=== PATIENT | male | born 1965 | race Hispanic/Latino ===

== ENCOUNTER 2021-07-11 16:30 | Inpatient (IN) | payer OTHER, SELFPAY ==
--- OUTSIDE RECORDS SUMMARY | 2021-07-11 16:37 | XMS REPORT | Continuity of Care Document ---
:1965 Author Organization [facility] t Address [address] [place] [address] Care Team Providers Name Role Phone MOY HINES Attending Clinician Unavailable MARLYS PETTIT Attending Clinician Unavailable Hayder SNAGGERMoy Luz Attending Clinician Pob, Adc Lab Main Attending Clinician Unavailable Doctor Unassigned, Name Attending Clinician Unavailable Vtc-Lab Attending Clinician Unavailable Scooter Coats DO Attending Clinician MD MANNY Attending Clinician Unavailable MANNY Attending Clinician Unavailable OSCAR PIMENTEL Attending Clinician Unavailable Aubrey ENG Attending Clinician MD MANNY Admitting Clinician Unavailable OSCAR PIMENTEL Admitting Clinician Unavailable Payers Payer Name Policy Type Policy Number Effective Date Expiration Date S ource Problems Condition Condition Condition Status Onset Resolution Last Treating Co mments Source Name Details Category Date Date Treatment Clinician Date Colon Colon Disease [facility] 2018[facility] [place] [facility] [place] screening [place] note Medical might be Branch different from the original. Added automatic ally from request for surgery [id number] Family Family Disease Active 2018-08 Overview: [facility] s history of history of 0-30 [place] ity of colon colon 00:00: g of this [place] cancer in cancer in 00 note Medi casimiro father father might be Branch different from the original. Added automatic ally from request for surgery [id number] Mild Mild Disease Active Univers intermitte intermitte 02-25 [place] of nt asthma [place] asthma [place] 00 Medical exacerbati exacerbati Br anch on on Prediabete Prediabete Disease Active U nivers s s 02-25 ity of 00:00: [place] 00 Medical Branch Elevated Elevated Disease Active Unive rs liver liver 02-25 ity of enzymes enzymes 00:00: [place] 00 Medical Branch Allergies, Adverse Reactions, Alerts Allergy Allergy Status Severity Reaction(s) Onset Inactive Treating Comm ents Source Name Type Date Date Clinician Statins- Propensi Active Other - See 2017-08 Muscle U nivers Hmg-Coa ty to comments 2-13 cramping ity o f Reductas adverse 00:00: [place] e reaction 00 Medical Inhibito s to Branch rs drug STATINS- Drug Active Other-Cmnt 2017-08 Univ ers HMG-COA Class 2-13 ity of REDUCTAS 00:00: [place] E 00 Medical INHIBITO Branch RS Social History Social Habit Start Date Stop Date Quantity Comments Source Exposure to Not sure [facility] SARS-CoV-2 [facility] (event) [place] History of User of smokeless Univers ity of tobacco use tobacco [facility] Tobacco use and 2021-02-16 2021-02-16 Former user Universi ty of exposure 00:00:00 00:00:00 [facility] Alcohol intake 2021-02-16 2021-02-16 Current drinker Unive rsity of 00:00:00 00:00:00 of alcohol [facility] (finding) [place] Alcohol Comment 2018-08-07 2018-08-07 1-2 per month Univer sity of 00:00:00 00:00:00 [facility] Sex [birth year] At [birth year] Universit y of 00:00:00 00:00:00 [facility] Smoking Status Start Date Stop Date Source Never smoker [facility] Medications Ordered Filled Start Stop Current Ordering Indication Dosage Frequency Signature Comments Components Source Medication Medication Date Date Medication? Clinician (SIG) Name Name ONELCHAS, 2020- No [id number] 2g Take 2 [place] omega-3-aci 7- 10-08 capsules ity of d ethyl 00:00: 04:59 by mouth 2 [place] esters, 1 00 :00 (two) Medical gram times Branch capsule daily for 90 days. BERENICECEPA Yes [id number] 2g Take 2 U nivers gram 7-08 capsules ity of capsule 00:00: [place] 2 [place] (two) Medical times Branch daily. VASCEPA Yes [id number] 2g Take 2 U nivers gram 7-08 capsules ity of capsule 00:00: [place] 2 [place] 00 (two) Medical times Branch daily. albuterol 2020-0 2021- No [id number] 2.5mg Inhale 3 Univers 2.5 mg /3 6-28 09-27 mL every 4 ity of mL (0.083 00:00: 04:59 (four) [place] %) 00 :00 hours as Medical nebulizer needed for Bran ch solution Wheezing or Shortness of Breath for up to 90 days. albuterol 2020-0 2021- No [id number] 2.5mg Inhale 3 Univers 2.5 mg /3 6-28 09-27 mL every 4 ity of mL (0.083 00:00: 04:59 (four) [place] %) 00 :00 hours as Medical nebulizer needed for Bran ch solution Wheezing or Shortness of Breath for up to 90 days. albuterol 2020-0 2021- No [id number] 2.5mg Inhale 3 Univers 2.5 mg /3 6-28 09-27 mL every 4 ity of mL (0.083 00:00: 04:59 (four) [place] %) 00 :00 hours as Medical nebulizer needed for Bran ch solution Wheezing or Shortness of Breath for up to 90 days. albuterol 2020-0 2021- No [id number] 2.5mg Inhale 3 Univers 2.5 mg /3 6-28 09-27 mL every 4 ity of mL (0.083 00:00: 04:59 (four) [place] %) 00 :00 hours as Medical nebulizer needed for Bran ch solution Wheezing or Shortness of Breath for up to 90 days. albuterol 2020-0 2021- No [id number] 2.5mg Inhale 3 Univers 2.5 mg /3 6-28 09-27 mL every 4 ity of mL (0.083 00:00: 04:59 (four) [place] %) 00 :00 hours as Medical nebulizer needed for Bran ch solution Wheezing or Shortness of Breath for up to 90 days. albuterol 2020-0 Yes [id number] 2.5mg Inhale 3 Univers 2.5 mg /3 6-25 mL every 4 ity of mL (0.083 00:00: (four) [place] %) 00 hours as Medical nebulizer needed for Bran ch solution Wheezing or Shortness of Breath. azelastine Yes [id number] 2{spray Use 2 Univers 137 mcg 6-25 } Sprays in ity of (0.1 %) 00:00: each [place] nasal spray 00 nostril Medic al daily. Use Branch in each nostril as directed ezetimibe Yes [id number] 10mg Take 1 U nivers 10 mg 6-25 tablet by ity of tablet 00:00: mouth [place] 00 daily. Medical Branch fluticasone Yes [id number] 2{spray Use 2 Univers propionate 6-25 } Sprays in ity of 50 00:00: each [place] mcg/actuati 00 nostril Medic al on nasal daily. Branch spray gabapentin Yes [id number] 100mg Take 1 Univers 100 mg 6-25 capsule by ity of capsule 00:00: mouth 3 [place] 00 (three) Medical times Branch daily as needed for Pain (scale 4-6). icosapent Yes [id number] 2g Take 2 U nivers ethyL 6-25 capsules ity of (VASCEPA) 1 00:00: by mouth 2 [place] gram 00 (two) Medical capsule times Branch daily. ipratropium Yes [id number] .5mg Inhale 2.5 Univers 0.02 % 6-25 mL every 6 ity of nebulizer 00:00: (six) [place] solution 00 hours as Medical needed for Branch Wheezing or Shortness of Breath. liraglutide Yes [id number] .6mg inject 0.6 Univers (VICTOZA 6-25 mg under ity of 2-DIANA) 0.6 00:00: the skin [place] as mg/0.1 mL 00 daily. Medical (18 mg/3 Branch mL) injection lisinopriL Yes [id number] 5mg Take 1 U nivers 5 mg tablet 6-25 tablet by ity of 00:00: mouth [place] 00 daily. Medical Branch metFORMIN Yes [id number] 500mg Take 1 Univers 500 mg 6-25 tablet by ity of tablet 00:00: mouth 2 [place] 00 (two) Medical times Branch daily with meals. montelukast Yes [id number] 10mg Take 1 Univers 10 mg 6-25 tablet by ity of tablet 00:00: mouth [place] 00 daily. Medical Branch sildenafiL Yes [id number] 50mg Take 1 Univers 50 mg 6-25 tablet by ity of tablet 00:00: mouth as [place] 00 needed for Medical Other (PRN Branch ED). albuterol 0 Yes [id number] 2.5mg Inhale 3 Univers 2.5 mg /3 6-25 mL every 4 ity of mL (0.083 00:00: (four) [place] %) 00 hours as Medical nebulizer needed for Bran ch solution Wheezing or Shortness of Breath. azelastine Yes [id number] 2{spray Use 2 Univers 137 mcg 6-25 } Sprays in ity of (0.1 %) 00:00: each [place] nasal spray 00 nostril Medic al daily. Use Branch in each nostril as directed ezetimibe Yes [id number] 10mg Take 1 U nivers 10 mg 6-25 tablet by ity of tablet 00:00: mouth [place] 00 daily. Medical Branch fluticasone Yes [id number] 2{spray Use 2 Univers propionate 6-25 } Sprays in ity of 50 00:00: each [place] mcg/actuati 00 nostril Medic al on nasal daily. Branch spray gabapentin Yes [id number] 100mg Take 1 Univers 100 mg 6-25 capsule by ity of capsule 00:00: mouth 3 [place] 00 (three) Medical times Branch daily as needed for Pain (scale 4-6). icosapent Yes [id number] 2g Take 2 U nivers ethyL 6-25 capsules ity of (VASCEPA) 1 00:00: by mouth 2 [place] gram 00 (two) Medical capsule times Branch daily. ipratropium Yes [id number] .5mg Inhale 2.5 Univers 0.02 % 6-25 mL every 6 ity of nebulizer 00:00: (six) [place] solution 00 hours as Medical needed for Branch Wheezing or Shortness of Breath. liraglutide Yes [id number] .6mg inject 0.6 Univers (VICTOZA 6-25 mg under ity of 2-DIANA) 0.6 00:00: the skin [place] mg/0.1 mL 00 daily. Medical (18 mg/3 Branch mL) injection lisinopriL Yes [id number] 5mg Take 1 U nivers 5 mg tablet 6-25 tablet by ity of 00:00: mouth [place] 00 daily. Medical Branch metFORMIN Yes [id number] 500mg Take 1 Univers 500 mg 6-25 tablet by ity of tablet 00:00: mouth 2 [place] 00 (two) Medical times Branch daily with meals. montelukast Yes [id number] 10mg Take 1 Univers 10 mg 6-25 tablet by ity of tablet 00:00: mouth [place] 00 daily. Medical Branch sildenafiL Yes [id number] 50mg Take 1 Univers 50 mg 6-25 tablet by ity of tablet 00:00: mouth as [place] 00 needed for Medical Other (PRN Branch ED). azelastine Yes [id number] 2{spray Use 2 Univers 137 mcg 6-25 } Sprays in ity of (0.1 %) 00:00: each [place] nasal spray 00 nostril Medic al daily. Use Branch in each nostril as directed ezetimibe Yes [id number] 10mg Take 1 U nivers 10 mg 6-25 tablet by ity of tablet 00:00: mouth [place] 00 daily. Medical Branch fluticasone Yes [id number] 2{spray Use 2 Univers propionate 6-25 } Sprays in ity of 50 00:00: each [place] mcg/actuati 00 nostril Medic al on nasal daily. Branch spray gabapentin Yes [id number] 100mg Take 1 Univers 100 mg 6-25 capsule by ity of capsule 00:00: mouth 3 [place] 00 (three) Medical times Branch daily as needed for Pain (scale 4-6). icosapent Yes [id number] 2g Take 2 U nivers ethyL 6-25 capsules ity of (VASCEPA) 1 00:00: by mouth 2 [place] gram 00 (two) Medical capsule times Branch daily. ipratropium Yes [id number] .5mg Inhale 2.5 Univers 0.02 % 6-25 mL every 6 ity of nebulizer 00:00: (six) [place] solution 00 hours as Medical needed for Branch Wheezing or Shortness of Breath. liraglutide Yes [id number] .6mg inject 0.6 Univers (VICTOZA 6-25 mg under ity of 2-DIANA) 0.6 00:00: the skin [place] mg/0.1 mL 00 daily. Medical (18 mg/3 Branch mL) injection lisinopriL Yes [id number] 5mg Take 1 U nivers 5 mg tablet 6-25 tablet by ity of 00:00: mouth [place] 00 daily. Medical Branch metFORMIN Yes [id number] 500mg Take 1 Univers 500 mg 6-25 tablet by ity of tablet 00:00: mouth 2 [place] 00 (two) Medical times Branch daily with meals. montelukast Yes [id number] 10mg Take 1 Univers 10 mg 6-25 tablet by ity of tablet 00:00: mouth [place] 00 daily. Medical Branch sildenafiL Yes [id number] 50mg Take 1 Univers 50 mg 6-25 tablet by ity of tablet 00:00: mouth as [place] 00 needed for Medical Other (PRN Branch ED). azelastine Yes [id number] 2{spray Use 2 Univers 137 mcg 6-25 } Sprays in ity of (0.1 %) 00:00: each [place] nasal spray 00 nostril Medic al daily. Use Branch in each nostril as directed ezetimibe Yes [id number] 10mg Take 1 U nivers 10 mg 6-25 tablet by ity of tablet 00:00: mouth [place] 00 daily. Medical Branch fluticasone Yes [id number] 2{spray Use 2 Univers propionate 6-25 } Sprays in ity of 50 00:00: each [place] mcg/actuati 00 nostril Medic al on nasal daily. Branch spray gabapentin Yes [id number] 100mg Take 1 Univers 100 mg 6-25 capsule by ity of capsule 00:00: mouth 3 [place] 00 (three) Medical times Branch daily as needed for Pain (scale 4-6). icosapent Yes [id number] 2g Take 2 U nivers ethyL 6-25 capsules ity of (VASCEPA) 1 00:00: by mouth 2 [place] gram 00 (two) Medical capsule times Branch daily. ipratropium Yes [id number] .5mg Inhale 2.5 Univers 0.02 % 6-25 mL every 6 ity of nebulizer 00:00: (six) [place] solution 00 hours as Medical needed for Branch Wheezing or Shortness of Breath. liraglutide Yes [id number] .6mg inject 0.6 Univers (VICTOZA 6-25 mg under ity of 2-DIANA) 0.6 00:00: the skin [place] mg/0.1 mL 00 daily. Medical (18 mg/3 Branch mL) injection lisinopriL Yes [id number] 5mg Take 1 U nivers 5 mg tablet 6-25 tablet by ity of 00:00: mouth [place] 00 daily. Medical Branch metFORMIN Yes [id number] 500mg Take 1 Univers 500 mg 6-25 tablet by ity of tablet 00:00: mouth 2 [place] 00 (two) Medical times Branch daily with meals. montelukast Yes [id number] 10mg Take 1 Univers 10 mg 6-25 tablet by ity of tablet 00:00: mouth [place] 00 daily. Medical Branch sildenafiL Yes [id number] 50mg Take 1 Univers 50 mg 6-25 tablet by ity of tablet 00:00: mouth as [place] 00 needed for Medical Other (PRN Branch ED). azelastine Yes [id number] 2{spray Use 2 Univers 137 mcg 6-25 } Sprays in ity of (0.1 %) 00:00: each [place] nasal spray 00 nostril Medic al daily. Use Branch in each nostril as directed ezetimibe Yes [id number] 10mg Take 1 U nivers 10 mg 6-25 tablet by ity of tablet 00:00: mouth [place] 00 daily. Medical Branch fluticasone Yes [id number] 2{spray Use 2 Univers propionate 6-25 } Sprays in ity of 50 00:00: each [place] mcg/actuati 00 nostril Medic al on nasal daily. Branch spray gabapentin Yes [id number] 100mg Take 1 Univers 100 mg 6-25 capsule by ity of capsule 00:00: mouth 3 [place] 00 (three) Medical times Branch daily as needed for Pain (scale 4-6). icosapent Yes [id number] 2g Take 2 U nivers ethyL 6-25 capsules ity of (VASCEPA) 1 00:00: by mouth 2 [place] gram 00 (two) Medical capsule times Branch daily. ipratropium Yes [id number] .5mg Inhale 2.5 Univers 0.02 % 6-25 mL every 6 ity of nebulizer 00:00: (six) [place] solution 00 hours as Medical needed for Branch Wheezing or Shortness of Breath. liraglutide Yes [id number] .6mg inject 0.6 Univers (VICTOZA 6-25 mg under ity of 2-DIANA) 0.6 00:00: the skin [place] as mg/0.1 mL 00 daily. Medical (18 mg/3 Branch mL) injection lisinopriL Yes [id number] 5mg Take 1 U nivers 5 mg tablet 6-25 tablet by ity of 00:00: mouth [place] 00 daily. Medical Branch metFORMIN Yes [id number] 500mg Take 1 Univers 500 mg 6-25 tablet by ity of tablet 00:00: mouth 2 [place] 00 (two) Medical times Branch daily with meals. montelukast Yes [id number] 10mg Take 1 Univers 10 mg 6-25 tablet by ity of tablet 00:00: mouth [place] 00 daily. Medical Branch sildenafiL Yes [id number] 50mg Take 1 Univers 50 mg 6-25 tablet by ity of tablet 00:00: mouth as [place] 00 needed for Medical Other (PRN Branch ED). azelastine Yes [id number] 2{spray Use 2 Univers 137 mcg 6-25 } Sprays in ity of (0.1 %) 00:00: each [place] nasal spray 00 nostril Medic al daily. Use Branch in each nostril as directed ezetimibe Yes [id number] 10mg Take 1 U nivers 10 mg 6-25 tablet by ity of tablet 00:00: mouth [place] 00 daily. Medical Branch fluticasone Yes [id number] 2{spray Use 2 Univers propionate 6-25 } Sprays in ity of 50 00:00: each [place] mcg/actuati 00 nostril Medic al on nasal daily. Branch spray gabapentin Yes [id number] 100mg Take 1 Univers 100 mg 6-25 capsule by ity of capsule 00:00: mouth 3 [place] 00 (three) Medical times Branch daily as needed for Pain (scale 4-6). ipratropium Yes [id number] .5mg Inhale 2.5 Univers 0.02 % 6-25 mL every 6 ity of nebulizer 00:00: (six) [place] solution 00 hours as Medical needed for Branch Wheezing or Shortness of Breath. liraglutide Yes [id number] .6mg inject 0.6 Univers (VICTOZA 6-25 mg under ity of 2-DIANA) 0.6 00:00: the skin [place] as mg/0.1 mL 00 daily. Medical (18 mg/3 Branch mL) injection lisinopriL Yes [id number] 5mg Take 1 U nivers 5 mg tablet 6-25 tablet by ity of 00:00: mouth [place] 00 daily. Medical Branch metFORMIN Yes [id number] 500mg Take 1 Univers 500 mg 6-25 tablet by ity of tablet 00:00: mouth 2 00 (two) Medical times Branch daily with meals. montelukast Yes [id number] 10mg Take 1 Univers 10 mg 6-25 tablet by ity of tablet 00:00: mouth [place] 00 daily. Medical Branch sildenafiL Yes [id number] 50mg Take 1 Univers 50 mg 6-25 tablet by ity of tablet 00:00: mouth as [place] 00 needed for Medical Other (PRN Branch ED). azelastine Yes [id number] 2{spray Use 2 Univers 137 mcg 6-25 } Sprays in ity of (0.1 %) 00:00: each [place] nasal spray 00 nostril Medic al daily. Use Branch in each nostril as directed ezetimibe Yes [id number] 10mg Take 1 U nivers 10 mg 6-25 tablet by ity of tablet 00:00: mouth [place] 00 daily. Medical Branch fluticasone Yes [id number] 2{spray Use 2 [facility] propionate 6-25 } Sprays in ity of 50 00:00: each [place] mcg/actuati 00 nostril Medic al on nasal daily. Branch spray gabapentin Yes [id number] 100mg Take 1 Univers 100 mg 6-25 capsule by ity of capsule 00:00: mouth 3 [place] 00 (three) Medical times Branch daily as needed for Pain (scale 4-6). ipratropium Yes [id number] .5mg Inhale 2.5 Univers 0.02 % 6-25 mL every 6 ity of nebulizer 00:00: (six) [place] solution 00 hours as Medical needed for Branch Wheezing or Shortness of Breath. liraglutide Yes [id number] .6mg inject 0.6 Univers (VICTOZA 6-25 mg under ity of 2-DIANA) 0.6 00:00: the skin [place] as mg/0.1 mL 00 daily. Medical (18 mg/3 Branch mL) injection lisinopriL 0 Yes [id number] 5mg Take 1 U nivers 5 mg tablet 6-25 tablet by ity of 00:00: mouth [place] 00 daily. Medical Branch metFORMIN 0 Yes [id number] 500mg Take 1 Univers 500 mg 6-25 tablet by ity of tablet 00:00: mouth 2 [place] 00 (two) Medical times Branch daily with meals. montelukast Yes [id number] 10mg Take 1 Univers 10 mg 6-25 tablet by ity of tablet 00:00: mouth [place] 00 daily. Medical Branch sildenafiL Yes [id number] 50mg Take 1 Univers 50 mg 6-25 tablet by ity of tablet 00:00: mouth as [place] 00 needed for Medical Other (PRN Branch ED). icosapent 2020- No [id number] 2g Take 2 [facility] ethyL 6-25 07-08 capsules ity of (VASCEPA) 1 00:00: 00:00 by mouth 2 [place] gram 00 :00 (two) Medical capsule times Branch daily. albuterol 2020- No [id number] 2.5mg Inhale 3 Univers 2.5 mg /3 6-25 06-28 mL every 4 ity of mL (0.083 00:00: 00:00 (four) [place] %) 00 :00 hours as Medical nebulizer needed for Bran ch solution Wheezing or Shortness of Breath. ezetimibe Yes [id number] 10mg Take 1 U nivers 10 mg 6-24 tablet by ity of tablet 00:00: mouth [place] 00 daily. Medical Branch albuterol Yes [id number] 2.5mg Inhale 3 Univers 2.5 mg /3 6-24 mL every 4 ity of mL (0.083 00:00: (four) [place] %) 00 hours as Medical nebulizer needed for Bran ch solution Wheezing or Shortness of Breath. azelastine Yes [id number] 2{spray Use 2 Univers 137 mcg 6-24 } Sprays in ity of (0.1 %) 00:00: each [place] nasal spray 00 nostril Medic al daily. Use Branch in each nostril as directed fluticasone Yes [id number] 2{spray Use 2 [facility] propionate 6-24 } Sprays in ity of 50 00:00: each [place] mcg/actuati 00 nostril Medic al on nasal daily. Branch spray ipratropium Yes [id number] .5mg Inhale 2.5 Univers 0.02 % 6-24 mL every 6 ity of nebulizer 00:00: (six) [place] solution 00 hours as Medical needed for Branch Wheezing or Shortness of Breath. lisinopriL Yes [id number] 5mg Take 1 U nivers 5 mg tablet 6-24 tablet by ity of 00:00: mouth [place] 00 daily. Medical Branch metFORMIN Yes [id number] 500mg Take 1 [facility] 500 mg 6-24 tablet by ity of tablet 00:00: mouth 2 [place] 00 (two) Medical times Branch daily with meals. montelukast Yes [id number] 10mg Take 1 Univers 10 mg 6-24 tablet by ity of tablet 00:00: mouth [place] 00 daily. Medical Branch gabapentin Yes [id number] 100mg Take 1 [facility] 100 mg 6-24 capsule by ity of capsule 00:00: mouth 3 [place] 00 (three) Medical times Branch daily as needed for Pain (scale 4-6). liraglutide Yes [id number] .6mg inject 0.6 Univers (VICTOZA 6-24 mg under ity of 2-DIANA) 0.6 00:00: the skin [place] as mg/0.1 mL 00 daily. Medical (18 mg/3 Branch mL) injection sildenafiL Yes [id number] 50mg Take 1 Univers 50 mg 6-24 tablet by ity of tablet 00:00: mouth as [place] 00 needed for Medical Other (PRN Branch ED). ezetimibe Yes [id number] 10mg Take 1 U nivers 10 mg 6-24 tablet by ity of tablet 00:00: mouth [place] 00 daily. Medical Branch albuterol Yes [id number] 2.5mg Inhale 3 Univers 2.5 mg /3 6-24 mL every 4 ity of mL (0.083 00:00: (four) [place] %) 00 hours as Medical nebulizer needed for Bran ch solution Wheezing or Shortness of Breath. azelastine Yes [id number] 2{spray Use 2 [facility] 137 mcg 6-24 } Sprays in ity of (0.1 %) 00:00: each [place] nasal spray 00 nostril Medic al daily. Use Branch in each nostril as directed fluticasone Yes [id number] 2{spray Use 2 [facility] propionate 6-24 } Sprays in ity of 50 00:00: each [place] mcg/actuati 00 nostril Medic al on nasal daily. Branch spray ipratropium Yes [id number] .5mg Inhale 2.5 Univers 0.02 % 6-24 mL every 6 ity of nebulizer 00:00: (six) [place] solution 00 hours as Medical needed for Branch Wheezing or Shortness of Breath. lisinopriL Yes [id number] 5mg Take 1 U nivers 5 mg tablet 6-24 tablet by ity of 00:00: mouth [place] 00 daily. Medical Branch metFORMIN Yes [id number] 500mg Take 1 [facility] 500 mg 6-24 tablet by ity of tablet 00:00: mouth 2 [place] 00 (two) Medical times Branch daily with meals. montelukast Yes [id number] 10mg Take 1 [facility] 10 mg 6-24 tablet by ity of tablet 00:00: mouth [place] 00 daily. Medical Branch gabapentin Yes [id number] 100mg Take 1 [facility] 100 mg 6-24 capsule by ity of capsule 00:00: mouth 3 [place] 00 (three) Medical times Branch daily as needed for Pain (scale 4-6). liraglutide Yes [id number] .6mg inject 0.6 Univers (VICTOZA 6-24 mg under ity of 2-DIANA) 0.6 00:00: the skin [place] as mg/0.1 mL 00 daily. Medical (18 mg/3 Branch mL) injection sildenafiL Yes [id number] 50mg Take 1 [facility] 50 mg 6-24 tablet by ity of tablet 00:00: mouth as [place] 00 needed for Medical Other (PRN Branch ED). icosapent 2020- No [id number] 2g Take 2 Univers ethyL 6-24 09-23 capsules ity of (VASCEPA) 1 00:00: 04:59 by mouth 2 [place] gram 00 :00 (two) Medical capsule times Branch daily for 90 days. icosapent 2020- No [id number] 2g Take 2 Univers ethyL 6-24 09-23 capsules ity of (VASCEPA) 1 00:00: 04:59 by mouth 2 [place] gram 00 :00 (two) Medical capsule times Branch daily for 90 days. ezetimibe 2020- No [id number] 10mg Take 1 Univers 10 mg 6-24 06-25 tablet by ity of tablet 00:00: 00:00 mouth [place] 00 :00 daily. Medical Branch icosapent 2020- No [id number] 2g Take 2 [facility] ethyL 6-24 06-25 capsules ity of (VASCEPA) 1 00:00: 00:00 by mouth 2 [place] gram 00 :00 (two) Medical capsule times Branch daily for 90 days. albuterol 2020- No [id number] 2.5mg Inhale 3 Univers 2.5 mg /3 6-24 06-25 mL every 4 ity of mL (0.083 00:00: 00:00 (four) [place] %) 00 :00 hours as Medical nebulizer needed for Bran ch solution Wheezing or Shortness of Breath. azelastine 2020- No [id number] 2{spray Use 2 [facility] 137 mcg 6-24 06-25 } Sprays in ity of (0.1 %) 00:00: 00:00 each [place] nasal spray 00 :00 nostril Medic al daily. Use Branch in each nostril as directed fluticasone 1- No [id number] 2{spray Use 2 [facility] propionate 02-16-25 } Sprays in ity of 50 00:00: 00:00 each [place] mcg/actuati 00 :00 nostril Medic al on nasal daily. Branch spray ipratropium 2020- No [id number] .5mg Inhale 2.5 Univers 0.02 % 02-16-25 mL every 6 ity of nebulizer 00:00: 00:00 (six) [place] solution 00 :00 hours as Medical needed for Branch Wheezing or Shortness of Breath. lisinopriL 2020- No [id number] 5mg Take 1 Univers 5 mg tablet 02-16-25 tablet by it y of 00:00: 00:00 mouth [place] 00 :00 daily. Medical Branch metFORMIN 2020- No [id number] 500mg Take 1 [facility] 500 mg 02-16-25 tablet by ity of tablet 00:00: 00:00 mouth 2 [place] 00 :00 (two) Medical times Branch daily with meals. montelukast 2020- No [id number] 10mg Take 1 [facility] 10 mg 02-16-25 tablet by ity of tablet 00:00: 00:00 mouth [place] 00 :00 daily. Medical Branch gabapentin 2020- No [id number] 100mg Take 1 [facility] 100 mg 02-16-25 capsule by ity of capsule 00:00: 00:00 mouth 3 [place] 00 :00 (three) Medical times Branch daily as needed for Pain (scale 4-6). liraglutide 2020- No [id number] .6mg inject 0.6 [facility] (VICTOZA 6-24 06-25 mg under ity of 2-DIANA) 0.6 00:00: 00:00 the skin [place] mg/0.1 mL 00 :00 daily. Medical (18 mg/3 Branch mL) injection sildenafiL 1- No [id number] 50mg Take 1 [facility] 50 mg 6-24 06-25 tablet by ity of tablet 00:00: 00:00 mouth as [place] 00 :00 needed for Medical Other (PRN Branch ED). metFORMIN Yes [id number] 500mg Take 1 [facility] 500 mg 5-14 tablet by ity of tablet 00:00: mouth 2 [place] 00 (two) Medical times [place] daily with meals. lisinopriL Yes [id number] 5mg Take 1 U nivers 5 mg tablet 5-14 tablet by ity of 00:00: mouth [place] 00 daily. Medical Branch montelukast Yes [id number] 10mg Take 1 [facility] 10 mg 5-14 tablet by ity of tablet 00:00: mouth [place] 00 daily. Medical Branch azelastine Yes [id number] 2{spray Use 2 [facility] 137 mcg 5-14 } Sprays in ity of (0.1 %) 00:00: each [place] nasal spray 00 nostril Medic al daily. Use Branch in each nostril as directed fluticasone Yes [id number] 2{spray Use 2 [facility] propionate 5-14 } Sprays in ity of 50 00:00: each [place] mcg/actuati 00 nostril Medic al on nasal daily. Branch spray metFORMIN Yes [id number] 500mg Take 1 [facility] 500 mg 5-14 tablet by ity of tablet 00:00: mouth 2 [place] 00 (two) Medical times [place] daily with meals. lisinopriL Yes [id number] 5mg Take 1 [facility] 5 mg tablet 5-14 tablet by ity of 00:00: mouth [place] 00 daily. Medical Branch montelukast Yes [id number] 10mg Take 1 [facility] 10 mg 5-14 tablet by ity of tablet 00:00: mouth [place] 00 daily. Medical Branch azelastine Yes [id number] 2{spray Use 2 [facility] 137 mcg 5-14 } Sprays in ity of (0.1 %) 00:00: each [place] nasal spray 00 nostril Medic al daily. Use Branch in each nostril as directed fluticasone 2020-0 Yes [id number] 2{spray Use 2 [facility] propionate 5-14 } Sprays in ity of 50 00:00: each [place] mcg/actuati 00 nostril Medic al on nasal daily. Branch spray metFORMIN Yes [id number] 500mg Take 1 [facility] 500 mg 5-14 tablet by ity of tablet 00:00: mouth 2 (two) Medical times [place] daily with meals. lisinopriL Yes [id number] 5mg Take 1 [facility] 5 mg tablet 5-14 tablet by ity of 00:00: mouth [place] 00 daily. Medical Branch montelukast Yes [id number] 10mg Take 1 [facility] 10 mg 5-14 tablet by ity of tablet 00:00: mouth [place] 00 daily. Medical Branch azelastine Yes [id number] 2{spray Use 2 [facility] 137 mcg 5-14 } Sprays in ity of (0.1 %) 00:00: each [place] nasal spray 00 nostril Medic al daily. Use Branch in each nostril as directed fluticasone Yes [id number] 2{spray Use 2 [facility] propionate 5-14 } Sprays in ity of 50 00:00: each [place] mcg/actuati 00 nostril Medic al on nasal daily. Branch spray metFORMIN Yes [id number] 500mg Take 1 [facility] 500 mg 5-14 tablet by ity of tablet 00:00: mouth 2 (two) Medical times [place] daily with meals. lisinopriL Yes [id number] 5mg Take 1 [facility] 5 mg tablet 5-14 tablet by ity of 00:00: mouth [place] 00 daily. Medical Branch montelukast Yes [id number] 10mg Take 1 [facility] 10 mg 5-14 tablet by ity of tablet 00:00: mouth [place] 00 daily. Medical Branch azelastine Yes [id number] 2{spray Use 2 [facility] 137 mcg 5-14 } Sprays in ity of (0.1 %) 00:00: each [place] nasal spray 00 nostril Medic al daily. Use Branch in each nostril as directed fluticasone Yes [id number] 2{spray Use 2 [facility] propionate 5-14 } Sprays in ity of 50 00:00: each [place] mcg/actuati 00 nostril Medic al on nasal daily. Branch spray metFORMIN Yes [id number] 500mg Take 1 [facility] 500 mg 5-14 tablet by ity of tablet 00:00: mouth 2 [place] 00 (two) Medical times [place] daily with meals. lisinopriL Yes [id number] 5mg Take 1 [facility] 5 mg tablet 5-14 tablet by ity of 00:00: mouth [place] 00 daily. Medical Branch montelukast Yes [id number] 10mg Take 1 [facility] 10 mg 5-14 tablet by ity of tablet 00:00: mouth [place] 00 daily. Medical Branch azelastine Yes [id number] 2{spray Use 2 [facility] 137 mcg 5-14 } Sprays in ity of (0.1 %) 00:00: each [place] nasal spray 00 nostril Medic al daily. Use Branch in each nostril as directed fluticasone Yes [id number] 2{spray Use 2 [facility] propionate 5-14 } Sprays in ity of 50 00:00: each [place] mcg/actuati 00 nostril Medic al on nasal daily. Branch spray metFORMIN 2020- No [id number] 500mg Take 1 [facility] 500 mg 5-14 06-24 tablet by ity of tablet 00:00: 00:00 mouth 2 [place] 00 :00 (two) Medical times [place] daily with meals. lisinopriL 2020- No [id number] 5mg Take 1 [facility] 5 mg tablet 5-14 06-24 tablet by it y of 00:00: 00:00 mouth [place] 00 :00 daily. Medical Branch montelukast 2020- No [id number] 10mg Take 1 [facility] 10 mg 5-14 06-24 tablet by ity of tablet 00:00: 00:00 mouth [place] 00 :00 daily. Medical Branch azelastine 2020- No [id number] 2{spray Use 2 [facility] 137 mcg 5-14 06-24 } Sprays in ity of (0.1 %) 00:00: 00:00 each [place] nasal spray 00 :00 nostril Medic al daily. Use Branch in each nostril as directed fluticasone 2020- No [id number] 2{spray Use 2 [facility] propionate 5-14 06-24 } Sprays in ity of 50 00:00: 00:00 each [place] mcg/actuati 00 :00 nostril Medic al on nasal daily. Branch spray metFORMIN 2020- No [id number] 500mg Take 1 [facility] 500 mg 5-06 02-24 tablet by ity of tablet 00:00: 00:00 mouth 2 [place] 00 :00 (two) Medical times Branch daily with meals. lisinopriL 2020- No [id number] 5mg Take 1 [facility] 5 mg tablet 01-06-24 tablet by it y of 00:00: 00:00 mouth [place] 00 :00 daily. Medical Branch montelukast 2020- No [id number] 10mg Take 1 [facility] 10 mg -06 02-24 tablet by ity of tablet 00:00: 00:00 mouth [place] 00 :00 daily. Medical Branch azelastine 2020- No [id number] 2{spray Use 2 [facility] 137 mcg 01-0624 } Sprays in ity of (0.1 %) 00:00: 00:00 each [place] nasal spray 00 :00 nostril Medic al daily. Use Branch in each nostril as directed fluticasone 2020- No [id number] 2{spray Use 2 [facility] propionate 01-06-24 } Sprays in ity of 50 00:00: 00:00 each [place] mcg/actuati 00 :00 nostril Medic al on nasal daily. Branch spray gabapentin 2019-08 Yes [id number] 100mg Take 1 [facility] 100 mg 2-04 capsule by ity of capsule 00:00: mouth 3 [place] 00 (three) Medical times Branch daily as needed for Pain (scale 4-6). hydrocortis 2019-08 Yes [id number] Insert [facility] one 2-04 into ity of (ANUSOL-HC) 00:00: rectum 2 [place] 2.5 % 00 (two) Medical rectal times Branch cream daily. methylPREDN 2019-08 Yes [id number] Take by [facility] ISolone 2-04 mouth ity of (MEDROL, 00:00: SEE-INSTRU [place]IANA,) 4 mg 00 CTIONS. Medica l tablets follow Branch package directions azithromyci 2019-08 Yes [id number] 250mg Take 1 [facility] n 2-04 tablet by ity of (ZITHROMAX) 00:00: mouth [place] 250 mg 00 daily. Medical tablet Take 500 Branch mg day 1, then 250 mg days 2 to 5. gabapentin 2019-08 Yes [id number] 100mg Take 1 [facility] 100 mg 2-04 capsule by ity of capsule 00:00: mouth 3 [place] 00 (three) Medical times Branch daily as needed for Pain (scale 4-6). hydrocortis 2019-08 Yes [id number] Insert [facility] one 2-04 into ity of (ANUSOL-HC) 00:00: rectum 2 [place] 2.5 % 00 (two) Medical rectal times Branch cream daily. methylPREDN 2019-08 Yes [id number] Take by [facility] ISolone 2-04 mouth ity of (MEDROL, 00:00: SEE-INSTRU [place],) 4 mg 00 CTIONS. Medica l tablets follow Branch package directions azithromyci 2019-08 Yes [id number] 250mg Take 1 [facility] n 2-04 tablet by ity of (ZITHROMAX) 00:00: mouth [place] 250 mg 00 daily. Medical tablet Take 500 Branch mg day 1, then 250 mg days 2 to 5. gabapentin 2019-08 Yes [id number] 100mg Take 1 [facility] 100 mg 2-04 capsule by ity of capsule 00:00: mouth 3 (three) Medical times Branch daily as needed for Pain (scale 4-6). hydrocortis 2019-08 Yes [id number] Insert [facility] one 2-04 into ity of (ANUSOL-HC) 00:00: rectum 2 [place] 2.5 % 00 (two) Medical rectal times Branch cream daily. methylPREDN 2019-08 Yes [id number] Take by [facility] ISolone 2-04 mouth ity of (MEDROL, 00:00: SEE-INSTRU [place],) 4 mg 00 CTIONS. Medica l tablets follow Branch package directions azithromyci 2019-08 Yes [id number] 250mg Take 1 [facility] n 2-04 tablet by ity of (ZITHROMAX) 00:00: mouth [place] 250 mg 00 daily. Medical tablet Take 500 Branch mg day 1, then 250 mg days 2 to 5. gabapentin 2019-08 Yes [id number] 100mg Take 1 [facility] 100 mg 2-04 capsule by ity of capsule 00:00: mouth 3 [place] 00 (three) Medical times Branch daily as needed for Pain (scale 4-6). hydrocortis 2019-08 Yes [id number] Insert [facility] one 2-04 into ity of (ANUSOL-HC) 00:00: rectum 2 [place] 2.5 % 00 (two) Medical rectal times Branch cream daily. methylPREDN 2019-08 Yes [id number] Take by [facility] ISolone 2-04 mouth ity of (MEDROL, 00:00: SEE-INSTRU [place],) 4 mg 00 CTIONS. Medica l tablets follow Branch package directions azithromyci 2019-08 Yes [id number] 250mg Take 1 [facility] n 2-04 tablet by ity of (ZITHROMAX) 00:00: mouth [place] 250 mg 00 daily. Medical tablet Take 500 Branch mg day 1, then 250 mg days 2 to 5. gabapentin 2019-08 Yes [id number] 100mg Take 1 [facility] 100 mg 2-04 capsule by ity of capsule 00:00: mouth 3 (three) Medical times Branch daily as needed for Pain (scale 4-6). hydrocortis 2019-08 Yes [id number] Insert [facility] one 2-04 into ity of (ANUSOL-HC) 00:00: rectum 2 [place] 2.5 % 00 (two) Medical rectal times Branch cream daily. methylPREDN 2019-08 Yes [id number] Take by [facility] ISolone 2-04 mouth ity of (MEDROL, 00:00: SEE-INSTRU [place],) 4 mg 00 CTIONS. Medica l tablets follow Branch package directions azithromyci 2019-08 Yes [id number] 250mg Take 1 [facility] n 2-04 tablet by ity of (ZITHROMAX) 00:00: mouth [place] 250 mg 00 daily. Medical tablet Take 500 Branch mg day 1, then 250 mg days 2 to 5. gabapentin 2019-08 Yes [id number] 100mg Take 1 [facility] 100 mg 2-04 capsule by ity of capsule 00:00: mouth 3 [place] 00 (three) Medical times Branch daily as needed for Pain (scale 4-6). hydrocortis 2019-08 Yes [id number] Insert [facility] one 2-04 into ity of (ANUSOL-HC) 00:00: rectum 2 [place] 2.5 % 00 (two) Medical rectal times Branch cream daily. methylPREDN 2019-08 Yes [id number] Take by [facility] ISolone 2-04 mouth ity of (MEDROL, 00:00: SEE-INSTRU [place],) 4 mg 00 CTIONS. Medica l tablets follow Branch package directions azithromyci 2019-08 Yes [id number] 250mg Take 1 [facility] n 2-04 tablet by ity of (ZITHROMAX) 00:00: mouth [place] 250 mg 00 daily. Medical tablet Take 500 Branch mg day 1, then 250 mg days 2 to 5. gabapentin 2019-08 Yes [id number] 100mg Take 1 [facility] 100 mg 2-04 capsule by ity of capsule 00:00: mouth 3 [place] 00 (three) Medical times Branch daily as needed for Pain (scale 4-6). hydrocortis 2019-08 Yes [id number] Insert [facility] one 2-04 into ity of (ANUSOL-HC) 00:00: rectum 2 [place] 2.5 % 00 (two) Medical rectal times Branch cream daily. methylPREDN 2019-08 Yes [id number] Take by [facility] ISolone 2-04 mouth ity of (MEDROL, 00:00: SEE-INSTRU [place],) 4 mg 00 CTIONS. Medica l tablets follow Branch package directions azithromyci 2019-08 Yes [id number] 250mg Take 1 [facility] n 2-04 tablet by ity of (ZITHROMAX) 00:00: mouth [place] 250 mg 00 daily. Medical tablet Take 500 Branch mg day 1, then 250 mg days 2 to 5. gabapentin 2019-08 Yes [id number] 100mg Take 1 [facility] 100 mg 2-04 capsule by ity of capsule 00:00: mouth 3 [place] 00 (three) Medical times Branch daily as needed for Pain (scale 4-6). hydrocortis 2019-08 Yes [id number] Insert [facility] one 2-04 into ity of (ANUSOL-HC) 00:00: rectum 2 [place] 2.5 % 00 (two) Medical rectal times Branch cream daily. methylPREDN 2019-08 Yes [id number] Take by [facility] ISolone 2-04 mouth ity of (MEDROL, 00:00: SEE-INSTRU [place],) 4 mg 00 CTIONS. Medica l tablets follow Branch package directions azithromyci 2019-08 Yes [id number] 250mg Take 1 [facility] n 2-04 tablet by ity of (ZITHROMAX) 00:00: mouth [place] 250 mg 00 daily. Medical tablet Take 500 Branch mg day 1, then 250 mg days 2 to 5. gabapentin 2019-08 Yes [id number] 100mg Take 1 [facility] 100 mg 2-04 capsule by ity of capsule 00:00: mouth 3 [place] 00 (three) Medical times Branch daily as needed for Pain (scale 4-6). hydrocortis 2019-08 Yes [id number] Insert [facility] one 2-04 into ity of (ANUSOL-HC) 00:00: rectum 2 [place] 2.5 % 00 (two) Medical rectal times Branch cream daily. methylPREDN 2019-08 Yes [id number] Take by [facility] ISolone 2-04 mouth ity of (MEDROL, 00:00: SEE-INSTRU [place],) 4 mg 00 CTIONS. Medica l tablets follow Branch package directions azithromyci 2019-08 Yes [id number] 250mg Take 1 [facility] n 2-04 tablet by ity of (ZITHROMAX) 00:00: mouth [place] 250 mg 00 daily. Medical tablet Take 500 Branch mg day 1, then 250 mg days 2 to 5. gabapentin 2019-08 Yes [id number] 100mg Take 1 [facility] 100 mg 2-04 capsule by ity of capsule 00:00: mouth 3 [place] 00 (three) Medical times Branch daily as needed for Pain (scale 4-6). hydrocortis 2019-08 Yes [id number] Insert [facility] one 2-04 into ity of (ANUSOL-HC) 00:00: rectum 2 [place] 2.5 % 00 (two) Medical rectal times Branch cream daily. methylPREDN 2019-08 Yes [id number] Take by [facility] ISolone 2-04 mouth ity of (MEDROL, 00:00: SEE-INSTRU [place],) 4 mg 00 CTIONS. Medica l tablets follow Branch package directions azithromyci 2019-08 Yes [id number] 250mg Take 1 [facility] n 2-04 tablet by ity of (ZITHROMAX) 00:00: mouth [place] 250 mg 00 daily. Medical tablet Take 500 Branch mg day 1, then 250 mg days 2 to 5. gabapentin 2019-08 Yes [id number] 100mg Take 1 [facility] 100 mg 2-04 capsule by ity of capsule 00:00: mouth 3 [place] 00 (three) Medical times Branch daily as needed for Pain (scale 4-6). hydrocortis 2019-08 Yes [id number] Insert [facility] one 2-04 into ity of (ANUSOL-HC) 00:00: rectum 2 [place] 2.5 % 00 (two) Medical rectal times Branch cream daily. methylPREDN 2019-08 Yes [id number] Take by [facility] ISolone 2-04 mouth ity of (MEDROL, 00:00: SEE-INSTRU [place],) 4 mg 00 CTIONS. Medica l tablets follow Branch package directions azithromyci 2019-08 Yes [id number] 250mg Take 1 [facility] n 2-04 tablet by ity of (ZITHROMAX) 00:00: mouth [place] 250 mg 00 daily. Medical tablet Take 500 Branch mg day 1, then 250 mg days 2 to 5. gabapentin 2019-08 Yes [id number] 100mg Take 1 [facility] 100 mg 2-04 capsule by ity of capsule 00:00: mouth 3 [place] 00 (three) Medical times Branch daily as needed for Pain (scale 4-6). hydrocortis 2019-08 Yes [id number] Insert [facility] one 2-04 into ity of (ANUSOL-HC) 00:00: rectum 2 [place] 2.5 % 00 (two) Medical rectal times Branch cream daily. methylPREDN 2019-08 Yes [id number] Take by [facility] ISolone 2-04 mouth ity of (MEDROL, 00:00: SEE-INSTRU [place],) 4 mg 00 CTIONS. Medica l tablets follow Branch package directions azithromyci 2019-08 Yes [id number] 250mg Take 1 [facility] n 2-04 tablet by ity of (ZITHROMAX) 00:00: mouth [place] 250 mg 00 daily. Medical tablet Take 500 Branch mg day 1, then 250 mg days 2 to 5. gabapentin 2019-08 Yes [id number] 100mg Take 1 [facility] 100 mg 2-04 capsule by ity of capsule 00:00: mouth 3 [place] 00 (three) Medical times Branch daily as needed for Pain (scale 4-6). hydrocortis 2019-08 Yes [id number] Insert [facility] one 2-04 into ity of (ANUSOL-HC) 00:00: rectum 2 [place] 2.5 % 00 (two) Medical rectal times Branch cream daily. gabapentin 2019-08 Yes [id number] 100mg Take 1 [facility] 100 mg 2-04 capsule by ity of capsule 00:00: mouth 3 [place] 00 (three) Medical times Branch daily as needed for Pain (scale 4-6). hydrocortis 2019-08 Yes [id number] Insert [facility] one 2-04 into ity of (ANUSOL-HC) 00:00: rectum 2 [place] 2.5 % 00 (two) Medical rectal times Branch cream daily. gabapentin 2019-08 Yes [id number] 100mg Take 1 [facility] 100 mg 2-04 capsule by ity of capsule 00:00: mouth 3 [place] 00 (three) Medical times Branch daily as needed for Pain (scale 4-6). hydrocortis 2019-08 Yes [id number] Insert [facility] one 2-04 into ity of (ANUSOL-HC) 00:00: rectum 2 [place] 2.5 % 00 (two) Medical rectal times Branch cream daily. gabapentin 2019-08 Yes [id number] 100mg Take 1 [facility] 100 mg 2-04 capsule by ity of capsule 00:00: mouth 3 [place] 00 (three) Medical times Branch daily as needed for Pain (scale 4-6). hydrocortis 2019-08 Yes [id number] Insert [facility] one 2-04 into ity of (ANUSOL-HC) 00:00: rectum 2 [place] 2.5 % 00 (two) Medical rectal times Branch cream daily. gabapentin 2019-08 Yes [id number] 100mg Take 1 [facility] 100 mg 2-04 capsule by ity of capsule 00:00: mouth 3 [place] 00 (three) Medical times Branch daily as needed for Pain (scale 4-6). hydrocortis 2019-08 Yes [id number] Insert [facility] one 2-04 into ity of (ANUSOL-HC) 00:00: rectum 2 [place] 2.5 % 00 (two) Medical rectal times Branch cream daily. hydrocortis 2019-08 Yes [id number] Insert [facility] one 2-04 into ity of (ANUSOL-HC) 00:00: rectum 2 [place] 2.5 % 00 (two) Medical rectal times Branch cream daily. hydrocortis 2019-08 Yes [id number] Insert [facility] one 2-04 into ity of (ANUSOL-HC) 00:00: rectum 2 [place] 2.5 % 00 (two) Medical rectal times Branch cream daily. hydrocortis 2019-08 Yes [id number] Insert [facility] one 2-04 into ity of (ANUSOL-HC) 00:00: rectum 2 [place] 2.5 % 00 (two) Medical rectal times Branch cream daily. hydrocortis 2019-08 Yes [id number] Insert [facility] one 2-04 into ity of (ANUSOL-HC) 00:00: rectum 2 [place] 2.5 % 00 (two) Medical rectal times Branch cream daily. hydrocortis 2019-08 Yes [id number] Insert [facility] one 2-04 into ity of (ANUSOL-HC) 00:00: rectum 2 [place] 2.5 % 00 (two) Medical rectal times Branch cream daily. hydrocortis 2019-08 Yes [id number] Insert [facility] one 2-04 into ity of (ANUSOL-HC) 00:00: rectum 2 [place] 2.5 % 00 (two) Medical rectal times Branch cream daily. hydrocortis 2019-08 Yes [id number] Insert [facility] one 2-04 into ity of (ANUSOL-HC) 00:00: rectum 2 [place] 2.5 % 00 (two) Medical rectal times Branch cream daily. hydrocortis 2019-08 Yes [id number] Insert [facility] one 2-04 into ity of (ANUSOL-HC) 00:00: rectum 2 [place] 2.5 % 00 (two) Medical rectal times Branch cream daily. hydrocortis 2019-08 Yes [id number] Insert [facility] one 2-04 into ity of (ANUSOL-HC) 00:00: rectum 2 [place] 2.5 % 00 (two) Medical rectal times Branch cream daily. gabapentin 2019-08- No [id number] 100mg Take 1 [facility] 100 mg 2-04 06-24 capsule by ity of capsule 00:00: 00:00 mouth 3 [place] 00 :00 (three) Medical times Branch daily as needed for Pain (scale 4-6). gabapentin 2019-08- No [id number] 100mg Take 1 [facility] 100 mg 2-04 06-24 capsule by ity of capsule 00:00: 00:00 mouth 3 [place] 00 :00 (three) Medical times Branch daily as needed for Pain (scale 4-6). methylPREDN 2019-08- No [id number] Take by [facility] 09-29 mouth ity of (MEDROL, 00:00: 00:00 SEE-INSTRU [place] DIANA,) 4 mg 00 :00 CTIONS. Medica l tablets follow Branch package directions azithromyci 2019-08- No [id number] 250mg Take 1 [facility] n 09-29 tablet by ity of (ZITHROMAX) 00:00: 00:00 mouth [place] 250 mg 00 :00 daily. Medical tablet Take 500 Branch mg day 1, then 250 mg days 2 to 5. methylPREDN 2019-08- No [id number] Take by [facility] 09-29 mouth ity of (MEDROL, 00:00: 00:00 SEE-INSTRU [place] DIANA,) 4 mg 00 :00 CTIONS. Medica l tablets follow Branch package directions azithromyci 2019-08- No [id number] 250mg Take 1 [facility] n 09-29 tablet by ity of (ZITHROMAX) 00:00: 00:00 mouth [place] 250 mg 00 :00 daily. Medical tablet Take 500 Branch mg day 1, then 250 mg days 2 to 5. aspirin 2020-0 Yes 81mg Take 81 mg [facility] ers (ADULT LOW 6-19 by mouth ity o f DOSE 14:16: daily. [place] ASPIRIN) 81 38 Medical mg EC Branch tablet aspirin 2020-0 Yes 81mg Take 81 mg Univ ers (ADULT LOW 6-19 by mouth ity o f DOSE 14:16: daily. [place] ASPIRIN) 81 38 Medical mg EC Branch tablet aspirin 2020-0 Yes 81mg Take 81 mg Univ ers (ADULT LOW 6-19 by mouth ity o f DOSE 14:16: daily. [place] ASPIRIN) 81 38 Medical mg EC Branch tablet aspirin 2020-0 Yes 81mg Take 81 mg [facility] ers (ADULT LOW 6-19 by mouth ity o f DOSE 14:16: daily. [place] ASPIRIN) 81 38 Medical mg EC Branch tablet aspirin 2020-0 Yes 81mg Take 81 mg [facility] ers (ADULT LOW 6-19 by mouth ity o f DOSE 14:16: daily. [place] ASPIRIN) 81 38 Medical mg EC Branch tablet aspirin 2020-0 Yes 81mg Take 81 mg [facility] ers (ADULT LOW 6-19 by mouth ity o f DOSE 14:16: daily. [place] ASPIRIN) 81 38 Medical mg EC Branch tablet aspirin 2020-0 Yes 81mg Take 81 mg [facility] ers (ADULT LOW 6-19 by mouth ity o f DOSE 14:16: daily. [place] ASPIRIN) 81 38 Medical mg EC Branch tablet aspirin 2020-0 Yes 81mg Take 81 mg [facility] ers (ADULT LOW 6-19 by mouth ity o f DOSE 14:16: daily. [place] ASPIRIN) 81 38 Medical mg EC Branch tablet aspirin 2020-0 Yes 81mg Take 81 mg [facility] ers (ADULT LOW 6-19 by mouth ity o f DOSE 14:16: daily. [place] ASPIRIN) 81 38 Medical mg EC Branch tablet aspirin 2020-0 Yes 81mg Take 81 mg [facility] ers (ADULT LOW 6-19 by mouth ity o f DOSE 14:16: daily. [place] ASPIRIN) 81 38 Medical mg EC Branch tablet aspirin 2020-0 Yes 81mg Take 81 mg [facility] ers (ADULT LOW 6-19 by mouth ity o f DOSE 14:16: daily. [place] ASPIRIN) 81 38 Medical mg EC Branch tablet aspirin 2020-0 Yes 81mg Take 81 mg [facility] ers (ADULT LOW 6-19 by mouth ity o f DOSE 14:16: daily. [place] ASPIRIN) 81 38 Medical mg EC Branch tablet aspirin 2020-0 Yes 81mg Take 81 mg [facility] ers (ADULT LOW 6-19 by mouth ity o f DOSE 14:16: daily. [place] ASPIRIN) 81 38 Medical mg EC Branch tablet aspirin 2020-0 Yes 81mg Take 81 mg [facility] ers (ADULT LOW 6-19 by mouth ity o f DOSE 14:16: daily. [place] ASPIRIN) 81 38 Medical mg EC Branch tablet aspirin 2020-0 Yes 81mg Take 81 mg [facility] ers (ADULT LOW 6-19 by mouth ity o f DOSE 14:16: daily. [place] ASPIRIN) 81 38 Medical mg EC Branch tablet aspirin 2020-0 Yes 81mg Take 81 mg [facility] ers (ADULT LOW 6-19 by mouth ity o f DOSE 14:16: daily. [place] ASPIRIN) 81 38 Medical mg EC Branch tablet aspirin 2020-0 Yes 81mg Take 81 mg [facility] ers (ADULT LOW 6-19 by mouth ity o f DOSE 14:16: daily. [place] ASPIRIN) 81 38 Medical mg EC Branch tablet aspirin 2020-0 Yes 81mg Take 81 mg [facility] ers (ADULT LOW 6-19 by mouth ity o f DOSE 14:16: daily. [place] ASPIRIN) 81 38 Medical mg EC Branch tablet aspirin 2020-0 Yes 81mg Take 81 mg Univ ers (ADULT LOW 6-19 by mouth ity o f DOSE 14:16: daily. [place] ASPIRIN) 81 38 Medical mg EC Branch tablet aspirin 2020-0 Yes 81mg Take 81 mg Univ ers (ADULT LOW 6-19 by mouth ity o f DOSE 14:16: daily. [place] ASPIRIN) 81 38 Medical mg EC Branch tablet aspirin 2020-0 Yes 81mg Take 81 mg Univ ers (ADULT LOW 6-19 by mouth ity o f DOSE 14:16: daily. [place] ASPIRIN) 81 38 Medical mg EC Branch tablet aspirin 2020-0 Yes 81mg Take 81 mg Univ ers (ADULT LOW 6-19 by mouth ity o f DOSE 14:16: daily. [place] ASPIRIN) 81 38 Medical mg EC Branch tablet aspirin 2020-0 Yes 81mg Take 81 mg Univ ers (ADULT LOW 6-19 by mouth ity o f DOSE 14:16: daily. [place] ASPIRIN) 81 38 Medical mg EC Branch tablet aspirin 2020-0 Yes 81mg Take 81 mg Univ ers (ADULT LOW 6-19 by mouth ity o f DOSE 14:16: daily. [place] ASPIRIN) 81 38 Medical mg EC Branch tablet aspirin 2020-0 Yes 81mg Take 81 mg Univ ers (ADULT LOW 6-19 by mouth ity o f DOSE 14:16: daily. [place] ASPIRIN) 81 38 Medical mg EC Branch tablet aspirin 2020-0 Yes 81mg Take 81 mg Univ ers (ADULT LOW 6-19 by mouth ity o f DOSE 14:16: daily. [place] ASPIRIN) 81 38 Medical mg EC Branch tablet aspirin 2020-0 Yes 81mg Take 81 mg Univ ers (ADULT LOW 6-19 by mouth ity o f DOSE 14:16: daily. [place] ASPIRIN) 81 38 Medical mg EC Branch tablet aspirin 2020-0 Yes 81mg Take 81 mg Univ ers (ADULT LOW 6-19 by mouth ity o f DOSE 14:16: daily. [place] ASPIRIN) 81 38 Medical mg EC Branch tablet aspirin 2020-0 Yes 81mg Take 81 mg Univ ers (ADULT LOW 6-19 by mouth ity o f DOSE 14:16: daily. [place] ASPIRIN) 81 38 Medical mg EC Branch tablet aspirin 2020-0 Yes 81mg Take 81 mg Univ ers (ADULT LOW 6-19 by mouth ity o f DOSE 14:16: daily. [place] ASPIRIN) 81 38 Medical mg EC Branch tablet aspirin 2020-0 Yes 81mg Take 81 mg Univ ers (ADULT LOW 6-19 by mouth ity o f DOSE 14:16: daily. [place] ASPIRIN) 81 38 Medical mg EC Branch tablet aspirin 2020-0 Yes 81mg Take 81 mg Univ ers (ADULT LOW 6-19 by mouth ity o f DOSE 14:16: daily. [place] ASPIRIN) 81 38 Medical mg EC Branch tablet aspirin 2020-0 Yes 81mg Take 81 mg Univ ers (ADULT LOW 6-19 by mouth ity o f DOSE 14:16: daily. [place] ASPIRIN) 81 38 Medical mg EC Branch tablet aspirin 2020-0 Yes 81mg Take 81 mg Univ ers (ADULT LOW 6-19 by mouth ity o f DOSE 14:16: daily. [place] ASPIRIN) 81 38 Medical mg EC Branch tablet albuterol 2020-0 Yes [id number] 2.5mg Inhale 3 [facility] 2.5 mg /3 6-19 mL every 4 ity of mL (0.083 00:00: (four) [place] %) 00 hours as Medical nebulizer needed for Bran ch solution Wheezing or Shortness of Breath. gabapentin 2020-0 Yes [id number] 100mg Take 1 [facility] 100 mg 6-19 capsule by ity of capsule 00:00: mouth 3 [place] 00 (three) Medical times Branch daily as needed for Pain (scale 4-6). ipratropium 2020-0 Yes [id number] .5mg Inhale 2.5 [facility] 0.02 % 6-19 mL every 6 ity of nebulizer 00:00: (six) [place] solution 00 hours as Medical needed for Branch Wheezing or Shortness of Breath. lisinopril 2020-0 Yes [id number] 5mg Take 1 [facility] n[facility] 5 mg tablet 6-19 tablet by ity of 00:00: mouth [place] 00 daily. Medical Branch metFORMIN 2020-0 Yes [id number] 500mg Take 1 [facility] 500 mg 6-19 tablet by [facility] tablet 00:00: mouth [place] 00 daily. [facility] montelukast 2020-0 Yes [id number] 10mg Take 1 [facility] 10 mg 6-19 tablet by [facility] tablet 00:00: mouth [place] 00 daily. [facility] albuterol 2020-0 Yes [id number] 2.5mg Inhale 3 [facility] 2.5 mg /3 6-19 mL every 4 [facility] mL (0.083 00:00: (four) [place] %) 00 hours as Medical nebulizer needed for Bran [facility] solution Wheezing or Shortness of Breath. gabapentin 2020-0 Yes [id number] 100mg Take 1 [facility] 100 mg 6-19 capsule by [facility] capsule 00:00: mouth 3 [place] 00 (three) Medical times Branch daily as needed for Pain (scale 4-6). ipratropium 2020-0 Yes [id number] .5mg Inhale 2.5 [facility] 0.02 % 6-19 mL every 6 [facility] of nebulizer 00:00: (six) [place] solution 00 hours as Medical needed for Branch Wheezing or Shortness of Breath. lisinopril 2020-0 Yes [id number] 5mg Take 1 [facility] 5 mg tablet 6-19 tablet by [facility] of 00:00: mouth [place] 00 daily. [facility] metFORMIN 2020-0 Yes [id number] 500mg Take 1 [facility] 500 mg 6-19 tablet by [facility] tablet 00:00: mouth [place] 00 daily. [facility] montelukast 2020-0 Yes [id number] 10mg Take 1 [facility] 10 mg 6-19 tablet by [facility] tablet 00:00: mouth [place] 00 daily. [facility] albuterol 2020-0 Yes [id number] 2.5mg Inhale 3 [facility] 2.5 mg /3 6-19 mL every 4 [facility] mL (0.083 00:00: (four) [place] %) 00 hours as Medical nebulizer needed for Bran [facility] solution Wheezing or Shortness of Breath. gabapentin 2020-0 Yes [id number] 100mg Take 1 [facility] 100 mg 6-19 capsule by [facility] capsule 00:00: mouth 3 [place] 00 (three) Medical times Branch daily as needed for Pain (scale 4-6). ipratropium 2020-0 Yes [id number] .5mg Inhale 2.5 [facility] 0.02 % 6-19 mL every 6 [facility] of nebulizer 00:00: (six) [place] solution 00 hours as Medical needed for Branch Wheezing or Shortness of Breath. lisinopril 2020-0 Yes [id number] 5mg Take 1 [facility] 5 mg tablet 6-19 tablet by [facility] of 00:00: mouth [place] 00 daily. [facility] metFORMIN 2020-0 Yes [id number] 500mg Take 1 [facility] 500 mg 6-19 tablet by [facility] tablet 00:00: mouth [place] 00 daily. [facility] montelukast 2020-0 Yes [id number] 10mg Take 1 [facility] 10 mg 6-19 tablet by [facility] tablet 00:00: mouth [place] 00 daily. [facility] albuterol 2020-0 Yes [id number] 2.5mg Inhale 3 [facility] 2.5 mg /3 6-19 mL every 4 [facility] mL (0.083 00:00: (four) [place] %) 00 hours as Medical nebulizer needed for Bran [facility] solution Wheezing or Shortness of Breath. gabapentin 2020-0 Yes [id number] 100mg Take 1 [facility] 100 mg 6-19 capsule by [facility] capsule 00:00: mouth 3 [place] 00 (three) Medical times Branch daily as needed for Pain (scale 4-6). ipratropium 2020-0 Yes [id number] .5mg Inhale 2.5 [facility] 0.02 % 6-19 mL every 6 [facility] nebulizer 00:00: (six) [place] solution 00 hours as Medical needed for Branch Wheezing or Shortness of Breath. lisinopril 2020-0 Yes [id number] 5mg Take 1 [facility] 5 mg tablet 6-19 tablet by [facility] of 00:00: mouth [place] 00 daily. [facility] metFORMIN 2020-0 Yes [id number] 500mg Take 1 [facility] 500 mg 6-19 tablet by [facility] tablet 00:00: mouth [place] 00 daily. [facility] montelukast 2020-0 Yes [id number] 10mg Take 1 [facility] 10 mg 6-19 tablet by [facility] tablet 00:00: mouth [place] 00 daily. [facility] albuterol 2020-0 Yes [id number] 2.5mg Inhale 3 [facility] 2.5 mg /3 6-19 mL every 4 [facility] mL (0.083 00:00: (four) [place] %) 00 hours as Medical nebulizer needed for Bran [facility] solution Wheezing or Shortness of Breath. gabapentin 2020-0 Yes [id number] 100mg Take 1 [facility] 100 mg 6-19 capsule by [facility] of capsule 00:00: mouth 3 [place] 00 (three) Medical times Branch daily as needed for Pain (scale 4-6). ipratropium 2020-0 Yes [id number] .5mg Inhale 2.5 [facility] 0.02 % 6-19 mL every 6 [facility] of nebulizer 00:00: (six) [place] solution 00 hours as Medical needed for Branch Wheezing or Shortness of Breath. lisinopril 2020-0 Yes [id number] 5mg Take 1 [facility] 5 mg tablet 6-19 tablet by [facility] of 00:00: mouth [place] 00 daily. [facility] metFORMIN 2020-0 Yes [id number] 500mg Take 1 [facility] 500 mg 6-19 tablet by [facility] tablet 00:00: mouth [place] 00 daily. [facility] montelukast 2020-0 Yes [id number] 10mg Take 1 [facility] 10 mg 6-19 tablet by [facility] tablet 00:00: mouth [place] 00 daily. [facility] albuterol 2020-0 Yes [id number] 2.5mg Inhale 3 [facility] 2.5 mg /3 6-19 mL every 4 [facility] mL (0.083 00:00: (four) [place] %) 00 hours as Medical nebulizer needed for Bran [facility] solution Wheezing or Shortness of Breath. gabapentin 2020-0 Yes [id number] 100mg Take 1 [facility] 100 mg 6-19 capsule by [facility] of capsule 00:00: mouth 3 [place] 00 (three) Medical times Branch daily as needed for Pain (scale 4-6). ipratropium 2020-0 Yes [id number] .5mg Inhale 2.5 [facility] 0.02 % 6-19 mL every 6 [facility] nebulizer 00:00: (six) [place] solution 00 hours as Medical needed for Branch Wheezing or Shortness of Breath. lisinopril 2020-0 Yes [id number] 5mg Take 1 [facility] 5 mg tablet 6-19 tablet by [facility] of 00:00: mouth [place] 00 daily. [facility] metFORMIN 2020-0 Yes [id number] 500mg Take 1 [facility] 500 mg 6-19 tablet by [facility] tablet 00:00: mouth [place] 00 daily. [facility] montelukast 2020-0 Yes [id number] 10mg Take 1 [facility] 10 mg 6-19 tablet by [facility] tablet 00:00: mouth [place] 00 daily. [facility] albuterol 2020-0 Yes [id number] 2.5mg Inhale 3 [facility] 2.5 mg /3 6-19 mL every 4 [facility] mL (0.083 00:00: (four) [place] %) 00 hours as Medical nebulizer needed for Bran [facility] solution Wheezing or Shortness of Breath. gabapentin 2020-0 Yes [id number] 100mg Take 1 [facility] 100 mg 6-19 capsule by [facility] capsule 00:00: mouth 3 [place] 00 (three) Medical times Branch daily as needed for Pain (scale 4-6). ipratropium 2020-0 Yes [id number] .5mg Inhale 2.5 [facility] 0.02 % 6-19 mL every 6 [facility] of nebulizer 00:00: (six) [place] solution 00 hours as Medical needed for Branch Wheezing or Shortness of Breath. lisinopril 2020-0 Yes [id number] 5mg Take 1 [facility] 5 mg tablet 6-19 tablet by [facility] of 00:00: mouth [place] 00 daily. [facility] metFORMIN 2020-0 Yes [id number] 500mg Take 1 [facility] 500 mg 6-19 tablet by [facility] tablet 00:00: mouth [place] 00 daily. [facility] montelukast 2020-0 Yes [id number] 10mg Take 1 [facility] 10 mg 6-19 tablet by [facility] tablet 00:00: mouth [place] 00 daily. [facility] albuterol 2020-0 Yes [id number] 2.5mg Inhale 3 [facility] 2.5 mg /3 6-19 mL every 4 [facility] mL (0.083 00:00: (four) [place] %) 00 hours as Medical nebulizer needed for Bran [facility] solution Wheezing or Shortness of Breath. gabapentin 2020-0 Yes [id number] 100mg Take 1 [facility] 100 mg 6-19 capsule by [facility] capsule 00:00: mouth 3 [place] 00 (three) Medical times Branch daily as needed for Pain (scale 4-6). ipratropium 2020-0 Yes [id number] .5mg Inhale 2.5 [facility] 0.02 % 6-19 mL every 6 [facility] nebulizer 00:00: (six) [place] solution 00 hours as Medical needed for Branch Wheezing or Shortness of Breath. lisinopril 2020-0 Yes [id number] 5mg Take 1 [facility] 5 mg tablet 6-19 tablet by [facility] of 00:00: mouth [place] 00 daily. [facility] metFORMIN 2020-0 Yes [id number] 500mg Take 1 [facility] 500 mg 6-19 tablet by [facility] tablet 00:00: mouth [place] 00 daily. [facility] montelukast 2020-0 Yes [id number] 10mg Take 1 [facility] 10 mg 6-19 tablet by [facility] tablet 00:00: mouth [place] 00 daily. [facility] albuterol 2020-0 Yes [id number] 2.5mg Inhale 3 [facility] 2.5 mg /3 6-19 mL every 4 [facility] mL (0.083 00:00: (four) [place] %) 00 hours as Medical nebulizer needed for Bran [facility] solution Wheezing or Shortness of Breath. ipratropium 2020-0 Yes [id number] .5mg Inhale 2.5 [facility] 0.02 % 6-19 mL every 6 [facility] of nebulizer 00:00: (six) [place] solution 00 hours as Medical needed for Branch Wheezing or Shortness of Breath. lisinopril 2020-0 Yes [id number] 5mg Take 1 [facility] 5 mg tablet 6-19 tablet by [facility] of 00:00: mouth [place] 00 daily. [facility] metFORMIN 2020-0 Yes [id number] 500mg Take 1 [facility] 500 mg 6-19 tablet by [facility] tablet 00:00: mouth [place] 00 daily. [facility] montelukast 2020-0 Yes [id number] 10mg Take 1 [facility] 10 mg 6-19 tablet by [facility] tablet 00:00: mouth [place] 00 daily. [facility] albuterol 2020-0 Yes [id number] 2.5mg Inhale 3 [facility] 2.5 mg /3 6-19 mL every 4 [facility] mL (0.083 00:00: (four) [place] %) 00 hours as Medical nebulizer needed for Bran [facility] solution Wheezing or Shortness of Breath. ipratropium 2020-0 Yes [id number] .5mg Inhale 2.5 [facility] 0.02 % 6-19 mL every 6 [facility] nebulizer 00:00: (six) [place] solution 00 hours as Medical needed for Branch Wheezing or Shortness of Breath. lisinopril 2020-0 Yes [id number] 5mg Take 1 [facility] 5 mg tablet 6-19 tablet by [facility] of 00:00: mouth [place] 00 daily. [facility] metFORMIN 2020-0 Yes [id number] 500mg Take 1 [facility] 500 mg 6-19 tablet by [facility] tablet 00:00: mouth [place] 00 daily. [facility] montelukast 2020-0 Yes [id number] 10mg Take 1 [facility] 10 mg 6-19 tablet by [facility] of tablet 00:00: mouth [place] 00 daily. [facility] albuterol 2020-0 Yes [id number] 2.5mg Inhale 3 [facility] 2.5 mg /3 6-19 mL every 4 [facility] mL (0.083 00:00: (four) [place] %) 00 hours as Medical nebulizer needed for Bran [facility] solution Wheezing or Shortness of Breath. ipratropium 2020-0 Yes [id number] .5mg Inhale 2.5 [facility] 0.02 % 6-19 mL every 6 [facility] of nebulizer 00:00: (six) [place] solution 00 hours as Medical needed for Branch Wheezing or Shortness of Breath. lisinopril 2020-0 Yes [id number] 5mg Take 1 [facility] 5 mg tablet 6-19 tablet by [facility] of 00:00: mouth [place] 00 daily. [facility] metFORMIN 2020-0 Yes [id number] 500mg Take 1 [facility] 500 mg 6-19 tablet by [facility] of tablet 00:00: mouth [place] 00 daily. [facility] montelukast 2020-0 Yes [id number] 10mg Take 1 [facility] 10 mg 6-19 tablet by [facility] of tablet 00:00: mouth [place] 00 daily. [facility] albuterol 2020-0 Yes [id number] 2.5mg Inhale 3 [facility] 2.5 mg /3 6-19 mL every 4 [facility] mL (0.083 00:00: (four) [place] %) 00 hours as Medical nebulizer needed for Bran [facility] solution Wheezing or Shortness of Breath. ipratropium 2020-0 Yes [id number] .5mg Inhale 2.5 [facility] 0.02 % 6-19 mL every 6 [facility] of nebulizer 00:00: (six) [place] solution 00 hours as Medical needed for Branch Wheezing or Shortness of Breath. lisinopril 2020-0 Yes [id number] 5mg Take 1 [facility] 5 mg tablet 6-19 tablet by [facility] of 00:00: mouth [place] 00 daily. [facility] metFORMIN 2020-0 Yes [id number] 500mg Take 1 [facility] 500 mg 6-19 tablet by [facility] of tablet 00:00: mouth [place] 00 daily. [facility] montelukast 2020-0 Yes [id number] 10mg Take 1 [facility] 10 mg 6-19 tablet by [facility] of tablet 00:00: mouth [place] 00 daily. [facility] albuterol 2020-0 Yes [id number] 2.5mg Inhale 3 [facility] 2.5 mg /3 6-19 mL every 4 [facility] mL (0.083 00:00: (four) [place] %) 00 hours as Medical nebulizer needed for Bran [facility] solution Wheezing or Shortness of Breath. ipratropium 2020-0 Yes [id number] .5mg Inhale 2.5 [facility] 0.02 % 6-19 mL every 6 [facility] of nebulizer 00:00: (six) [place] solution 00 hours as Medical needed for Branch Wheezing or Shortness of Breath. lisinopril 2020-0 Yes [id number] 5mg Take 1 [facility] 5 mg tablet 6-19 tablet by [facility] of 00:00: mouth [place] 00 daily. [facility] metFORMIN 2020-0 Yes [id number] 500mg Take 1 [facility] 500 mg 6-19 tablet by [facility] of tablet 00:00: mouth [place] 00 daily. [facility] montelukast 2020-0 Yes [id number] 10mg Take 1 [facility] 10 mg 6-19 tablet by [facility] of tablet 00:00: mouth [place] 00 daily. [facility] albuterol 2020-0 Yes [id number] 2.5mg Inhale 3 [facility] 2.5 mg /3 6-19 mL every 4 [facility] mL (0.083 00:00: (four) [place] %) 00 hours as Medical nebulizer needed for Bran [facility] solution Wheezing or Shortness of Breath. ipratropium 2020-0 Yes [id number] .5mg Inhale 2.5 [facility] 0.02 % 6-19 mL every 6 [facility] of nebulizer 00:00: (six) [place] solution 00 hours as Medical needed for Branch Wheezing or Shortness of Breath. lisinopril 2020-0 Yes [id number] 5mg Take 1 [facility] 5 mg tablet 6-19 tablet by [facility] of 00:00: mouth [place] 00 daily. [facility] metFORMIN 2020-0 Yes [id number] 500mg Take 1 [facility] 500 mg 6-19 tablet by [facility] of tablet 00:00: mouth [place] 00 daily. [facility] montelukast 2020-0 Yes [id number] 10mg Take 1 [facility] 10 mg 6-19 tablet by [facility] of tablet 00:00: mouth [place] 00 daily. [facility] albuterol 2020-0 Yes [id number] 2.5mg Inhale 3 [facility] 2.5 mg /3 6-19 mL every 4 [facility] mL (0.083 00:00: (four) [place] %) 00 hours as Medical nebulizer needed for Bran [facility] solution Wheezing or Shortness of Breath. ipratropium 2020-0 Yes [id number] .5mg Inhale 2.5 [facility] 0.02 % 6-19 mL every 6 [facility] of nebulizer 00:00: (six) [place] solution 00 hours as Medical needed for Branch Wheezing or Shortness of Breath. lisinopril 2020-0 Yes [id number] 5mg Take 1 [facility] 5 mg tablet 6-19 tablet by [facility] of 00:00: mouth [place] 00 daily. [facility] metFORMIN 2020-0 Yes [id number] 500mg Take 1 [facility] 500 mg 6-19 tablet by [facility] of tablet 00:00: mouth [place] 00 daily. [facility] montelukast 2020-0 Yes [id number] 10mg Take 1 [facility] 10 mg 6-19 tablet by [facility] of tablet 00:00: mouth [place] 00 daily. [facility] albuterol 2020-0 Yes [id number] 2.5mg Inhale 3 [facility] 2.5 mg /3 6-19 mL every 4 [facility] mL (0.083 00:00: (four) [place] %) 00 hours as Medical nebulizer needed for Bran [facility] solution Wheezing or Shortness of Breath. ipratropium 2020-0 Yes [id number] .5mg Inhale 2.5 [facility] 0.02 % 6-19 mL every 6 [facility] of nebulizer 00:00: (six) [place] solution 00 hours as Medical needed for Branch Wheezing or Shortness of Breath. lisinopril 2020-0 Yes [id number] 5mg Take 1 [facility] 5 mg tablet 6-19 tablet by [facility] of 00:00: mouth [place] 00 daily. [facility] metFORMIN 2020-0 Yes [id number] 500mg Take 1 [facility] 500 mg 6-19 tablet by [facility] of tablet 00:00: mouth [place] 00 daily. [facility] montelukast 2020-0 Yes [id number] 10mg Take 1 [facility] 10 mg 6-19 tablet by [facility] of tablet 00:00: mouth [place] 00 daily. [facility] albuterol 2020-0 Yes [id number] 2.5mg Inhale 3 [facility] 2.5 mg /3 6-19 mL every 4 [facility] of mL (0.083 00:00: (four) [place] %) 00 hours as Medical nebulizer needed for Bran [facility] solution Wheezing or Shortness of Breath. ipratropium 2020-0 Yes [id number] .5mg Inhale 2.5 [facility] 0.02 % 6-19 mL every 6 [facility] of nebulizer 00:00: (six) [place] solution 00 hours as Medical needed for Branch Wheezing or Shortness of Breath. lisinopril 2020-0 Yes [id number] 5mg Take 1 [facility] 5 mg tablet 6-19 tablet by [facility] of 00:00: mouth [place] 00 daily. [facility] metFORMIN 2020-0 Yes [id number] 500mg Take 1 [facility] 500 mg 6-19 tablet by [facility] of tablet 00:00: mouth [place] 00 daily. [facility] montelukast 2020-0 Yes [id number] 10mg Take 1 [facility] 10 mg 6-19 tablet by [facility] of tablet 00:00: mouth [place] 00 daily. [facility] albuterol 2020-0 Yes [id number] 2.5mg Inhale 3 [facility] 2.5 mg /3 6-19 mL every 4 [facility] of mL (0.083 00:00: (four) [place] %) 00 hours as Medical nebulizer needed for Bran [facility] solution Wheezing or Shortness of Breath. ipratropium 2020-0 Yes [id number] .5mg Inhale 2.5 [facility] 0.02 % 6-19 mL every 6 [facility] of nebulizer 00:00: (six) [place] solution 00 hours as Medical needed for Branch Wheezing or Shortness of Breath. lisinopril 2020-0 Yes [id number] 5mg Take 1 [facility] 5 mg tablet 6-19 tablet by [facility] of 00:00: mouth [place] 00 daily. [facility] metFORMIN 2020-0 Yes [id number] 500mg Take 1 [facility] 500 mg 6-19 tablet by [facility] of tablet 00:00: mouth [place] 00 daily. [facility] montelukast 2020-0 Yes [id number] 10mg Take 1 [facility] 10 mg 6-19 tablet by [facility] of tablet 00:00: mouth [place] 00 daily. [facility] albuterol 2020-0 Yes [id number] 2.5mg Inhale 3 [facility] 2.5 mg /3 6-19 mL every 4 [facility] of mL (0.083 00:00: (four) [place] %) 00 hours as Medical nebulizer needed for Bran [facility] solution Wheezing or Shortness of Breath. ipratropium 2020-0 Yes [id number] .5mg Inhale 2.5 [facility] 0.02 % 6-19 mL every 6 [facility] of nebulizer 00:00: (six) [place] solution 00 hours as Medical needed for Branch Wheezing or Shortness of Breath. lisinopril 2020-0 Yes [id number] 5mg Take 1 [facility] 5 mg tablet 6-19 tablet by [facility] of 00:00: mouth [place] 00 daily. [facility] metFORMIN 2020-0 Yes [id number] 500mg Take 1 [facility] 500 mg 6-19 tablet by [facility] of tablet 00:00: mouth [place] 00 daily. [facility] montelukast 2020-0 Yes [id number] 10mg Take 1 [facility] 10 mg 6-19 tablet by [facility] of tablet 00:00: mouth [place] 00 daily. [facility] albuterol 2020-0 Yes [id number] 2.5mg Inhale 3 [facility] 2.5 mg /3 6-19 mL every 4 [facility] of mL (0.083 00:00: (four) [place] %) 00 hours as Medical nebulizer needed for Bran ch solution Wheezing or Shortness of Breath. ipratropium 2020-0 Yes [id number] .5mg Inhale 2.5 [facility] 0.02 % 6-19 mL every 6 [facility] of nebulizer 00:00: (six) [place] solution 00 hours as Medical needed for Branch Wheezing or Shortness of Breath. lisinopril 2020-0 Yes [id number] 5mg Take 1 [facility] 5 mg tablet 6-19 tablet by [facility] of 00:00: mouth [place] 00 daily. [facility] metFORMIN 2020-0 Yes [id number] 500mg Take 1 [facility] 500 mg 6-19 tablet by [facility] of tablet 00:00: mouth [place] 00 daily. [facility] montelukast 2020-0 Yes [id number] 10mg Take 1 [facility] 10 mg 6-19 tablet by [facility] of tablet 00:00: mouth [place] 00 daily. [facility] albuterol 2020-0 Yes [id number] 2.5mg Inhale 3 [facility] 2.5 mg /3 6-19 mL every 4 [facility] of mL (0.083 00:00: (four) [place] %) 00 hours as Medical nebulizer needed for Bran ch solution Wheezing or Shortness of Breath. ipratropium 2020-0 Yes [id number] .5mg Inhale 2.5 [facility] 0.02 % 6-19 mL every 6 [facility] of nebulizer 00:00: (six) [place] solution 00 hours as Medical needed for Branch Wheezing or Shortness of Breath. albuterol 2020-0 Yes [id number] 2.5mg Inhale 3 [facility] 2.5 mg /3 6-19 mL every 4 [facility] of mL (0.083 00:00: (four) [place] %) 00 hours as Medical nebulizer needed for Bran ch solution Wheezing or Shortness of Breath. ipratropium 2020-0 Yes [id number] .5mg Inhale 2.5 [facility] 0.02 % 6-19 mL every 6 [facility] of nebulizer 00:00: (six) [place] solution 00 hours as Medical needed for Branch Wheezing or Shortness of Breath. albuterol 2020-0 Yes [id number] 2.5mg Inhale 3 [facility] 2.5 mg /3 6-19 mL every 4 [facility] of mL (0.083 00:00: (four) [place] %) 00 hours as Medical nebulizer needed for Bran ch solution Wheezing or Shortness of Breath. ipratropium 2020-0 Yes [id number] .5mg Inhale 2.5 [facility] 0.02 % 6-19 mL every 6 [facility]y of nebulizer 00:00: (six) [place] solution 00 hours as Medical needed for Branch Wheezing or Shortness of Breath. albuterol 2020-0 Yes [id number] 2.5mg Inhale 3 [facility] 2.5 mg /3 6-19 mL every 4 [facility] of mL (0.083 00:00: (four) [place] %) 00 hours as Medical nebulizer needed for Bran ch solution Wheezing or Shortness of Breath. ipratropium 2020-0 Yes [id number] .5mg Inhale 2.5 [facility] 0.02 % 6-19 mL every 6 ity of nebulizer 00:00: (six) [place] solution 00 hours as Medical needed for Branch Wheezing or Shortness of Breath. albuterol 2020-0 Yes [id number] 2.5mg Inhale 3 [facility] 2.5 mg /3 6-19 mL every 4 [facility] of mL (0.083 00:00: (four) [place] %) 00 hours as Medical nebulizer needed for Bran ch solution Wheezing or Shortness of Breath. ipratropium 2020-0 Yes [id number] .5mg Inhale 2.5 [facility] 0.02 % 6-19 mL every 6 ity of nebulizer 00:00: (six) [place] solution 00 hours as Medical needed for Branch Wheezing or Shortness of Breath. albuterol 2019-2020- No [id number] 2.5mg Inhale 3 [facility] 2.5 mg /3 6-19 06-24 mL every 4 [facility] of mL (0.083 00:00: 00:00 (four) [place] %) 00 :00 hours as Medical nebulizer needed for Bran ch solution Wheezing or Shortness of Breath. ipratropium 2019-0 2020- No [id number] .5mg Inhale 2.5 [facility] 0.02 % 6-19 06-24 mL every 6 ity of nebulizer 00:00: 00:00 (six) [place] solution 00 :00 hours as Medical needed for Branch Wheezing or Shortness of Breath. albuterol 2019-2020- No [id number] 2.5mg Inhale 3 [facility] 2.5 mg /3 6-19 06-24 mL every 4 [facility] of mL (0.083 00:00: 00:00 (four) [place] %) 00 :00 hours as Medical nebulizer needed for Bran ch solution Wheezing or Shortness of Breath. ipratropium 2019-2020- No [id number] .5mg Inhale 2.5 [facility] 0.02 % 6-19 06-24 mL every 6 ity of nebulizer 00:00: 00:00 (six) [place] solution 00 :00 hours as Medical needed for Branch Wheezing or Shortness of Breath. lisinopril 2020- No [id number] 5mg Take 1 [facility] 5 mg tablet 6-19 05-14 tablet by it y of 00:00: 00:00 mouth [place] 00 :00 daily. [facility] metFORMIN 2020- No [id number] 500mg Take 1 [facility] 500 mg 6-19 05-14 tablet by [facility] of tablet 00:00: 00:00 mouth [place] 00 :00 daily. [facility] montelukast 2020- No [id number] 10mg Take 1 [facility] 10 mg 6-19 05-14 tablet by [facility] of tablet 00:00: 00:00 mouth [place] 00 :00 daily. [facility] lisinopril 0 2020- No [id number] 5mg Take 1 [facility] 5 mg tablet -11 01-14 tablet by it y of 00:00: 00:00 mouth [place] 00 :00 daily. [facility] metFORMIN 0 2020- No [id number] 500mg Take 1 [facility] 500 mg -11 01-14 tablet by [facility] of tablet 00:00: 00:00 mouth [place] 00 :00 daily. [facility] montelukast 0 2020- No [id number] 10mg Take 1 [facility] 10 mg -11 01-14 tablet by [facility] of tablet 00:00: 00:00 mouth [place] 00 :00 daily. [facility] gabapentin 2019- No [id number] 100mg Take 1 [facility] 100 mg - 12-04 capsule by it[facility] of capsule 00:00: 00:00 mouth 3 [place] 00 :00 (three) Medical times Branch daily as needed for Pain (scale 4-6). gabapentin 2019- No [id number] 100mg Take 1 [facility] 100 mg - 12-04 capsule by it[facility] of capsule 00:00: 00:00 mouth 3 [place] 00 :00 (three) Medical times Branch daily as needed for Pain (scale 4-6). METFORMIN 2019-0 Yes [id number] 500mg TAKE 1 [facility] 500 mg 3-17 TABLET BY ity of tablet 00:00: MOUTH [place] 00 DAILY Medical Branch LISINOPRIL 2019-0 Yes [id number] 5mg TAKE 1 [facility] 5 mg tablet 3-17 TABLET BY ity of 00:00: MOUTH [place] 00 DAILY Medical Branch MONTELUKAST 2019-0 Yes [id number] 10mg TAKE 1 [facility] 10 mg 3-17 TABLET BY ity of tablet 00:00: MOUTH [place] 00 DAILY [facility] Branch METFORMIN 2020-0 Yes [id number] 500mg TAKE 1 [facility] 500 mg 3-17 TABLET BY ity of tablet 00:00: MOUTH [place] 00 DAILY [facility] LISINOPRIL 2020-0 Yes [id number] 5mg TAKE 1 [facility] 5 mg tablet 3-17 TABLET BY ity of 00:00: MOUTH [place] 00 DAILY [facility] Branch MONTELUKAST 2020-0 Yes [id number] 10mg TAKE 1 [facility] 10 mg 3-17 TABLET BY ity of tablet 00:00: MOUTH [place] DAILY [facility] Branch METFORMIN 2020-0 Yes [id number] 500mg TAKE 1 [facility] 500 mg 3-17 TABLET BY ity of tablet 00:00: [facility] DAILY Medical Branch LISINOPRIL 2020-0 Yes [id number] 5mg TAKE 1 [facility] nivers 5 mg tablet 3-17 TABLET BY ity of 00:00: [facility] DAILY Medical Branch MONTELUKAST 2020-0 Yes [id number] 10mg TAKE 1 [facility] 10 mg 3-17 TABLET BY ity of tablet 00:00: [facility] DAILY Medical Branch METFORMIN 2020-0 Yes [id number] 500mg TAKE 1 [facility] 500 mg 3-17 TABLET BY ity of tablet 00:00: [facility] DAILY Medical Branch LISINOPRIL 2020-0 Yes [id number] 5mg TAKE 1 [facility] nivers 5 mg tablet 3-17 TABLET BY ity of 00:00: [facility] DAILY Medical Branch MONTELUKAST 2020-0 Yes [id number] 10mg TAKE 1 [facility] 10 mg 3-17 TABLET BY ity of tablet 00:00: [facility] DAILY Medical Branch METFORMIN 2020-0 2020- No [id number] 500mg TAKE 1 [facility] 500 mg 3-17 -19 TABLET BY ity of tablet 00:00: 00:00 [facility] 00 :00 DAILY Medical Branch LISINOPRIL 2020-0 2020- No [id number] 5mg TAKE 1 [facility] 5 mg tablet 3-17 -19 TABLET BY it y of 00:00: 00:00 [facility] 00 :00 DAILY Medical Branch MONTELUKAST 2020-0 2020- No [id number] 10mg TAKE 1 [facility] 10 mg 3-17 06-19 TABLET BY ity of tablet 00:00: 00:00 [facility] 00 :00 DAILY Medical Branch METFORMIN 2020-0 2020- No [id number] 500mg TAKE 1 [facility] 500 mg 3-17 06-19 TABLET BY ity of tablet 00:00: 00:00 [facility] 00 :00 DAILY Medical Branch LISINOPRIL 2020-0 2020- No [id number] 5mg TAKE 1 [facility] 5 mg tablet 3-17 06-19 TABLET BY it y of 00:00: 00:00 [facility] 00 :00 DAILY Medical Branch MONTELUKAST 2020-0 2020- No [id number] 10mg TAKE 1 [facility] 10 mg 3-17 06-19 TABLET BY ity of tablet 00:00: 00:00 MOUTH [place] 00 :00 DAILY Medical Branch aspirin 2020-0 Yes 81mg Take 81 mg [facility] (ADULT LOW 1-03 by mouth ity o f DOSE 17:12: daily. [place] ASPIRIN) 81 36 Medical mg [facility] Branch tablet aspirin 2020-0 Yes 81mg Take 81 mg [facility] (ADULT LOW 1-03 by mouth ity o f DOSE 17:12: daily. [place] ASPIRIN) 81 36 Medical mg [facility] tablet aspirin 2020-0 Yes 81mg Take 81 mg [facility] ers (ADULT LOW 1-03 by mouth ity o f DOSE 17:12: daily. [place] ASPIRIN) 81 36 Medical mg [facility] Branch tablet aspirin 2020-0 Yes 81mg Take 81 mg [facility] ers (ADULT LOW 1-03 by mouth ity o f DOSE 17:12: daily. [place] ASPIRIN) 81 36 Medical mg [facility] tablet aspirin 2020-0 Yes 81mg Take 81 mg [facility] ers (ADULT LOW 1-03 by mouth ity o f DOSE 17:12: daily. [place] ASPIRIN) 81 36 Medical mg EC Branch tablet aspirin 2020-0 Yes 81mg Take 81 mg [facility] ers (ADULT LOW 1-03 by mouth ity o f DOSE 17:12: daily. [place] ASPIRIN) 81 36 Medical mg EC [facility] tablet promethazin 2018-08 Yes [id number] 5mL Take 5 mL Univers e-dextromet 2-16 by mouth 4 it y of horphan 00:00: (four) [place] 6.25-15 00 times Medical mg/5 mL daily as Branch syrup needed for Cough. promethazin 2018-08 Yes [id number] 5mL Take 5 mL [facility] e-dextromet 2-16 by mouth 4 it y of horphan 00:00: (four) [place] 6.25-15 00 times Medical mg/5 mL daily as Branch syrup needed for Cough. promethazin 2018-08 Yes [id number] 5mL Take 5 mL [facility] e-dextromet 2-16 by mouth 4 it y of horphan 00:00: (four) [place] 6.25-15 00 times Medical mg/5 mL daily as Branch syrup needed for Cough. promethazin 2018-08 Yes [id number] 5mL Take 5 mL [facility] e-dextromet 2-16 by mouth 4 it y of horphan 00:00: (four) [place] 6.25-15 00 times Medical mg/5 mL daily as Branch syrup needed for Cough. promethazin 2018-08 Yes [id number] 5mL Take 5 mL [facility] e-dextromet 2-16 by mouth 4 it y of horphan 00:00: (four) [place] 6.25-15 00 times Medical mg/5 mL daily as Branch syrup needed for Cough. promethazin 2018-08 Yes [id number] 5mL Take 5 mL [facility] e-dextromet 2-16 by mouth 4 it y of horphan 00:00: (four) [place] 6.25-15 00 times Medical mg/5 mL daily as Branch syrup needed for Cough. promethazin 2018-08 2020- No [id number] 5mL Take 5 mL [facility] e-dextromet 2-16 06-19 by mouth 4 i ty of horphan 00:00: 00:00 (four) [place] 6.25-15 00 :00 times Medical mg/5 mL daily as Branch syrup needed for Cough. promethazin 2018-08 2020- No [id number] 5mL Take 5 mL [facility] e-dextromet 2-16 06-19 by mouth 4 i ty of horphan 00:00: 00:00 (four) [place] 6.25-15 00 :00 times Medical mg/5 mL daily as Branch syrup needed for Cough. gabapentin 2018-08 Yes [id number] 100mg Take 1 [facility] 100 mg 1-25 capsule by ity of capsule 00:00: mouth 3 00 (three) Medical times Branch daily as needed for Pain (scale 4-6). gabapentin 2018-08 Yes [id number] 100mg Take 1 [facility] 100 mg 1-25 capsule by ity of capsule 00:00: mouth 3 [place] 00 (three) Medical times Branch daily as needed for Pain (scale 4-6). gabapentin 2018-08 Yes [id number] 100mg Take 1 [facility] 100 mg 1-25 capsule by ity of capsule 00:00: mouth 3 [place] 00 (three) Medical times Branch daily as needed for Pain (scale 4-6). gabapentin 2018-08 Yes [id number] 100mg Take 1 [facility] 100 mg 1-25 capsule by ity of capsule 00:00: mouth 3 [place] 00 (three) Medical times Branch daily as needed for Pain (scale 4-6). gabapentin 2018-08 Yes [id number] 100mg Take 1 [facility] 100 mg 1-25 capsule by ity of capsule 00:00: mouth 3 [place] 00 (three) Medical times Branch daily as needed for Pain (scale 4-6). gabapentin 2018-08 Yes [id number] 100mg Take 1 [facility] 100 mg 1-25 capsule by ity of capsule 00:00: mouth 3 [place] 00 (three) Medical times Branch daily as needed for Pain (scale 4-6). gabapentin 2018-08 2020- No [id number] 100mg Take 1 [facility] 100 mg 1-25 06-19 capsule by ity of capsule 00:00: 00:00 mouth 3 [place] 00 :00 (three) Medical times Branch daily as needed for Pain (scale 4-6). gabapentin 2018-08 2020- No [id number] 100mg Take 1 [facility] 100 mg 1-25 06-19 capsule by ity of capsule 00:00: 00:00 mouth 3 [place] 00 :00 (three) Medical times Branch daily as needed for Pain (scale 4-6). lisinopril 2018-08 Yes [id number] 5mg Take 1 U n[facility] 5 mg tablet 0-03 tablet by ity of 00:00: mouth [place] 00 daily. Medical Branch metFORMIN 2018-08 Yes [id number] 500mg Take 1 [facility] 500 mg 0-03 tablet by ity of tablet 00:00: mouth [place] 00 daily. Medical Branch montelukast 2018-08 Yes [id number] 10mg Take 1 Univers (SINGULAIR) 0-03 tablet by ity of 10 mg 00:00: mouth [place] tablet 00 daily. Medical Branch lisinopril 2018-08 Yes [id number] 5mg Take 1 [facility] n[facility] 5 mg tablet 0-03 tablet by ity of 00:00: mouth [place] 00 daily. Medical Branch metFORMIN 2018-08 Yes [id number] 500mg Take 1 [facility] 500 mg 0-03 tablet by ity of tablet 00:00: mouth [place] 00 daily. Medical Branch montelukast 2018-08 Yes [id number] 10mg Take 1 Univers (SINGULAIR) 0-03 tablet by ity of 10 mg 00:00: mouth [place] tablet 00 daily. Medical Branch lisinopril 2018-08 2020- No [id number] 5mg Take 1 Univers 5 mg tablet 0-03 03-17 tablet by it y of 00:00: 00:00 mouth [place] 00 :00 daily. Medical Branch metFORMIN 2018-08 2020- No [id number] 500mg Take 1 [facility] 500 mg 0-03 03-17 tablet by ity of tablet 00:00: 00:00 mouth [place] 00 :00 daily. Medical Branch montelumarianelast 2018-08 2020- No [id number] 10mg Take 1 Univers (SINGULAIR) 0-03 03-17 tablet by it y of 10 mg 00:00: 00:00 mouth [place] tablet 00 :00 daily. Medical Branch doxycycline 2018- 2019- No [id number] 100mg Take 1 [facility] 100 mg 03-31 [id number] capsule by ity of capsule 00:00: 04:59 mouth [place] 00 :00 every 12 Medical (twelve) Branch hours for 5 days. doxycycline 2018- 2019- No [id number] 100mg Take 1 [facility] 100 mg 03-31 [id number] capsule by ity of capsule 00:00: 04:59 mouth [place] 00 :00 every 12 Medical (twelve) Branch hours for 5 days. tiZANidine 2019-0 Yes 4mg Take 4 mg [facility] [place] 4 mg 7-03 by mouth 3 ity of capsule 14:46: (three) [place] 09 times Medical daily as Branch needed for Muscle Spasms. aspirin 2019-0 Yes 81mg Take 81 mg [facility] (ADULT LOW 7-03 by mouth ity o f DOSE 14:46: daily. [place] ASPIRIN) 81 09 Medical mg [facility] tablet tiZANidine 2019-0 Yes 4mg Take 4 mg [facility] [place] 4 mg 7-03 by mouth 3 ity of capsule 14:46: (three) [place] 09 times Medical daily as Branch needed for Muscle Spasms. aspirin 2019-0 Yes 81mg Take 81 mg [facility] (ADULT LOW 7-03 by mouth ity o f DOSE 14:46: daily. [place] ASPIRIN) 81 09 Medical mg [facility] tablet tiZANidine 2019-0 Yes 4mg Take 4 mg [facility] [place] 4 mg 7-03 by mouth 3 ity of capsule 14:46: (three) [place] 09 times Medical daily as Branch needed for Muscle Spasms. aspirin 2019-0 Yes 81mg Take 81 mg [facility] (ADULT LOW 7-03 by mouth ity o f DOSE 14:46: daily. [place] ASPIRIN) 81 09 Medical mg [facility] tablet tiZANidine 2019-0 Yes 4mg Take 4 mg [facility] [place] 4 mg 7-03 by mouth 3 ity of capsule 14:46: (three) [place] 09 times Medical daily as Branch needed for Muscle Spasms. aspirin 2019-0 Yes 81mg Take 81 mg [facility] (ADULT LOW 7-03 by mouth ity o f DOSE 14:46: daily. [place] ASPIRIN) 81 09 Medical mg [facility] tablet albuterol 2019-0 Yes [id number] 2.5mg Inhale 3 Univers 2.5 mg /3 7-03 mL every 4 ity of mL (0.083 00:00: (four) [place] %) 00 hours as Medical nebulizer needed for Bran ch solution Wheezing or Shortness of Breath. ipratropium 2019-0 Yes [id number] .5mg Inhale 2.5 Univers 0.02 % 7-03 mL every 6 ity of nebulizer 00:00: (six) [place] solution 00 hours as Medical needed for Branch Wheezing or Shortness of Breath. montelukast 2018- Yes [id number] 10mg Take 1 Univers (SINGULAIR) 7-03 tablet by ity of 10 mg 00:00: mouth [place] tablet 00 daily. Medical Branch albuterol 2018-0 Yes [id number] 2.5mg Inhale 3 Univers 2.5 mg /3 7-03 mL every 4 ity of mL (0.083 00:00: (four) [place] %) 00 hours as Medical nebulizer needed for Bran ch solution Wheezing or Shortness of Breath. ipratropium 2018-0 Yes [id number] .5mg Inhale 2.5 Univers 0.02 % 7-03 mL every 6 ity of nebulizer 00:00: (six) [place] solution 00 hours as Medical needed for Branch Wheezing or Shortness of Breath. albuterol 2018-0 Yes [id number] 2.5mg Inhale 3 Univers 2.5 mg /3 7-03 mL every 4 ity of mL (0.083 00:00: (four) [place] %) 00 hours as Medical nebulizer needed for Bran ch solution Wheezing or Shortness of Breath. ipratropium 2018-0 Yes [id number] .5mg Inhale 2.5 Univers 0.02 % 7-03 mL every 6 ity of nebulizer 00:00: (six) [place] solution 00 hours as Medical needed for Branch Wheezing or Shortness of Breath. albuterol 2018-0 Yes [id number] 2.5mg Inhale 3 Univers 2.5 mg /3 7-03 mL every 4 ity of mL (0.083 00:00: (four) [place] %) 00 hours as Medical nebulizer needed for Bran ch solution Wheezing or Shortness of Breath. ipratropium 2019-0 Yes [id number] .5mg Inhale 2.5 Univers 0.02 % 7-03 mL every 6 ity of nebulizer 00:00: (six) [place] solution 00 hours as Medical needed for Branch Wheezing or Shortness of Breath. albuterol 2019-0 Yes [id number] 2.5mg Inhale 3 Univers 2.5 mg /3 7-03 mL every 4 ity of mL (0.083 00:00: (four) [place] %) 00 hours as Medical nebulizer needed for Bran ch solution Wheezing or Shortness of Breath. ipratropium 2019-0 Yes [id number] .5mg Inhale 2.5 Univers 0.02 % 7-03 mL every 6 ity of nebulizer 00:00: (six) [place] solution 00 hours as Medical needed for Branch Wheezing or Shortness of Breath. albuterol 2019-0 Yes [id number] 2.5mg Inhale 3 Univers 2.5 mg /3 7-03 mL every 4 ity of mL (0.083 00:00: (four) [place] %) 00 hours as Medical nebulizer needed for Bran ch solution Wheezing or Shortness of Breath. ipratropium 2019-0 Yes [id number] .5mg Inhale 2.5 Univers 0.02 % 7-03 mL every 6 ity of nebulizer 00:00: (six) [place] solution 00 hours as Medical needed for Branch Wheezing or Shortness of Breath. albuterol 2019-0 Yes [id number] 2.5mg Inhale 3 Univers 2.5 mg /3 7-03 mL every 4 ity of mL (0.083 00:00: (four) [place] %) 00 hours as Medical nebulizer needed for Bran ch solution Wheezing or Shortness of Breath. ipratropium 2019-0 Yes [id number] .5mg Inhale 2.5 Univers 0.02 % 7-03 mL every 6 ity of nebulizer 00:00: (six) [place] solution 00 hours as Medical needed for Branch Wheezing or Shortness of Breath. albuterol 2019-0 Yes [id number] 2.5mg Inhale 3 Univers 2.5 mg /3 7-03 mL every 4 ity of mL (0.083 00:00: (four) [place] %) 00 hours as Medical nebulizer needed for Bran ch solution Wheezing or Shortness of Breath. ipratropium 2019-0 Yes [id number] .5mg Inhale 2.5 Univers 0.02 % 7-03 mL every 6 ity of nebulizer 00:00: (six) [place] solution 00 hours as Medical needed for Branch Wheezing or Shortness of Breath. montelukast 2019-0 Yes [id number] 10mg Take 1 Univers (SINGULAIR) 7-03 tablet by ity of 10 mg 00:00: mouth [place] tablet 00 daily. Medical Branch albuterol 2019-0 Yes [id number] 2.5mg Inhale 3 Univers 2.5 mg /3 7-03 mL every 4 ity of mL (0.083 00:00: (four) [place] %) 00 hours as Medical nebulizer needed for Bran ch solution Wheezing or Shortness of Breath. ipratropium 2019-0 Yes [id number] .5mg Inhale 2.5 Univers 0.02 % 7-03 mL every 6 ity of nebulizer 00:00: (six) [place] solution 00 hours as Medical needed for Branch Wheezing or Shortness of Breath. montelukast 2019-0 Yes [id number] 10mg Take 1 Univers (SINGULAIR) 7-03 tablet by ity of 10 mg 00:00: mouth [place] tablet 00 daily. Medical Branch albuterol 2019-0 Yes [id number] 2.5mg Inhale 3 Univers 2.5 mg /3 7-03 mL every 4 ity of mL (0.083 00:00: (four) [place] %) 00 hours as Medical nebulizer needed for Bran ch solution Wheezing or Shortness of Breath. ipratropium 2019-0 Yes [id number] .5mg Inhale 2.5 Univers 0.02 % 7-03 mL every 6 ity of nebulizer 00:00: (six) [place] solution 00 hours as Medical needed for Branch Wheezing or Shortness of Breath. montelukast 2019-0 Yes [id number] 10mg Take 1 Univers (SINGULAIR) 7-03 tablet by ity of 10 mg 00:00: mouth [place] tablet 00 daily. Medical Branch albuterol 2019-0 2020- No [id number] 2.5mg Inhale 3 Univers 2.5 mg /3 7- 06-19 mL every 4 ity of mL (0.083 00:00: 00:00 (four) [place] %) 00 :00 hours as Medical nebulizer needed for Bran ch solution Wheezing or Shortness of Breath. ipratropium 2018- 2020- No [id number] .5mg Inhale 2.5 Univers 0.02 % 7- 06-19 mL every 6 ity of nebulizer 00:00: 00:00 (six) [place] solution 00 :00 hours as Medical needed for Branch Wheezing or Shortness of Breath. albuterol 2018- 2020- No [id number] 2.5mg Inhale 3 Univers 2.5 mg /3 7- 06-19 mL every 4 ity of mL (0.083 00:00: 00:00 (four) [place] %) 00 :00 hours as Medical nebulizer needed for Bran ch solution Wheezing or Shortness of Breath. ipratropium 2018- 2020- No [id number] .5mg Inhale 2.5 Univers 0.02 % 02-25 06-19 mL every 6 ity of nebulizer 00:00: 00:00 (six) [place] solution 00 :00 hours as Medical needed for Branch Wheezing or Shortness of Breath. Nebulizers 0 Yes [id number] Use as Univers Misc 5-29 directed ity of 00:00: [place] 00 Medical Branch Nebulizers 2018-0 Yes [id number] Use as Univers Misc 5-29 directed ity of 00:00: [place] 00 Medical Branch Nebulizers 2018-0 Yes [id number] Use as Univers Misc 5-29 directed ity of 00:00: [place] 00 Medical Branch Nebulizers 2018-0 Yes [id number] Use as Univers Misc 5-29 directed ity of 00:00: [place] 00 Medical Branch Nebulizers 2018-0 Yes [id number] Use as Univers Misc 5-29 directed ity of 00:00: [place] 00 Medical Branch Nebulizers 2018-0 Yes [id number] Use as Univers Misc 5-29 directed ity of 00:00: [place] 00 Medical Branch Nebulizers 2018-0 Yes [id number] Use as Univers Misc 5-29 directed ity of 00:00: [place] 00 Medical Branch Nebulizers 2018-0 Yes [id number] Use as Univers Misc 5-29 directed ity of 00:00: [place] 00 Medical Branch Nebulizers 2019-0 Yes [id number] Use as Univers Misc 5-29 directed ity of 00:00: [place] 00 Medical Branch Nebulizers 2019-0 Yes [id number] Use as Univers Misc 5-29 directed ity of 00:00: [place] 00 Medical Branch Nebulizers 2019-0 Yes [id number] Use as Univers Misc 5-29 directed ity of 00:00: [place] 00 Medical Branch Nebulizers 2019-0 Yes [id number] Use as Univers Misc 5-29 directed ity of 00:00: [place] 00 Medical Branch Nebulizers 2019-0 Yes [id number] Use as Univers Misc 5-29 directed ity of 00:00: [place] 00 Medical Branch Nebulizers 2019-0 Yes [id number] Use as Univers Misc 5-29 directed ity of 00:00: [place] 00 Medical Branch Nebulizers 2019-0 Yes [id number] Use as Univers Misc 5-29 directed ity of 00:00: [place] 00 Medical Branch Nebulizers 2019-0 Yes [id number] Use as Univers Misc 5-29 directed ity of 00:00: [place] 00 Medical Branch Nebulizers 2019-0 Yes [id number] Use as Univers Misc 5-29 directed ity of 00:00: [place] 00 Medical Branch Nebulizers 2019-0 Yes [id number] Use as Univers Misc 5-29 directed ity of 00:00: [place] 00 Medical Branch Nebulizers 2019-0 2020- No [id number] Use as Univers Misc 5-29 12-04 directed ity of 00:00: 00:00 [place] 00 :00 Medical Branch Nebulizers 2019-0 2020- No [id number] Use as Univers Misc 5-29 12-04 directed ity of 00:00: 00:00 [place] 00 :00 Medical Branch lisinopril 2018-1 Yes 5mg Take 1 [facility] 5 mg tablet 2-13 tablet by ity of 00:00: mouth [place] 00 daily. Medical Branch metFORMIN 2018- Yes 500mg Take 1 [facility] 500 mg 2-13 tablet by ity of tablet 00:00: mouth [place] 00 daily. Medical Branch lisinopril 2018- Yes 5mg Take 1 [facility] 5 mg tablet 2-13 tablet by ity of 00:00: mouth [place] 00 daily. Medical Branch metFORMIN 2017-08 Yes 500mg Take 1 [facility] 500 mg 2-13 tablet by ity of tablet 00:00: mouth [place] 00 daily. Medical Branch lisinopril 2017-08 Yes 5mg Take 1 [facility] 5 mg tablet 2-13 tablet by ity of 00:00: mouth [place] 00 daily. Medical Branch metFORMIN 2017-08 Yes 500mg Take 1 [facility] 500 mg 2-13 tablet by ity of tablet 00:00: mouth [place] 00 daily. Medical Branch lisinopril 2017-08 Yes 5mg Take 1 [facility] 5 mg tablet 2-13 tablet by ity of 00:00: mouth [place] 00 daily. Medical Branch metFORMIN 2017-08 Yes 500mg Take 1 [facility] 500 mg 2-13 tablet by ity of tablet 00:00: mouth [place] 00 daily. Medical Branch Immunizations Ordered Filled Immunization Date Status Comments [facility] e Immunization Name Name Pneumococcal 2021-01-06 Completed University o f Polysaccharide, 00:00:00 [place] [facility] ical PPSV23 (PNEUMOVAX) Branch Pneumococcal 2021-01-06 Completed University o f Polysaccharide, 00:00:00 [place] Med ical PPSV23 (PNEUMOVAX) Branch Pneumococcal 2021-01-06 Completed University o f Polysaccharide, 00:00:00 [place] Med ical PPSV23 (PNEUMOVAX) Branch Pneumococcal 2021-01-06 Completed University o f Polysaccharide, 00:00:00 [place] Med ical PPSV23 (PNEUMOVAX) Branch Pneumococcal 2021-01-06 Completed University o f Polysaccharide, 00:00:00 [place] Med ical PPSV23 (PNEUMOVAX) Branch Pneumococcal 2021-01-06 Completed University o f Polysaccharide, 00:00:00 [place] [facility] ical PPSV23 (PNEUMOVAX) Branch Pneumococcal 2021-01-06 Completed University o f Polysaccharide, 00:00:00 [place] Med ical PPSV23 (PNEUMOVAX) Branch Pneumococcal 2021-01-06 Completed University o f Polysaccharide, 00:00:00 [place] Med ical PPSV23 (PNEUMOVAX) Branch Pneumococcal 2021-01-06 Completed University o f Polysaccharide, 00:00:00 [place] Med ical PPSV23 (PNEUMOVAX) Branch Pneumococcal 2021-01-06 Completed University o f Polysaccharide, 00:00:00 [place] [facility] ical PPSV23 (PNEUMOVAX) Branch Pneumococcal 2021-01-06 Completed University o f Polysaccharide, 00:00:00 [place] [facility] ical PPSV23 (PNEUMOVAX) Branch Pneumococcal 2021-01-06 Completed University o f Polysaccharide, 00:00:00 [place] [facility] ical PPSV23 (PNEUMOVAX) Branch Pneumococcal 2021-01-06 Completed University o f Polysaccharide, 00:00:00 [place] Med ical PPSV23 (PNEUMOVAX) Branch Pneumococcal 2021-01-06 Completed University o f Polysaccharide, 00:00:00 [place] [facility] ical PPSV23 (PNEUMOVAX) Branch Influenza Virus 2020-07-29 Completed Universit y of Vaccine Quad .5 mL 00:00:00 [place] [facility] 6+ MO Branch Influenza Virus 2020-07-29 Completed Universit y of Vaccine Quad .5 mL 00:00:00 [place] [facility] IM 6+ MO Branch Influenza Virus 2020-07-29 Completed Universit y of Vaccine Quad .5 mL 00:00:00 [place] [facility] IM 6+ MO Branch Influenza Virus 2020-07-29 Completed Universit y of Vaccine Quad .5 mL 00:00:00 [place] [facility] IM 6+ MO Branch Influenza Virus 2020-07-29 Completed Universit y of Vaccine Quad .5 mL 00:00:00 [place] [facility] IM 6+ MO Branch Influenza Virus 2020-07-29 Completed Universit y of Vaccine Quad .5 mL 00:00:00 [place] [facility] IM 6+ MO Branch Influenza Virus 2020-07-29 Completed Universit y of Vaccine Quad .5 mL 00:00:00 [place] [facility] IM 6+ MO Branch Influenza Virus 2020-07-29 Completed Universit y of Vaccine Quad .5 mL 00:00:00 [place] [facility] IM 6+ MO Branch Influenza Virus 2020-07-29 Completed Universit y of Vaccine Quad .5 mL 00:00:00 [place] [facility] IM 6+ MO Branch Influenza Virus 2020-07-29 Completed Universit y of Vaccine Quad .5 mL 00:00:00 [place] [facility] IM 6+ MO Branch Influenza Virus 2020-07-29 Completed Universit y of Vaccine Quad .5 mL 00:00:00 [place] [facility] IM 6+ MO Branch Influenza Virus 2020-07-29 Completed Universit y of Vaccine Quad .5 mL 00:00:00 [place] [facility] IM 6+ MO Branch Influenza Virus 2020-07-29 Completed Universit y of Vaccine Quad .5 mL 00:00:00 [place] [facility] IM 6+ MO Branch Influenza Virus 2020-07-29 Completed Universit y of Vaccine Quad .5 mL 00:00:00 [place] [facility] IM 6+ MO Branch Influenza Virus 2020-07-29 Completed Universit y of Vaccine Quad .5 mL 00:00:00 [place] [facility] IM 6+ MO Branch Influenza Virus 2020-07-29 Completed Universit y of Vaccine Quad .5 mL 00:00:00 [place] [facility] IM 6+ MO Branch Influenza Virus 2020-07-29 Completed Universit y of Vaccine Quad .5 mL 00:00:00 [place] [facility] IM 6+ MO Branch Influenza Virus 2020-07-29 Completed Universit y of Vaccine Quad .5 mL 00:00:00 [place] [facility] IM 6+ MO Branch Influenza Virus 2020-07-29 Completed Universit y of Vaccine Quad .5 mL 00:00:00 [place] [facility] IM 6+ MO Branch Influenza Virus 2020-07-29 Completed Universit y of Vaccine Quad .5 mL 00:00:00 [place] [facility] IM 6+ MO Branch Influenza Virus 2020-07-29 Completed Universit y of Vaccine Quad .5 mL 00:00:00 [place] [facility] IM 6+ MO Branch Influenza Virus 2020-07-29 Completed Universit y of Vaccine Quad .5 mL 00:00:00 [place] [facility] IM 6+ MO Branch Influenza Virus 2020-07-29 Completed Universit y of Vaccine Quad .5 mL 00:00:00 [place] [facility] IM 6+ MO Branch Influenza Virus 2020-07-29 Completed Universit y of Vaccine Quad .5 mL 00:00:00 [place] [facility] 6+ MO Branch Influenza Virus 2020-07-29 Completed Universit y of Vaccine Quad .5 mL 00:00:00 [place] [facility] IM 6+ MO Branch Influenza Virus 2020-07-29 Completed Universit y of Vaccine Quad .5 mL 00:00:00 [facility] 6+ MO Branch TDAP (ADACEL) 2019-02-25 Completed University of VACCINE 00:00:00 [facility] Pneumococcal 13 2019-02-25 Completed Universit y of Conjugate, PCV13 00:00:00 [facility] dical (Prevnar 13) Branch TDAP (ADACEL) 2019-02-25 Completed University of VACCINE 00:00:00 [facility] Pneumococcal 13 2019-02-25 Completed Universit y of Conjugate, PCV13 00:00:00 [facility] dical (Prevnar 13) Branch TDAP (ADACEL) 2019-02-25 Completed University of VACCINE 00:00:00 [facility] Pneumococcal 13 2019-02-25 Completed Universit y of Conjugate, PCV13 00:00:00 [facility] dical (Prevnar 13) Branch TDAP (ADACEL) 2019-02-25 Completed University of VACCINE 00:00:00 [facility] Pneumococcal 13 2019-02-25 Completed Universit y of Conjugate, PCV13 00:00:00 [facility] dical (Prevnar 13) Branch TDAP (ADACEL) 2019-02-25 Completed University of VACCINE 00:00:00 [facility] Pneumococcal 13 2019-02-25 Completed Universit y of Conjugate, PCV13 00:00:00 [facility] dical (Prevnar 13) Branch TDAP (ADACEL) 2019-02-25 Completed University of VACCINE 00:00:00 [facility] Pneumococcal 13 2019-02-25 Completed Universit y of Conjugate, PCV13 00:00:00 [facility] dical (Prevnar 13) Branch TDAP (ADACEL) 2019-02-25 Completed University of VACCINE 00:00:00 [facility] Pneumococcal 13 2019-02-25 Completed Universit y of Conjugate, PCV13 00:00:00 [facility] dical (Prevnar 13) Branch TDAP (ADACEL) 2019-02-25 Completed University of VACCINE 00:00:00 [facility] Pneumococcal 13 2019-02-25 Completed Universit y of Conjugate, PCV13 00:00:00 [facility] dical (Prevnar 13) Branch TDAP (ADACEL) 2019-02-25 Completed University of VACCINE 00:00:00 [facility] Pneumococcal 13 2019-02-25 Completed Universit y of Conjugate, PCV13 00:00:00 [facility] dical (Prevnar 13) Branch TDAP (ADACEL) 2019-02-25 Completed University of VACCINE 00:00:00 [facility] Pneumococcal 13 2019-02-25 Completed Universit y of Conjugate, PCV13 00:00:00 [facility] dical (Prevnar 13) Branch TDAP (ADACEL) 2019-02-25 Completed University of VACCINE 00:00:00 [facility] Pneumococcal 13 2019-02-25 Completed Universit y of Conjugate, PCV13 00:00:00 [facility] dical (Prevnar 13) Branch TDAP (ADACEL) 2019-02-25 Completed University of VACCINE 00:00:00 [facility] Pneumococcal 13 2019-02-25 Completed Universit y of Conjugate, PCV13 00:00:00 [facility] dical (Prevnar 13) Branch TDAP (ADACEL) 2019-02-25 Completed University of VACCINE 00:00:00 [facility] Pneumococcal 13 2019-02-25 Completed Universit y of Conjugate, PCV13 00:00:00 [facility] dical (Prevnar 13) Branch TDAP (ADACEL) 2019-02-25 Completed University of VACCINE 00:00:00 [facility] Pneumococcal 13 2019-02-25 Completed Universit y of Conjugate, PCV13 00:00:00 [facility] dical (Prevnar 13) Branch TDAP (ADACEL) 2019-02-25 Completed University of VACCINE 00:00:00 [facility] Pneumococcal 13 2019-02-25 Completed Universit y of Conjugate, PCV13 00:00:00 [facility] dical (Prevnar 13) Branch TDAP (ADACEL) 2019-02-25 Completed University of VACCINE 00:00:00 [facility] Pneumococcal 13 2019-02-25 Completed Universit y of Conjugate, PCV13 00:00:00 [facility] dical (Prevnar 13) Branch TDAP (ADACEL) 2019-02-25 Completed University of VACCINE 00:00:00 [facility] Pneumococcal 13 2019-02-25 Completed Universit y of Conjugate, PCV13 00:00:00 [facility] dical (Prevnar 13) Branch TDAP (ADACEL) 2019-02-25 Completed University of VACCINE 00:00:00 [facility] Pneumococcal 13 2019-02-25 Completed Universit y of Conjugate, PCV13 00:00:00 [facility] dical (Prevnar 13) Branch TDAP (ADACEL) 2019-02-25 Completed University of VACCINE 00:00:00 [facility] Pneumococcal 13 2019-02-25 Completed Universit y of Conjugate, PCV13 00:00:00 [facility] dical (Prevnar 13) Branch TDAP (ADACEL) 2019-02-25 Completed University of VACCINE 00:00:00 [facility] Pneumococcal 13 2019-02-25 Completed Universit y of Conjugate, PCV13 00:00:00 [facility] dical (Prevnar 13) Branch TDAP (ADACEL) 2019-02-25 Completed University of VACCINE 00:00:00 [facility] Pneumococcal 13 2019-02-25 Completed Universit y of Conjugate, PCV13 00:00:00 [facility] dical (Prevnar 13) Branch TDAP (ADACEL) 2019-02-25 Completed University of VACCINE 00:00:00 [facility] Pneumococcal 13 2019-02-25 Completed Universit y of Conjugate, PCV13 00:00:00 [facility] dical (Prevnar 13) Branch TDAP (ADACEL) 2019-02-25 Completed University of VACCINE 00:00:00 [facility] Pneumococcal 13 2019-02-25 Completed Universit y of Conjugate, PCV13 00:00:00 [facility] dical (Prevnar 13) Branch TDAP (ADACEL) 2019-02-25 Completed University of VACCINE 00:00:00 [facility] Pneumococcal 13 2019-02-25 Completed Universit y of Conjugate, PCV13 00:00:00 [facility] dical (Prevnar 13) Branch TDAP (ADACEL) 2019-02-25 Completed University of VACCINE 00:00:00 [facility] Pneumococcal 13 2019-02-25 Completed Universit y of Conjugate, PCV13 00:00:00 [facility] dical (Prevnar 13) Branch TDAP (ADACEL) 2019-02-25 Completed University of VACCINE 00:00:00 [facility] Pneumococcal 13 2019-02-25 Completed Universit y of Conjugate, PCV13 00:00:00 [facility] dical (Prevnar 13) Branch TDAP (ADACEL) 2019-02-25 Completed University of VACCINE 00:00:00 [facility] Pneumococcal 13 2019-02-25 Completed Universit y of Conjugate, PCV13 00:00:00 [facility] dical (Prevnar 13) Branch TDAP (ADACEL) 2019-02-25 Completed University of VACCINE 00:00:00 [facility] Pneumococcal 13 2019-02-25 Completed Universit y of Conjugate, PCV13 00:00:00 [facility] dical (Prevnar 13) Branch TDAP (ADACEL) 2019-02-25 Completed University of VACCINE 00:00:00 [facility] Pneumococcal 13 2019-02-25 Completed Universit y of Conjugate, PCV13 00:00:00 [facility] dical (Prevnar 13) Branch TDAP (ADACEL) 2019-02-25 Completed University of VACCINE 00:00:00 [facility] Pneumococcal 13 2019-02-25 Completed Universit y of Conjugate, PCV13 00:00:00 [facility] dical (Prevnar 13) Branch TDAP (ADACEL) 2019-02-25 Completed University of VACCINE 00:00:00 [facility] Pneumococcal 13 2019-02-25 Completed Universit y of Conjugate, PCV13 00:00:00 [facility] dical (Prevnar 13) Branch TDAP (ADACEL) 2019-02-25 Completed University of VACCINE 00:00:00 [facility] Pneumococcal 13 2019-02-25 Completed Universit y of Conjugate, PCV13 00:00:00 [facility] dical (Prevnar 13) Branch TDAP (ADACEL) 2019-02-25 Completed University of VACCINE 00:00:00 [facility] Pneumococcal 13 2019-02-25 Completed Universit y of Conjugate, PCV13 00:00:00 [facility] dical (Prevnar 13) Branch TDAP (ADACEL) 2019-02-25 Completed University of VACCINE 00:00:00 [facility] TDAP (ADACEL) 2019-02-25 Completed University of VACCINE 00:00:00 [facility] Pneumococcal 13 2019-02-25 Completed Universit y of Conjugate, PCV13 00:00:00 [facility] dical (Prevnar 13) Branch Pneumococcal 13 2019-02-25 Completed Universit y of Conjugate, PCV13 00:00:00 [facility] dical (Prevnar 13) Branch TDAP (ADACEL) 2019-02-25 Completed University of VACCINE 00:00:00 [facility] Pneumococcal 13 2019-02-25 Completed Universit y of Conjugate, PCV13 00:00:00 [facility] dical (Prevnar 13) Branch TDAP (ADACEL) 2019-02-25 Completed University of VACCINE 00:00:00 [facility] Pneumococcal 13 2019-02-25 Completed Universit y of Conjugate, PCV13 00:00:00 [facility] dical (Prevnar 13) Branch TDAP (ADACEL) 2019-02-25 Completed University of VACCINE 00:00:00 [facility] Pneumococcal 13 2019-02-25 Completed Universit y of Conjugate, PCV13 00:00:00 [facility] dical (Prevnar 13) Branch TDAP (ADACEL) 2019-02-25 Completed University of VACCINE 00:00:00 [facility] Pneumococcal 13 2019-02-25 Completed Universit y of Conjugate, PCV13 00:00:00 [facility] (Prevnar 13) [facility] TDAP (ADACEL) 2019-02-25 Completed University of VACCINE 00:00:00 [facility] Pneumococcal 13 2019-02-25 Completed Universit y of Conjugate, PCV13 00:00:00 [facility] dical (Prevnar 13) Branch TDAP (ADACEL) 2019-02-25 Completed University of VACCINE 00:00:00 [facility] Pneumococcal 13 2019-02-25 Completed Universit y of Conjugate, PCV13 00:00:00 [facility] dical (Prevnar 13) Branch TDAP (ADACEL) 2019-02-25 Completed University of VACCINE 00:00:00 [facility] Pneumococcal 13 2019-02-25 Completed Universit y of Conjugate, PCV13 00:00:00 [facility] dical (Prevnar 13) Branch TDAP (ADACEL) 2019-02-25 Completed University of VACCINE 00:00:00 [facility] TDAP (ADACEL) 2019-02-25 Completed University of VACCINE 00:00:00 [facility] Pneumococcal 13 2019-02-25 Completed Universit y of Conjugate, PCV13 00:00:00 [facility] dical (Prevnar 13) Branch Pneumococcal 13 2019-02-25 Completed Universit y of Conjugate, PCV13 00:00:00 [facility] dical (Prevnar 13) Branch Vital Signs Vital Name Observation Time Observation Value Comments Source Systolic blood 2021-02-16 15:01:00 132 mm[Hg] Univer sity of pressure [facility] Diastolic blood 2021-02-16 15:01:00 78 mm[Hg] [facility] Heart rate 2021-02-16 15:01:00 83 /min [facility] Body temperature 2021-02-16 15:01:00 36.5 Cookie [facility] ers[facility]ly [facility] Body height 2021-02-16 15:01:00 171.5 cm [facility] Body weight 2021-02-16 15:01:00 88.27 kg [facility] BMI 2021-02-16 15:01:00 30.03 kg/m2 [facility] Oxygen saturation in 2021-02-16 15:01:00 97 /min [facility] Arterial blood by [facility] Pulse oximetry Branch Systolic blood 2021-01-06 15:03:00 130 mm[Hg] Univer sity of pressure [facility] Diastolic blood 2021-01-06 15:03:00 64 mm[Hg] Unive rsity of pressure [facility] Heart rate 2021-01-06 15:03:00 80 /min Universi ty of [facility] Body temperature 2021-01-06 15:03:00 36.61 Cookie Univ ersity of [facility] Respiratory rate 2021-01-06 15:03:00 18 /min Univ ersity of [facility] Body height 2021-01-06 15:03:00 172.7 cm Universi [facility] Body weight 2021-01-06 15:03:00 91.173 kg Universi ty of [facility] BMI 2021-01-06 15:03:00 30.56 kg/m2 Universi ty of [facility] Oxygen saturation in 2021-01-06 15:03:00 99 /min University of Arterial blood by [facility] Pulse oximetry Branch BMI 2020-07-29 15:01:00 29.73 kg/m2 Universi ty of [facility] Oxygen saturation in 2020-07-29 15:01:00 98 /min University of Arterial blood by [facility] Pulse oximetry Branch Systolic blood 2020-07-29 15:01:00 123 mm[Hg] Univer sity of pressure [facility] Diastolic blood 2020-07-29 15:01:00 65 mm[Hg] Unive rsity of pressure [facility] Heart rate 2020-07-29 15:01:00 82 /min Universi ty of [facility] Body temperature 2020-07-29 15:01:00 36.39 Cookie Univ ersity of [facility] Body height 2020-07-29 15:01:00 174 cm Universi ty of [facility] Body weight 2020-07-29 15:01:00 89.994 kg Universi ty of [facility] Systolic blood 2020-02-12 14:16:00 118 mm[Hg] Univer sity of pressure [facility] Diastolic blood 2020-02-12 14:16:00 68 mm[Hg] Unive rsity of pressure [facility] Heart rate 2020-02-12 14:16:00 73 /min Universi ty of [facility] Body weight 2020-02-12 14:16:00 90.493 kg [facility] BMI 2020-02-12 14:16:00 30.33 kg/m2 [facility] Oxygen saturation in 2020-02-12 14:16:00 95 /min University of Arterial blood by [facility] Pulse oximetry Branch Systolic blood 2019-03-31 21:07:00 130 mm[Hg] Univer sity of [facility] Diastolic blood 2019-03-31 21:07:00 78 mm[Hg] Unive rsity of [facility] Heart rate 2019-03-31 21:07:00 60 /min [facility] Body temperature 2019-03-31 21:07:00 36.78 Cookie [facility] ersFormerly [facility] Respiratory rate 2019-03-31 21:07:00 18 /min [facility] Body height 2019-03-31 21:07:00 172.7 [facility] weight 2019-03-31 21:07:00 91.354 kg [facility] BMI 2019-03-31 21:07:00 30.62 kg/m2 [facility] Oxygen saturation in 2019-03-31 21:07:00 98 /min University of Arterial blood by [facility] Pulse oximetry Branch Procedures Procedure Date / Time Performing Clinician Source Performed PNEUMOCOCCAL VACCINE, 2021-01-06 15:24:12 Moy Hines [facility] 23-VALENT (PNEUMOVAX) Medical Br anch ASSIGNMENT OF BENEFITS 2021-01-02 14:37:24 Doctor Unassigned, No [facility] FLU VACC ([id number]), 6+ 2020-07-29 15:09:09 Moy Hines [facility] MONTHS, IM, QUAD Medical Branch PATIENT QUESTIONNAIRE 2020-07-29 06:01:00 Doctor Unassigned, No [facility] HEPATITIS B SURFACE 2020-02-12 15:33:00 Moy Hines [facility] ANTIGEN [facility] HCV ANTIBODY 2020-02-12 15:33:00 Moy Hines [place] [facility] HEPATITIS A VIRUS 2020-02-12 15:33:00 Moy Hines [facility] ANTIBODY IGM [facility] HEPATITIS B CORE 2020-02-12 15:33:00 Hines, [facility] ANTIBODY IGM [facility] HB ABO GROUPING 2020-02-12 15:33:00 [facility] o f [facility] DME/SUPPLY JUSTIFICATION 2020-02-12 05:01:00 Doctor Unassigned, No [facility] Name Medical [place] THYROID STIMULATING 2020-02-08 13:06:00 Moy Hines [facility] ty [facility] HORMONE [facility] MICROALBUMIN URINE 2020-02-08 13:06:00 Moy Hines [facility] COMP. METABOLIC PANEL 2020-02-08 13:06:00 [facility] ([id number]) Medical [place] LIPID PANEL 2020-02-08 13:06:00 [facility] ([id number])(TOTAL [facility] CHOLESTEROL, TRIGLYCERIDES, HDL) CBC WITH DIFFERENTIAL 2020-02-08 13:06:00 [place] Moy [facility] GLYCOSYLATED HEMOGLOBIN 2020-02-08 13:06:00 [place] Moy [facility] (A1C) [facility] Encounters Start End Encounter Admission Attending Care Care Encounter Source Date/Time Date/Time Type Type Clinicians Facility Department ID 2021-07-11 2021-07-11 Outpatient R HAYDER [facility] [id number] [facility] 10:30:00 10:30:00 MOY [id number] [facility] 2021-05-11 2021-05-11 Outpatient [facility] [id number] [address] [place] [address] 00:00:00 00:00:[address] 2021-04-10 2021-04-10 Outpatient R [facility] [id number] [facility]:00:00 [facility] 2021-04-10 2021-04-10 Outpatient R [facility] [id number] Univers 09:00:00 09:00:00 [id number] [facility] 2021-03-03 2021-03-03 Telephone Hayder DCTAMRA [id number] Univers 00:00:00 00:00:00 Moy MULTISPEC 350.1.13.10 [facility] [id number] [facility] [id number] [address] [facility] 2021-03-02 2021-03-02 Patient [facility] [id number] Univers 00:00:00 00:00:00 Secure Msg Moy MULTISPEC [id number] [place] [id number] [address] [facility] 2021-02-24 2021-02-24 Telephone [facility] [id number] Univers 00:00:00 00:00:00 Moy MULTISPEC 350.1.13.10 [place]2.[place].2.686 [place] [id number] [address] [facility] 2021-02-22 2021-02-22 Telephone [facility] [id number] Univers 00:00:00 00:00:00 Moy MULTISPEC 350.1.13.10 ity [place]2.[place].2.686 [place] [id number] [address] [facility] 2021-02-20 2021-02-20 Telephone [facility] [id number] Univers 00:00:00 00:00:00 Moy MULTISPEC 350.1.13.10 it[place]2.7.2.686 [place] [id number] [address] [facility] 2021-02-20 2021-02-20 Telephone [facility] [id number] Univers 00:00:00 00:00:00 Moy MULTISPEC 350.1.13.10 [place]2.7.2.686 [place] [id number] [address] [facility] 2021-02-16 2021-02-16 Office [facility] [id number] Univers 09:48:38 10:18:38 Visit Moy MULTISPEC 350.1.13.10 ity of [place] 4.2.7.2.686 [place] [id number] [facility] AND [place] [address] [place] [facility] 2021-02-16 2021-02-16 Outpatient R HAYDER [facility] [id number] Univers 10:00:00 10:00:00 MOY itsonny [facility] 2021-02-16 2021-02-16 Outpatient R [facility] [id number] Univers 10:00:00 10:00:00 [id number] ity [facility] 2021-02-16 2021-02-16 Outpatient R [facility] [id number] Univers 10:00:00 10:00:00 ity [facility] 2021-02-16 2021-02-16 Telephone Hayder [facility] [id number] Univers 00:00:00 00:00:00 Moy WEBER 350.1.13.10 ity [facility] 4.2.7.2.686 [facility] [place] [id number] [address] DI[facility] 2021-02-13 2021-02-13 Edge Stainer Ramy, Adc Lab Main [facility] [id number] Univers 09:58:40 10:13:40 Visit Moy Hines 350.1.13.10 ity [facility] 4.2.7.2.686 [facility] Professio [id number] Ak dical [address] 2021-02-13 2021-02-13 Outpatient R [facility] [id number] Univers 10:00:00 10:00:00 [id number] ity [facility] 2021-02-13 2021-02-13 Outpatient R HAYDER [facility] [id number] Univers 10:00:00 10:00:00 MOY daniel [facility] 2021-02-03 2021-02-03 Outpatient R HAYDER [facility] [id number] Univers 09:00:00 09:00:00 [facility] [id number] [facility] 2021-01-25 2021-01-25 Patient Doctor [facility] 1.2.840.114 [id number] Univers 00:00:00 00:00:00 Secure Msg Unassigned, MULTISPEC 350.1.13.10 ity of [place] IALTY 4.2.7.2.686 [facility] [id number] [address] DI[facility]ES [facility] 2021-01-06 2021-01-06 Office Hines [facility] [id number] Univers 09:49:11 10:19:[address] [facility] 350.1.13.10 ity of IALTY 4.2.7.2.686 [facility] [place] [id number] [address] [facility] 2021-01-06 2021-01-06 [place] [id number] Univers 10:00:00 10:00:00 MOY [id number] [facility] 2021-01-06 2021-01-06 Outpatient R HAYDER [facility] [id number] Univers 10:00:00 10:00:00 MOY [facility] 2021-01-04 2021-01-04 [facility] [id number] Univers 00:00:00 00:00:[address] [facility] 350.1.13.10 ity of IALTY 4.2.7.2.686 [facility] [place] [id number] [address] DI[facility]ES [facility] 2021-01-02 2021-01-02 Outpatient R [facility] [id number] Univers 10:00:00 10:00:00 [id number] [facility] 2021-01-02 2021-01-02 Outpatient R HAYDER [facility] [id number] Univers 10:00:00 10:00:00 MOY [facility] 2021-01-02 2021-01-02 Edge Stainer Vt-Lab [facility] 1.2.840.114 [id number] Univers 09:38:45 09:53:45 Visit Moy Hines 350.1.13.10 ity of IALTY 4.2.7.2.686 [facility] [id number] [address] DIABETES [facility]IC 2021-01-02 2021-01-02 Orders Doctor CHYNA 1.2.840.114 [id number] Univers 00:00:00 00:00:00 Only Unassigned, BELLA 350.1.13.10 ity of [place] [facility] 4.2.7.2.686 [place] [id number] [facility] 009 Branch 2020-12-15 2020-12-15 Patient Hines [facility] 1.2.840.114 [id number] Univers 00:00:00 00:00:00 Secure Msg Moy MULTISPEC 350.1.13.10 [place] [id number] [address] [facility] 2020-11-05 2020-11-05 Patient Jorge L [facility] 1.2.840.114 [id number] Univers 00:00:00 00:00:00 Outreach [place] PRIMARY 350.1.13.10 i ty of [facility] 4.2.7.2.686 [place] [id number] Ak dical [address] [place] 2020-10-20 2020-10-20 Patient Hayder [facility] 1.2.840.114 [id number] Univers 00:00:00 00:00:00 Secure Msg Moy MULTISPEC 350.1.13.10 ity [place].2.7.2.686 [place] [id number] [address] [facility] 2020-10-17 2020-10-17 Outpatient R HAYDER [facility] [id number] Univers 14:30:00 14:30:00 MOY [id number] ity [facility] 2020-10-10 2020-10-10 [place] [id number] Univers 10:00:00 10:00:00 MOY [id number] ity [facility] 2020-10-09 2020-10-09 Telephone Hayder [facility] [id number] Univers 00:00:00 00:00:00 Moy MULTISPEC 350.1.13.10 [place] 4.2.7.2.686 [place] [id number] [address] [facility] 2020-10-07 2020-10-07 Patient [facility] 1.2.840.114 [id number] Univers 00:00:00 00:00:00 Secure Msg Moy MULTISPEC 350.1.13.10 ity of IALTY 4.2.7.2.686 [facility] [place] [id number] [address] DIABETES [facility] 2020-08-01 2020-08-01 Telephone [facility] [id number] Univers 00:00:00 00:00:00 Moy VYASPEC 350.1.13.10 ity of IALTY 4.2.7.2.686 [facility] [place] [id number] [address] DI[facility]ES [facility]IC 2020-07-29 2020-07-29 Office [facility] 1.2.840.114 [id number] Univers 08:37:41 09:07:41 Visit Moy WEBER 350.1.13.10 ity of IALTY 4.2.7.2.686 [facility] [id number] [address] DIABETES [facility] 2020-07-29 2020-07-29 Outpatient R HAYDER [facility] [id number] Univers 09:00:00 09:00:00 MOY [id number] ity of [facility] 2020-07-29 2020-07-29 Outpatient R HAYDER [facility] [id number] Univers 09:00:00 09:00:00 MOY ity of [facility] 2020-07-29 2020-07-29 Orders Doctor CHYNA 1.2.840.114 [id number] Univers 00:00:00 00:00:00 Only Unassigned, BELLA 350.1.13.10 ity of [place] [facility] 4.2.7.2.686 [facility] [id number] [address] 2020-07-27 2020-07-27 Telephone [facility] [id number] Univers 00:00:00 00:00:00 Moy MULTISPEC 350.1.13.10 ity of IALTY 4.2.7.2.686 [facility] [place] [id number] [address] [facility]ES [facility] 2020-07-26 2020-07-26 Outpatient R [facility] [id number] Univers 11:15:00 11:15:00 ity [facility] 2020-07-26 2020-07-26 Outpatient Gabriel HAYDER [facility] [id number] Univers 11:15:00 11:15:00 MOY daniel [facility] 2020-07-26 2020-07-26 Edge Stainer Vtc-Lab [facility] 1.2.840.114 [id number] Univers 10:41:25 10:56:25 Visit Moy HinesPEC 350.1.13.10 ity of IALTY 4.2.7.2.686 [facility] [place] [id number] [address] DIABETES [facility] 2020-07-25 2020-07-25 Patient Hayder [facility] 1.2.840.114 [id number] [facility] 00:00:00 00:00:00 Secure Msg Moy VYASPEC 350.1.13.10 ity of IALTY 4.2.7.2.686 [facility] [place] [id number] [address] DI[facility]ES [facility] 2020-02-26 2020-02-26 Outpatient Gabriel HINES [facility] [id number] Univers 13:00:00 13:00:00 MOY daniel [facility] 2020-02-22 2020-02-22 Outpatient [facility] [id number] [place] 00:00:00 00:00:00 NEELIMA chavez 2020-02-12 2020-02-15 Edge Stainer Vt-Lab [facility] 1.2.840.114 [id number] Univers 09:45:02 10:51:40 Visit Moy HinesPEC 350.1.13.10 ity of IALTY 4.2.7.2.68[facility] [place] [id number] [address] DI[facility]ETES CLINIC 2020-02-12 2020-02-12 Outpatient Gabriel HINES [facility] [id number] Univers 09:40:00 09:40:00 MOY [id number] ity [facility] 2020-02-12 2020-02-12 Outpatient R HAYDER [facility] [id number] Univers 09:40:00 09:40:00 MOY itsonny [facility] 2020-02-12 2020-02-12 Outpatient R HAYDER [facility] [id number] Univers 09:40:00 09:40:00 MOY daniel [facility] 2020-02-12 2020-02-12 Office [facility] 1.2.840.114 [id number] Univers 09:12:47 09:32:47 Visit Moy WEBER 350.1.13.10 ity [place].2.7.2.686 [place] [id number] [address] [facility] 2020-02-12 2020-02-12 Orders Doctor CHYNA 1.2.840.114 [id number] Univers 00:00:00 00:00:00 Only Unassigned, BELLA 350.1.13.10 ity of [place] [facility] 4.2.7.2.686 [place] [id number] [address] 2020-02-08 2020-02-08 Edge Stainer Vtc-Lab [facility] 1.2.840.114 [id number] Univers 07:47:04 14:43:52 Visit Moy Hines 350.1.13.10 ity [place].2.7.2.686 [place] [id number] [facility] [address] [place] DIABETES [facility] 2020-02-08 2020-02-08 Outpatient R [facility] [id number] Univers 08:30:00 08:30:00 [id number] ity of [facility] 2020-02-08 2020-02-08 Outpatient [place] [id number] Univers 08:30:00 08:30:00 MOY itsonny [facility] 2020-01-28 2020-01-28 Telephone [facility] [id number] Univers 00:00:00 00:00:00 Moy WEBER 350.1.13.10 ity [place].2.7.2.686 [place] [id number] [address] [facility]ES [facility]INIC 2019-11-09 2019-11-09 German [facility] 1.2.840.114 [id number] Univers 00:00:00 00:00:00 Moy WEBER 350.1.13.10 ity of IALTY 4.2.7.2.686 [facility] [place] [id number] [address] DIABETES CLINIC 2019-08-28 2019-08-28 Outpatient JOSH MULTANI [facility] VLS [id number] Univers 07:32:00 11:12:00 ity of [facility] 2019-08-24 2019-08-24 Patient Doctor [facility] 1.2.840.114 [id number] Univers 00:00:00 00:00:00 Secure Msg Unassigned, SPECIALTY 350.1.13.10 ity of [place] CARE 4.2.7.2.686 [facility] AT [phone] Ak daria [address] 2019-08-14 2019-08-14 Patient Doctor [facility] 1.2.840.114 [id number] Univers 00:00:00 00:00:00 Secure Msg Unassigned, SPECIALTY 350.1.13.10 ity of [place] CARE 4.2.7.2.686 [facility] C[facility] AT [id number] Ak daria [address] 2019-07-13 2019-07-13 Outpatient [place] [facility] [id number] Univers 07:40:00 07:40:00 [facility] 2019-05-28 2019-05-28 Outpatient [place] [id number] Univers 13:00:00 [facility]37:[facility] 2019-03-31 2019-04-01 Office Aubrey [facility] [id number] Univers 15:58:34 08:11:46 Visit Nadiya WEBER 350.1.13.10 ity of IALTY 4.2.7.2.686 [facility] [id number] [address] DIABETES CLINIC 2019-04-01 2019-04-01 Patient Doctor CHYNA 1.2.840.114 [id number] Univers 00:00:00 00:00:00 Secure Msg UnassignedBELLA 350.1.13.10 ity of [facility] [id number] [place] [id number] [facility] [address] 2019-03-26 2019-03-26 Telephone Hayder [facility] [id number] Univers 00:00:00 00:00:00 Moy VYASPEC [id number] ity of [place] [id number] [facility] [phone] [place] [address] [address] [facility] 2019-02-25 2019-02-25 Outpatient [place] [id number] Univers 09:20:00 09:20:00 MOY daniel [facility] Results Test Description Test Time Test Comments Results Result Comments Source SARS coronavirus 2 RNA [Presence] in Respiratory speci men by 2020-02-22 22:10:25 HILARY with probe detection Test Item Value Reference Range Interpretation Comme nts SARS coronavirus 2 RNA [Presence] in Respiratory Not detected Not-D etected specimen by HILARY with probe detection (test code = 43682-8) Type and Screen -2020-02-12 21:11:14 Test Item Value Reference Range Interpretation Comments ABO & RH (test code A POSITIVE Performe d at [facility] = 20) Laboratory Serv [facility]3 [address] [facility] s [id number] Free: [phone] A No. [id number] IAT (test code = Negative Performed a t [facility] 1185) Laboratory Serv [facility]3 [address] [facility] s [id number] Free: [phone] A No. [id number] [facility] [id number] 20:55:00 Test Item Value Reference Range Interpretation Comments HCV Ab (test code = 85521-7) Negative HCV Semi-Quantitative (test code = 96655-1) [facility] Center[facility]AT[facility] A VIRUS ANTIBODY [id number] 20:11:00 Test Item Value Reference Range Interpretation Comments HAVM Negative Semi-Quantitative (test code = 87183-4) CAT (test code = HAVAb IgM Interpretative CAT) Information: Reactive greater than or equal to 1.2 Biotin has been reported to cause a negative bias, interpret results relative to patient's use of biotin. [facility] B CORE ANTIBODY [id number] 20:11:00 Test Item Value Reference Range Interpretation Comments HBCM Negative Semi-Quantitative (test code = 83941-4) CAT (test code = Biotin has been reported CAT) to cause a negative bias, interpret results relative to patient's use of biotin. [facility] B SURFACE [id number] 17:34:00 Test Item Value Reference Range Interpretation Comments HBsAg Semi-Quantitative (test code = Negative Negative 5195-3) [facility] Center[facility]CROALBUMIN [id number] 19:18:00 Test Item Value Reference Range Interpretation Comments CREAT U (test 154.3 mg/dL code = 7034499381) MICROALB U 6 ug/mL 0-45 (test code = 92438-9) MICROAL/CR See_Comment [Automated (test code = message] The 9318-7) system which generated this result transmitted reference range : 0 - 30 mg/g of creatinine. The reference range was not used to interpret this result as normal/abnormal . CAT (test code Normal: <30 mg/g = CAT) creatinineMicroalbuminur ia: 30 - 299 mg/g creatinineClinical albuminuria: > 300 mg/g creatinine [facility] CenterTHYROID STIMULATING [id number] 15:53:00 Test Item Value Reference Range Interpretation Comments TSH (test code = See_Comment [Automated message] 1217495183) The system [employer] generated this result transmitted ref erence range: 0.45 - 4 .70 mIU/L. The refe rence range was not u sed to interpret this result as normal/abnor mal. Lab Interpretation (test Normal code = 49439-4) [facility] Center[facility]. METABOLIC PANEL (31318)2020-02-08 15:27:00 Test Item Value Reference Range Interpretation Comments NA (test code = 137 mmol/L 135-145 2147725246) K (test code = 4.9 mmol/L 3.5-5 9657714694) CL (test code = 102 mmol/L 98-108 4207400403) CO2 TOTAL (test code = 26 mmol/L 23-31 4419699274) AGAP (test code = 2-16 4539535330) BUN (test code = 21 mg/dL 7-23 1896333517) GLUCOSE (test code = 130 mg/dL 70-110 H 7012665875) CREATININE (test code = 0.69 mg/dL 0.6-1.25 2046739014) TOTAL BILI (test code = 0.5 mg/dL 0.1-1.7 2603003453) CALCIUM (test code = 9.7 mg/dL 8.6-10.6 5278522999) T PROTEIN (test code = 7.4 g/dL 6.3-8.2 1356069486) ALBUMIN (test code = 4.4 g/dL 3.5-5 7479688929) ALK PHOS (test code = 70 U/L 34-122 1600762370) ALTv (test code = 187 U/L 5-50 H 1742-6) AST(SGOT) (test code = 50 U/L 13-40 H 3043817137) eGFR Calculation mL/min/1.73m2 (Non-) (test code = 0277561815) eGFR Calculation mL/min/1.73m2 () (test code = 7040621147) CAT (test code = CAT) Association of Glomerular Filtration Rate (GFR) and Staging of Kidney Disease* + --+ --+ ------+| GFR (mL/min/1.73 m2) ?| With Kidney Damage ?| ?Without Kidney Damage+ --------+ --------+ +| ?>90 ?| ?Stage one ?| ? Normal ?+ ---+ ---+ -------+| ?60-89 ?| ?Stage two ?| ? Decreased GFR ? + --+ --+ ------+| ?30-59 ?| ?Stage three ?| ? Stage three ? + --+ --+ ------+| ?15-29 ?| ?Stage four ? | ? Stage four ?+ ---+ ---+ -------+| ?<15 (or dialysis) ? ?| ?Stage five ? | ? Stage five ?+ ---+ ---+ -------+ *Each stage assumes the associated GFR level has been in effect for at least three months. ?Stages 1 to 5, with or without kidney disease, indicate chronic kidney disease. Notes: Determination of stages one and two (with eGFR >59mL/min/1.73 m2) requires estimation of kidney damage for at least three months as defined by structural or functional abnormalities of the kidney, manifested by either:Pathological abnormalities or Markers of kidney damage (including abnormalities in the composition of the blood or urine or abnormalities in imaging tests). Lab Interpretation Abnormal (test code = 66064-3) [facility] CenterLIPID PANEL (89855)(TOTAL CHOLESTEROL, TRIGLYCERIDES, HDL)2020-02-08 15:27:00 Test Item Value Reference Range Interpretation Comments CHOL (test code = 186 mg/dL 120-200 5823345698) HDL (test code = 23 mg/dL >40 L 4630795589) HDLC RATIO (test code = See_Comment H [Au tomated message] 7251836919) The system [employer] generated this result transmit goldy reference range : <=5.0. The refe rence range was not u sed to interpret th is result as normal/abnormal . TRIG (test code = 181 mg/dL 30-170 H 4689133923) LDL CHOL (test code = 127 mg/dL See_Comment [Auto mated message] 60589-4) The system [employer] generated this result transmit goldy reference range : <=160. The refe rence range was not u sed to interpret th is result as normal/abnormal . VLDL (test code = 36 mg/dL 5-60 5754757629) Lab Interpretation (test Abnormal code = 75529-4) [facility] CenterGLYCOSYLATED HEMOGLOBIN (A1C)2020-02-08 14:27:00 Test Item Value Reference Range Interpretation Comments HGB A1C (test code = See_Comment H [Autom ated message] 4548-4) The system [employer] generated this result transmitted ref erence range: 4.0 - 6. 0 % NGSP. The refer ence range was not u sed to interpret this result as normal/abnor mal. Lab Interpretation (test Abnormal code = 56906-9) [facility] CenterCBC WITH [id number] 14:08:00 Test Item Value Reference Range Interpretation Comments WBC (test code = See_Comment [Automated 6690-2) message] The sy stem which generated this result transmitted reference range : 4.20 - 10.70 10*3/?L. The reference range was not used to interpret this result as normal/abnormal . RBC (test code = See_Comment [Automated 789-8) message] The sy stem which generated this result transmitted reference range : 4.26 - 5.52 10*6/?L. The reference range was not used to interpret this result as normal/abnormal . HGB (test code = 15.7 g/dL 12.2-16.4 718-7) HCT (test code = 47.2 % 38.4-49.3 4544-3) MCV (test code = 87.9 fL 81.7-95.6 787-2) MCH (test code = 29.2 pg 26.1-32.7 785-6) MCHC (test code = 33.3 g/dL 31.2-35 786-4) RDW-SD (test code = 39.6 fL 38.5-51.6 69122-7) RDW-CV (test code = 12.3 % 12.1-15.4 788-0) PLT (test code = See_Comment [Automated 777-3) message] The sy stem which generated this result transmitted reference range : 150 - 328 10*3/ ?L. The reference r anderson was not used to interpret this result as normal/abnormal . MPV (test code = 9.2 fL 9.8-13 L 00925-3) NRBC/100 WBC (test See_Comment [Automat ed code = 2354940717) message] The system which generated this result transmitted reference range : 0.0 - 10.0 /100 WBCs. The refer ence range was not u sed to interpret th is result as normal/abnormal . NRBC x10^3 (test code <0.01 See_Comment [Auto mated = 4880227508) message] The s ystem which generated this result transmitted reference range : 10*3/?L. The reference range was not used to interpret this result as normal/abnormal . GRAN MAT (NEUT) % 64.8 % (test code = 770-8) IMM GRAN % (test code 0.50 % = 1565665489) LYMPH % (test code = 26.7 % 736-9) MONO % (test code = 6.5 % 5905-5) EOS % (test code = 1.1 % 713-8) BASO % (test code = 0.4 % 706-2) GRAN MAT x10^3(ANC) 3.70 10*3/uL 1.99-6.95 (test code = 0415500230) IMM GRAN x10^3 (test 0.03 10*3/uL 0-0.06 code = 8815861762) LYMPH x10^3 (test code 1.52 10*3/uL 1.09-3.23 = 731-0) MONO x10^3 (test code 0.37 10*3/uL 0.36-1.02 = 742-7) EOS x10^3 (test code = 0.06 10*3/uL 0.06-0.53 711-2) BASO x10^3 (test code <0.03 0.01-0.09 = 704-7) Lab Interpretation Abnormal (test code = 51839-6) [facility]"
[2021-07-11] MEDS ORDERED: METHYLPREDNISOLONE 125 MG INJ ONE (16:44)
[2021-07-11] MEDS ORDERED: LEVALBUTEROL 1.25 MG/3 ML NEB ONE (16:44)
[2021-07-11 16:59] LABS: Absolute Lymphocytes (CBC) 0.8 K/uL (0.7-4.9); Basophils % 0.1 % (0-1.3); Hematocrit 43.4 % (39.6-49.0); Lymphocytes % 6.3 % (15.3-44.8); MPV 7.5 fL (7.6-11.3); RBC Red Blood Cell Count 5.11 M/uL (4.33-5.43)
[2021-07-11 17:00] LABS: Protime INR 1.33
[2021-07-11] MEDS ORDERED: MAGNESIUM SULFATE 1 gm IVPB 1 GM/100 ML BAG IV ONE (17:02)
[2021-07-11 17:14] LABS: ALT/SGPT 60 U/L (12-78); AST/SGOT 32 U/L (15-37); Albumin 2.6 g/dL (3.4-5.0); Alkaline Phosphatase 51 U/L (45-117); BUN Blood Urea Nitrogen 28 mg/dL (7-18); Bicarbonate 24 mmol/L (21-32); Bilirubin Direct 0.2 mg/dL (0-0.2); Bilirubin Total 0.6 mg/dL (0.2-1.0); Glucose Level 141 mg/dL (74-106); Magnesium 2.2 mg/dL (1.8-2.4); NT PRO-BNP 566 pg/mL (<125); Potassium 4.4 mmol/L (3.5-5.1); Protein, Total 7.7 g/dL (6.4-8.2); Sodium Level 141 mmol/L (136-145); Troponin (Emerg Dept Use Only) < 0.02 ng/mL (0.0-0.045)
--- NOTE | 2021-07-11 17:42 | RAD REPORT ---
EXAM DESCRIPTION: RAD - Chest Single View - 07/11/2021 5:36 pm CLINICAL HISTORY: SOB COMPARISON: <Comparisons> FINDINGS: Lines: None. Lungs: Moderate patchy bilateral airspace disease. Pleural: No significant pleural effusions or pneumothorax. Cardiac: The heart size is within normal limits. Bones: No acute fractures. Other: IMPRESSION: Moderate bilateral airspace disease concerning for multifocal pneumonia, including Covid -19
[2021-07-11] MEDS ORDERED: NA CHLORIDE 0.9% 250 ML ONE (18:22)
[2021-07-11 19:00] LABS: Blood Morphology Comment NOT SEEN (NOT SEEN); Platelet Estimate ADEQ; White Blood Cell Scan OK (OK)
--- NOTE | 2021-07-11 19:49 | ER ---
Nurse's Notes [facility] Name: Stanley Iverson Jr Age: 55 yrs Sex: Male : 1965 Arrival Date: 07/11/2021 Time: 16:35 Bed 19 Private MD: Diagnosis: Pneumonia - Hypoxia Presentation: 07/11 16:25 Chief complaint: EMS states: Presents to ED via [facility], patient transferred from [facility] with chief c/o asthma exacerbation - O2 sat on room air is 68% - and 91% via non- re breather mask. Patient states SOB onset 2 days ago - unresponsive to albuterol inhaler at home. 16:25 Coronavirus screen: Vaccine status: Patient reports being unvaccinated. Ebola Screen: [facility] Patient negative for fever greater than or equal to 101.5 degrees Fahrenheit, and additional compatible Ebola Virus Disease symptoms Patient denies exposure to infectious person. Patient denies travel to an Ebola-affected area in the 21 days before illness onset. No symptoms or risks identified at this time. Initial Sepsis Screen: Does the patient meet any 2 criteria? No. Patient's initial sepsis screen is negative. Does the patient have a suspected source of infection? No. Patient's initial sepsis screen is negative. Risk Assessment: Do you want to hurt yourself or someone else? Patient reports no desire to harm self or others. Onset of symptoms was July 08, 2021. 16:25 Method Of Arrival: EMS: [facility] 16:25 Acuity: ALIDA 2 [facility] Triage Assessment: 16:57 General: Appears distressed, uncomfortable, well groomed, well developed, Behavior is sl2 calm, cooperative, appropriate for age. Pain: Denies pain. EENT: No deficits noted. Neuro: No deficits noted. Level of Consciousness is awake, alert, obeys commands, Oriented to person, place, time, situation, Appropriate for age. Cardiovascular: No deficits noted. Respiratory: Reports shortness of breath at rest Airway is patent Trachea midline Respiratory effort is even, unlabored, Respiratory pattern is tachypnea Breath sounds are diminished Breath sounds with wheezes bilaterally. GI: No deficits noted. : No deficits noted. No signs and/or symptoms were reported regarding the genitourinary system. Derm: No deficits noted. No signs and/or symptoms reported regarding the dermatologic system. Musculoskeletal: No deficits noted. No signs and/or symptoms reported regarding the musculoskeletal system. Historical: - Allergies: 16:57 No Known Allergies; sl2 - Home Meds: 16:57 albuterol sulfate 90 mcg/actuation Inhl HFAA 1 puff every 4-6 hours [Active]; metformin sl2 500 mg Oral tab 1 tab 2 times per day [Active]; - PMHx: 16:57 Asthma; Diabetes mellitus; sl2 - Immunization history:: Adult Immunizations up to date, Client reports having NOT received the Covid vaccine. - Social history:: Patient/guardian denies using alcohol, street drugs, IV drugs, caffeine, over the counter diet medications, tobacco products, Smoking status: unknown. Screenin:03 Abuse screen: Denies threats or abuse. Nutritional screening: No deficits noted. sl2 Tuberculosis screening: No symptoms or risk factors identified. Fall Risk None identified. No fall in past 12 months (0 pts). No secondary diagnosis (0 pts). IV access (20 points). Ambulatory Aid- None/Bed Rest/Nurse Assist (0 pts). Gait- Normal/Bed Rest/Wheelchair (0 pts) Mental Status- Oriented to own ability (0 pts). Assessment: 16:47 Reassessment: Pharmacy dept notified for delivery of magnesium 1 GM IV. sl2 17:03 Pain: Denies pain. sl2 17:31 Reassessment: CXR completed at bedside - Patient resting - O2 sat \T\ 94% on non-re sl2 breather mask, magnesium sulphate infusion in progress. Will continue to re-assess and monitor. 20:00 General: Appears in no apparent distress. Behavior is calm, cooperative. Pain: Denies cc4 pain. Neuro: Level of Consciousness is Sleeping; arouses easilly to verbal stimuli; voices no complaints; son sitting \T\ bedside.. Oriented to person, place, situation. Cardiovascular: No deficits noted. Rhythm is sinus rhythm. Respiratory: Airway is patent Respiratory effort is even, unlabored, Respiratory pattern is regular, symmetrical, O2 intact \T\ 15L/NRBFM; O2 sat 96%. Breath sounds are clear bilaterally. Breath sounds are diminished in left lower lobe and right lower lobe. GI: No signs and/or symptoms were reported involving the gastrointestinal system. : No signs and/or symptoms were reported regarding the genitourinary system. EENT: No deficits noted. No signs and/or symptoms were reported regarding the EENT system. Derm: No deficits noted. Skin is intact, is healthy with good turgor, # 20 g saline lock intact left AC with no s/sx's of infitration/infection. Musculoskeletal: No deficits noted. Capillary refill < 3 seconds, Range of motion: intact in all extremities. 21:08 Reassessment: Blood drawn per landscaping and groundskeeping laborer for blood cultures \T\ other labs per cc4 tol. thelma rosas. 22:00 Reassessment: Sleeping; no distress noted. cc4 23:00 Reassessment: Report telephoned to NADIR Mcintosh in ICU; transferred to ICU via stretcher cc4 with stop in CT with CT scan completed enroute to ICU, tol. renee. Vital Signs: 16:25 BP 103 / 63; Pulse 81; Resp 26; Temp 98.4; Pulse Ox 68% on R/A; sl2 16:57 BP 103 / 61; Pulse 81; Resp 26; Temp 98.4; Pulse Ox 68% on R/A; sl2 17:15 BP 115 / 63; Pulse 90; Resp 32; Temp 98.4; Pulse Ox 96% on Mask: Non-rebreather mask; sl2 18:46 BP 117 / 76; Pulse 76; Resp 20; Pulse Ox 98% on R/A; mh5 19:15 BP 114 / 63; Pulse 85; Resp 24; Pulse Ox 96% on Non-rebreather mask; sl2 20:00 BP 109 / 64; Pulse 75; Resp 26; Temp 97.5(T); Pulse Ox 100% on 15% Non-rebreather mask; cc4 21:00 BP 107 / 63; Pulse 73; Resp 26; Pulse Ox 100% on 15% Non-rebreather mask; cc4 22:53 BP 105 / 63; Pulse 58; Resp 26; Temp 96.6; Pulse Ox 97% on 15% Non-rebreather mask; cc4 23:00 BP 104 / 66; Pulse 55; Resp 24; Temp 96.6(T); Pulse Ox 96% on 15% Non-rebreather mask; cc4 ED Course: 16:35 Patient arrived in ED. bd 16:35 Mickail, Syed, PA is PHCP. [facility] 16:35 Kenny Luna MD is Attending Physician. [facility] 16:36 No provider procedures requiring assistance completed. Inserted saline lock: 20 gauge sl2 in left antecubital area, using aseptic technique. 16:41 Tenisha Yuan, NADIR is Primary Nurse. sl2 16:57 Triage completed. sl2 16:57 Arm band placed on right wrist. sl2 17:03 Patient has correct armband on for positive identification. Bed in low position. Call sl2 light in reach. Side rails up X2. 17:30 Initial lab(s) drawn, COVID swab sent to lab. sl2 17:35 XRAY Chest (1 view) In Process Unspecified. EDMS 18:44 EKG done, by ED staff, reviewed by Syed JUARES. [facility] 18:45 Warm blanket given. engine monitor on. Pulse ox on. NIBP on. 5 19:48 Julio C Mcdonald is Hospitalizing Provider. [facility] 23:00 Patient admitted, IV remains in place. cc4 07/12 04:04 Blood Culture Adult (2) Sent. cc4 Administered Medications: 07/11 16:46 Drug: SOLU-Medrol (methylPrednisoLONE) 125 mg Route: IVP; Site: left antecubital; 2 17:28 Follow up: Response: No adverse reaction 2 20:00 Follow up: Response: No adverse reaction cc4 16:52 Drug: Xopenex (levalbuterol) (3) 1.25 mg Route: Inhalation; 2 17:15 Follow up: BP 115 / 63; Pulse 90 bpm; Resp 32 bpm; Temp 98.4; Pulse Ox 96% Mask: 2 Non-rebreather mask 17:28 Follow up: Response: No adverse reaction 2 20:00 Follow up: Response: No adverse reaction; Wheezing diminished cc4 17:04 Drug: Magnesium Sulfate 1 grams Route: IVPB; Infused Over: 1 hrs; Site: left sl2 antecubital; 17:29 Follow up: Response: No adverse reaction 2 20:00 Follow up: Response: No adverse reaction cc4 Outcome: 19:48 Decision to Hospitalize by Provider. [facility] 23:00 Admitted to ICU cc4 23:00 Condition: stable 23:00 Instructed on the need for admit, Demonstrated understanding of instructions. 07/12 00:04 Patient left the ED. cc4 Signatures: Dispatcher [employer] EDMS Yamileth Sow Joel, PA PA jmm Martinez, Maria [facility] Florencia Louis, RN RN cc4 Tenisha Yuan RN RN sl2 Corrections: (The following items were deleted from the chart) 07/11 23:02 22:53 BP 210 / 061; Pulse 78bpm; Resp 26bpm; Pulse Ox 100% 02 15% Non-rebreather mask; cc4 cc4
--- NOTE | 2021-07-11 19:49 | EDPHYS ---
Physician Documentation [facility] Name: Stanley Iverson Jr Age: 55 yrs Sex: Male : 1965 Arrival Date: 07/11/2021 Time: 16:35 Bed 19 Private MD: ED Physician Kenny Luna HPI: 07/11 18:09 This 55 yrs old Male presents to ER via EMS with complaints of Syncope, short. jmm 18:09 Onset: The symptoms/episode began/occurred acutely, today. Duration: The symptoms are jmm continuous, and are steadily getting worse. The patient's shortness of breath is aggravated by nothing, is alleviated by inhaler, nebulizer treatment. Associated signs and symptoms: Pertinent positives: Syncope. This is a 55-year-old male with history of asthma diabetes mellitus the presents emerged department with complaints of shortness of breath which has been progressively worsening since this past Saturday. Patient states he had a syncopal episode just prior to arrival, came in EMS. EMS reports oxygen saturation around 60%. Historical: - Allergies: 16:57 No Known Allergies; sl2 - Home Meds: 16:57 albuterol sulfate 90 mcg/actuation Inhl HFAA 1 puff every 4-6 hours [Active]; metformin sl2 500 mg Oral tab 1 tab 2 times per day [Active]; - PMHx: 16:57 Asthma; Diabetes mellitus; sl2 - Immunization history:: Adult Immunizations up to date, Client reports having NOT received the Covid vaccine. - Social history:: Patient/guardian denies using alcohol, street drugs, IV drugs, caffeine, over the counter diet medications, tobacco products, Smoking status: unknown. ROS: 18:09 Constitutional: Negative for fever, chills, and weight loss, Cardiovascular: Negative jmm for chest pain, palpitations, and edema. 18:09 Respiratory: Positive for cough, shortness of breath. 18:09 Neuro: Positive for syncope. 18:09 All other systems are negative. Exam: 18:09 Constitutional: This is a well developed, well nourished patient who is awake, alert, jmm and in no acute distress. Head/Face: atraumatic. Eyes: EOMI, no conjunctival erythema appreciated ENT: Moist Mucus Membranes Neck: Trachea midline, Supple Chest/axilla: Normal chest wall appearance and motion. Cardiovascular: Regular rate and rhythm. No edema appreciated 18:09 Abdomen/GI: Non distended, soft Back: Normal ROM Skin: General appearance color normal MS/ Extremity: Moves all extremities, no obvious deformities appreciated, no edema noted to the lower extremities Neuro: Awake and alert, normal gait Psych: Behavior is normal, Mood is normal, Patient is cooperative and pleasant 18:09 Respiratory: moderate respiratory distress is noted, Respirations: labored breathing, Breath sounds: wheezing: that is moderate, is scattered. Vital Signs: 16:25 BP 103 / 63; Pulse 81; Resp 26; Temp 98.4; Pulse Ox 68% on R/A; sl2 16:57 BP 103 / 61; Pulse 81; Resp 26; Temp 98.4; Pulse Ox 68% on R/A; sl2 17:15 BP 115 / 63; Pulse 90; Resp 32; Temp 98.4; Pulse Ox 96% on Mask: Non-rebreather mask; sl2 18:46 BP 117 / 76; Pulse 76; Resp 20; Pulse Ox 98% on R/A; mh5 19:15 BP 114 / 63; Pulse 85; Resp 24; Pulse Ox 96% on Non-rebreather mask; sl2 20:00 BP 109 / 64; Pulse 75; Resp 26; Temp 97.5(T); Pulse Ox 100% on 15% Non-rebreather mask; cc4 21:00 BP 107 / 63; Pulse 73; Resp 26; Pulse Ox 100% on 15% Non-rebreather mask; cc4 22:53 BP 105 / 63; Pulse 58; Resp 26; Temp 96.6; Pulse Ox 97% on 15% Non-rebreather mask; cc4 23:00 BP 104 / 66; Pulse 55; Resp 24; Temp 96.6(T); Pulse Ox 96% on 15% Non-rebreather mask; cc4 MDM: 16:35 Patient medically screened. [email or web address] 19:46 Data reviewed: vital signs, nurses notes. Counseling: I had a detailed discussion with zuleyka the patient and/or guardian regarding: the historical points, exam findings, and any diagnostic results supporting the discharge/admit diagnosis, lab results, radiology results, the need for further work-up and treatment in the hospital. ED course: I discussed the patient with Anam Skaggs whom accepted the patient to Dr. Mcdonald's service. . 07/11 16:35 Order name: Basic Metabolic Panel; Complete Time: 17:44 [facility] 07/11 16:35 Order name: CBC with Diff; Complete Time: 19:28 [facility] 07/11 16:35 Order name: LFT's; Complete Time: 17:44 [facility] 07/11 16:35 Order name: Magnesium; Complete Time: 17:44 [facility] 07/11 16:35 Order name: NT PRO-BNP; Complete Time: 17:44 [facility] 07/11 16:35 Order name: PT-INR; Complete Time: 17:44 [facility] 07/11 16:35 Order name: Troponin (emerg Dept Use Only); Complete Time: 17:44 [facility] 07/11 16:35 Order name: XRAY Chest (1 view); Complete Time: 17:44 [facility] 07/11 16:37 Order name: SARS-COV-2 RT PCR (Document "Date of Onset" if Symptomatic); Complete Time: [facility] 20:56 07/11 19:00 Order name: CBC Smear Scan; Complete Time: 19:28 [facility] 07/11 19:02 Order name: Blood Culture Adult (2) [facility] 07/11 19:02 Order name: Procalcitonin; Complete Time: 21:22 [facility] 07/11 19:02 Order name: Lactate; Complete Time: 21:13 [facility] 07/11 23:47 Order name: Lactate Sepsis 2 HR Follow-up; Complete Time: 23:57 [facility] 07/11 16:35 Order name: EKG; Complete Time: 16:36 [facility] 07/11 16:35 Order name: Cardiac monitoring; Complete Time: 16:42 [facility] 07/11 16:35 Order name: EKG - Nurse/Tech; Complete Time: 18:44 [facility] 07/11 16:35 Order name: IV Saline Lock; Complete Time: 16:42 [facility] 07/11 16:35 Order name: Labs collected and sent; Complete Time: 16:42 [facility] 07/11 16:35 Order name: O2 Per Protocol; Complete Time: 16:42 [facility] 07/11 16:35 Order name: O2 Sat Monitoring; Complete Time: 16:42 [facility] 07/11 20:49 Order name: CONS Physician Consult; Complete Time: 04:03 EDMS Administered Medications: 16:46 Drug: SOLU-Medrol (methylPrednisoLONE) 125 mg Route: IVP; Site: left antecubital; sl2 17:28 Follow up: Response: No adverse reaction sl2 20:00 Follow up: Response: No adverse reaction cc4 16:52 Drug: Xopenex (levalbuterol) (3) 1.25 mg Route: Inhalation; sl2 17:15 Follow up: BP 115 / 63; Pulse 90 bpm; Resp 32 bpm; Temp 98.4; Pulse Ox 96% Mask: sl2 Non-rebreather mask 17:28 Follow up: Response: No adverse reaction sl2 20:00 Follow up: Response: No adverse reaction; Wheezing diminished cc4 17:04 Drug: Magnesium Sulfate 1 grams Route: IVPB; Infused Over: 1 hrs; Site: left sl2 antecubital; 17:29 Follow up: Response: No adverse reaction sl2 20:00 Follow up: Response: No adverse reaction cc4 Disposition: 07/12 07:07 Co-signature as Attending Physician, Kenny Luna MD I agree with the assessment and rn plan of care. Attestation: The patient's history, exam findings, diagnostics, and a summary of any interventions or procedures was reviewed in detail with Syed JUARES. Disposition Summary: 07/11/21 19:48 Hospitalization Ordered Hospitalization Status: Inpatient Admission [facility] Provider: Julio C Mcdonald Condition: Stable jm Problem: new jmm Symptoms: are unchanged jmm Bed/Room Type: Standard [facility] Location: Intensive Care Unit(07/11/21 20:51) Room Assignment: 1-(07/11/21 20:51) Diagnosis - Pneumonia - Hypoxia jm Forms: - Medication Reconciliation Form jmm - SBAR form jm Signatures: Dispatcher [employer] EDMS Syed Glover PA PA jmm Nieto, Roman, MD MD rn Garcia, Cindy, RN RN Anam Schofield PA PA ej Cooper, Christie, RN RN cc4 Tenisha Yuan RN RN sl2 Corrections: (The following items were deleted from the chart) 07/11 20:51 19:48 Telemetry/MedSurg (Inpatient) [facility] 20:51 19:48 [facility] cg
--- NOTE | 2021-07-11 22:47 | P.HP ---
Certification for Inpatient Patient admitted to: Inpatient With expected LOS: >2 Midnights Patient will require the following post-hospital care: None Practitioner: I am a practitioner with admitting privileges, knowledge of patient current condition, hospital course, and medical plan of care. Services: Services provided to patient in accordance with Admission requirements found in Title 42 Section 412.3 of the Code of Federal Regulations Patient History Date of Service: 07/11/21 Reason for admission: covid pneumonia History of Present Illness: Mr. Iverson is a 55 yo M with DM and asthma who presents after syncopal episode and hypoxia. Since Saturday, he has had cough, SOB, [place], wheezing, night sweats and malaise. He thought he was having an asthma exacerbation and was having mild relief of symptoms with albuterol inhaler and nebs. Today, he went to go to the bathroom and then remembers waking up on the floor. His son called the ambulance. EMS reports sats of 68% on RA upon arrival, increased to 91% on NRB. Patient has had poor appetite and fluid intake. Denies N/V/D. COVID + in the ED. Patient expressed he is okay with intubation as a last resort if it comes to that point. Son expressed that his mom does not want patient on a ventilator at all after what she has seen on the news. Patient is currently AOx4 and capable of making own medical decisions. Explained that intubation is a last resort anyways. Family will likely need extensive education surrounding intubation in the event patient's status worsens. WBC 12.1 BUN 28 GFR 74 BNP 766 Glu 141 Lactate 2.2 CXR IMPRESSION: Moderate bilateral airspace disease concerning for multifocal pneumonia, including Covid-19 Allergies No Known Allergies Allergy (Unverified 07/11/21 22:20) - Past Medical/Surgical History Diabetic: Yes -: T2DM -: asthma -: joan -: appy -: knee surgery -: throat surgery Psychosocial/ Personal History: - Social History Smoking Status: Never smoker Alcohol use: No CD- Drugs: No Caffeine use: No Place of Residence: Home Review of Systems 10-point ROS is otherwise unremarkable General: Sweats, Malaise, As per HPI Eyes: Unremarkable ENT: Unremarkable Respiratory: Cough, Shortness of Breath, SOB with Excertion, Wheezing, As per HPI Cardiovascular: Unremarkable Gastrointestinal: Unremarkable Genitourinary: Unremarkable Musculoskeletal: Unremarkable Integumentary: Unremarkable Neurological: Unremarkable Lymphatics: Unremarkable Physical Examination - Physical Exam General: Alert, In no apparent distress HEENT: Atraumatic, PERRLA, Mucous membr. moist/pink, EOMI, Sclerae nonicteric Neck: Supple, 2+ carotid pulse no bruit, No LAD, Without JVD or thyroid abnormality Respiratory: Diminished, Rhonchi/gurgles Cardiovascular: Regular rate/rhythm, Normal S1 S2 Gastrointestinal: Normal bowel sounds, No tenderness Musculoskeletal: No tenderness Integumentary: No rashes Neurological: Normal strength at 5/5 x4 extr, Normal tone, Normal affect, Abnormal speech Lymphatics: No axilla or inguinal lymphadenopathy - Studies Laboratory Data (last 24 hrs) 07/11/21 16:40: PT 15.3 H, INR 1.33 07/11/21 16:40: WBC 12.10 H, Hgb 14.4, Hct 43.4, Plt Count 381 07/11/21 16:40: Sodium 141, Potassium 4.4, BUN 28 H, Creatinine 1.03, Glucose 141 H, Magnesium 2.2, Total Bilirubin 0.6, AST 32, ALT 60, Alkaline Phosphatase 51 Assessment and Plan - Problems (Diagnosis) (1) Pneumonia due to COVID-19 virus Current Visit: Yes Status: Acute (2) Hypoxia Current Visit: Yes Status: Acute (3) T2DM (type 2 diabetes mellitus) Current Visit: Yes Status: Chronic Qualifiers: Diabetes mellitus long wall mining machine helper insulin use: without long wall mining machine helper use Diabetes mellitus complication status: without complication Qualified Code(s): E11.9 - Type 2 diabetes mellitus without complications (4) Asthma Current Visit: Yes Status: Chronic Qualifiers: Asthma severity: mild Asthma persistence: intermittent Asthma complication type: with acute exacerbation Qualified Code(s): J45.21 - Mild intermittent asthma with (acute) exacerbation - Plan pulm consulted, RT consulted continue covid supplements, IV steroids, Ivermectin daily CRP, ferriting, procal saturations for home O2, room air saturations CTPE pending, continue DVT ppx sliding scale insulin and accuchecks breathing treatments as needed Discharge Plan: Home Plan to discharge in: Greater than 2 days - Advance Directives Does patient have a Living Will: No Does patient have a Durable POA for Healthcare: No - Code Status/Comfort Care Code Status Assessed: Yes (full code ) Critical Care: No Time Spent Managing Pts Care (In Minutes): 70
[2021-07-11] MEDS ORDERED: IVERMECTIN 3 MG TABLET PO SCH (23:30)
[2021-07-11] MEDS ORDERED: ALBUTEROL 2.5 MG/3 ML NEB SOL NEB PRN (23:30)
[2021-07-11] MEDS ORDERED: ALBUTEROL INHALER 60 PUFF/8 GM IH PRN (23:30)
[2021-07-11] MEDS ORDERED: IPRATROPIUM BROM 0.5MG/2.5ML NEB PRN (23:30)
[2021-07-11] MEDS ORDERED: ONDANSETRON 4 MG/2 ML VIAL IV PRN (23:30)
[2021-07-11] MEDS ORDERED: ACETAMINOPHEN 500 MG TAB PO PRN (23:30)
[2021-07-11] MEDS: METHYLPREDNISOLONE 125 MG INJ IV SCH (23:30)
[2021-07-11] MEDS ORDERED: MORPHINE 2 MG/ML SYR IV PRN (23:30)
[2021-07-12 00:11] LABS: C-Reactive Protein 98.9 mg/L (<3.00); Ferritin 560.9 ng/mL (26-388)
[2021-07-12] MEDS: MELATONIN 5 MG TABLET PO PRN ×2 (00:23→20:36)
[2021-07-12] MEDS: BENZONATATE 100 MG CAP PO PRN ×3 (00:23→20:36)
[2021-07-12] MEDS: ASCORBIC ACID 500 MG TABLET PO SCH ×5 (00:23→20:36)
[2021-07-12] MEDS: FAMOTIDINE 20 MG TAB PO SCH ×3 (00:23→20:36)
[2021-07-12] MEDS: INSULIN -REGULAR HUMAN 50 UNIT/0.5 ML ML SQ SCH ×5 (00:33→20:38)
[2021-07-12 01:51] LABS: Urine Appearance Clear (Clear); Urine Blood Negative (Negative); Urine Color Yellow (Yellow); Urine Glucose Trace (Negative); Urine Protein 1+ (Negative); Urine Specific Gravity 1.025 (1.005-1.030)
[2021-07-12 01:52] LABS: Urine Microscopic Reflex ORDER UMIC
[2021-07-12 01:58] LABS: Urine Bilirubin 1+ (Negative)
[2021-07-12 02:52] LABS: Urine Bacteria 20-50 /HPF (NONE SEEN); Urine RBC <5 /HPF (NONE SEEN)
[2021-07-12] MEDS ORDERED: NA CHLORIDE 0.9% 1,000 ML IV SCH (03:00)
[2021-07-12 04:57] LABS: Absolute Lymphocytes (CBC) 0.4 K/uL (0.7-4.9); Hematocrit 41.6 % (39.6-49.0); Lymphocytes % 4.6 % (15.3-44.8); MPV 7.2 fL (7.6-11.3); RBC Red Blood Cell Count 4.95 M/uL (4.33-5.43)
[2021-07-12 05:20] LABS: ALT/SGPT 50 U/L (12-78); AST/SGOT 21 U/L (15-37); Albumin 2.2 g/dL (3.4-5.0); Alkaline Phosphatase 50 U/L (45-117); BUN Blood Urea Nitrogen 27 mg/dL (7-18); Bicarbonate 24 mmol/L (21-32); Bilirubin Total 0.5 mg/dL (0.2-1.0); Glucose Level 244 mg/dL (74-106); HDL Cholesterol 22 mg/dL (40-60); LDL Cholesterol, Calculated 110 (<130); Magnesium 2.5 mg/dL (1.8-2.4); Phosphorus 3.5 mg/dL (2.5-4.9); Potassium 4.3 mmol/L (3.5-5.1); Protein, Total 6.9 g/dL (6.4-8.2); Sodium Level 139 mmol/L (136-145); Thyroid Stimulating Hormone 0.186 uIU/mL (0.360-3.740)
[2021-07-12] MEDS: METHYLPREDNISOLONE 125 MG INJ IV SCH ×2 (08:21→20:36)
[2021-07-12] MEDS: BARICITINIB 2 MG TABLET PO SCH (08:22)
[2021-07-12] MEDS: VITAMIN D 1000 UNIT TAB PO SCH (08:23)
[2021-07-12] MEDS: THIAMINE HCL 100 MG TABLET PO SCH (08:23)
[2021-07-12] MEDS: ASPIRIN EC 81 MG TAB PO SCH (08:24)
[2021-07-12] MEDS: ZINC SULFATE 220 MG CAP PO SCH (08:24)
--- NOTE | 2021-07-12 11:33 | P.CNS ---
Date of Consult: 07/12/21 Chief Complaint: covid pneumonia History of Present Illness: Patient is 55 years of age wheezy of diabetes asthma got worse since Saturday started complaining of cough shortness of breath admitted with santos virus pneumonia was hypoxic on arrival currently doing better reason nasal cannula oxygen history of asthma Allergies No Known Allergies Allergy (Verified 07/12/21 01:26) Home Medications: NK [No Home Meds] 07/12/21 - Past Medical/Surgical History Diabetic: Yes -: T2DM -: asthma -: joan -: appy -: knee surgery -: throat surgery Psychosocial/ Personal History: - Family History Father Medical History: Cancer - Social History Alcohol use: No CD- Drugs: No Caffeine use: No Place of Residence: Home Review of Systems General: Weakness Respiratory: Cough, Shortness of Breath Physical Examination Temp Pulse Resp BP Pulse Ox 98.5 F 72 17 113/73 91 07/12/21 08:00 07/12/21 08:00 07/12/21 08:00 07/12/21 08:00 07/12/21 08:00 General: Alert, Oriented x3, Mild distress Laboratory Data (last 24 hrs) 07/11/21 16:40: PT 15.3 H, INR 1.33 07/11/21 16:40: WBC 12.10 H, Hgb 14.4, Hct 43.4, Plt Count 381 07/11/21 16:40: Sodium 141, Potassium 4.4, BUN 28 H, Creatinine 1.03, Glucose 141 H, Magnesium 2.2, Total Bilirubin 0.6, AST 32, ALT 60, Alkaline Phosphatase 51 - Problems (1) Pneumonia due to COVID-19 virus Current Visit: Yes Status: Acute Plan: Patient is 55 years of age admitted with santos virus pneumonia CT scan shows severe santos virus pneumonia bilateral pneumonia he is improved continue with steroids and Barcitinib vital signs stable Dc IV is not down to 5-7 L
--- NOTE | 2021-07-12 12:11 | P.PN ---
Subjective Date of Service: 07/12/21 Chief Complaint: covid pneumonia Patient now requiring 8 L of oxygen by nasal cannula. He is complaining of shortness of breath and fatigue. Physical Examination - Vital Signs Temperature: 98.5 F Blood Pressure: 113/73 Pulse: 72 Respirations: 17 Pulse Ox (%): 91 - Physical Exam General: Alert, Mild distress HEENT: Mucous membr. moist/pink, Other (Oxygen by nasal cannula) Neck: Supple, JVD not distended Respiratory: Other (Bilateral lower lobe crackles) Cardiovascular: No edema, Regular rate/rhythm, Normal S1 S2 Gastrointestinal: Normal bowel sounds, Soft and benign, Non-distended Musculoskeletal: No swelling Integumentary: No rashes, No erythema, No cyanosis Neurological: Normal strength at 5/5 x4 extr, Cranial nerves 3-12 intact - Studies Laboratory Data (last 24 hrs) 07/11/21 16:40: PT 15.3 H, INR 1.33 07/11/21 16:40: WBC 12.10 H, Hgb 14.4, Hct 43.4, Plt Count 381 07/11/21 16:40: Sodium 141, Potassium 4.4, BUN 28 H, Creatinine 1.03, Glucose 141 H, Magnesium 2.2, Total Bilirubin 0.6, AST 32, ALT 60, Alkaline Phosphatase 51 Assessment And Plan - Current Problems (Diagnosis) (1) Acute respiratory failure with hypoxia Current Visit: Yes Status: Acute (2) Pneumonia due to COVID-19 virus Current Visit: Yes Status: Acute (3) Asthma Current Visit: Yes Status: Chronic Qualifiers: Asthma severity: mild Asthma persistence: intermittent Asthma complication type: with acute exacerbation Qualified Code(s): J45.21 - Mild intermittent asthma with (acute) exacerbation (4) T2DM (type 2 diabetes mellitus) Current Visit: Yes Status: Chronic Qualifiers: Diabetes mellitus trap setter insulin use: without care home use Diabetes mellitus complication status: without complication Qualified Code(s): E11.9 - Type 2 diabetes mellitus without complications - Plan COVID-19 protocol initiated with IV steroid, vitamin supplementation. Pulmonary-Dr. Khan input appreciated. Patient started on baricitinib. Titrate oxygen. Monitor CBC and inflammatory markers. He is on Xarelto for DVT prophylaxis. Insulin sliding scale for glucose management.
[2021-07-12] MEDS ORDERED: D50W 25 GM/50 ML SYRINGE IV PRN (12:14)
[2021-07-12] MEDS ORDERED: GLUCAGON 1 MG/VIAL IM PRN (12:14)
--- NOTE | 2021-07-12 12:51 | RAD REPORT ---
EXAM DESCRIPTION: CT - Chest For Pe Angio - 07/12/2021 1:51 am CLINICAL HISTORY: The patient is 55 years old and is Male; covid pneumonia TECHNIQUE: Axial computed tomographic angiography images of the chest with intravenous contrast. S agittal and coronal reformatted images were created and reviewed. This CT exam was performed using one or more of the following dose reduction techniques: automated exposure control, adjustment of t he mA and/or kV according to patient size, and/or use of iterative reconstruction technique. MIP reconstructed images were created and reviewed. COMPARISON: No relevant prior studies available. FINDINGS: ARTIFACTS: The exam is suboptimal secondary to motion artifact. PULMONARY ARTERIES: There are no obvious filling defects identified within the pulmonary arterie s to suggest pulmonary embolism. AORTA: No acute findings. No thoracic aortic aneurysm. LUNGS: Extensive patchy groundglass opacities are noted throughout the lungs. PLEURAL SPACE: Unremarkable. No significant effusion. No pneumothorax. HEART: Unremarkable. No cardiomegaly. No significant pericardial effusion. No evidence of RV dysfunction. MEDIASTINUM: The tracheobronchial tree is widely patent. BONES/JOINTS: No acute fracture. No dislocation. SOFT TISSUES: Unremarkable. LYMPH NODES: Unremarkable. No enlarged lymph nodes. IMPRESSION: 1. Extensive groundglass infiltrates. Commonly reported imaging features of (COVID-1 9 or viral) pneumonia are present. Other processes such as influenza pneumonia and organizing pneumon ia, as can be seen with drug toxicity and connective tissue disease, can cause a similar imaging dharmesh wellington. [id number] 2. No evidence of pulmonary embolism. Electronically signed by: Christa Rose MD 07/12/2021 1:45 AM TECHNICAL PROGRAMS MANAGER Due to temporary technical issues with the PACS/Fluency reporting system, reports are being signed by the in house radiologist without review as a courtesy to ensure prompt reporting. The interpreting r adiologist is fully responsible for the content of the report.
--- NOTE | 2021-07-12 16:59 | EKG ---
Test Date: 2021-07-11 Test Time: 16:50:46 Manager Finance: SHANICE MEASUREMENT RESULTS: Intervals: Rate: 73 TX: 134 QRSD: 84 QT: 414 QTc: 456 Radiant: P: 30 TX: 134 QRS: 13 T: 14 INTERPRETIVE STATEMENTS: Normal sinus rhythm Normal ECG No previous ECG available for comparison Electronically Signed On 07-12-21 16:57:06 SECURITIES COUNSELOR by Philip Kent
[2021-07-12] MEDS ORDERED: RIVAROXABAN 10 MG TABLET PO SCH (17:00)
[2021-07-12] MEDS: RIVAROXABAN 10 MG TABLET PO SCH (17:37)
[2021-07-12] MEDS: INSULIN GLARGINE 100 UNIT/ML SQ SCH (21:00)
[2021-07-13 04:57] LABS: Absolute Lymphocytes (CBC) 0.5 K/uL (0.7-4.9); Basophils % 0.1 % (0-1.3); Hematocrit 39.9 % (39.6-49.0); Lymphocytes % 4.5 % (15.3-44.8); MPV 7.5 fL (7.6-11.3)
[2021-07-13 05:47] LABS: ALT/SGPT 51 U/L (12-78); AST/SGOT 18 U/L (15-37); Albumin 2.1 g/dL (3.4-5.0); Alkaline Phosphatase 46 U/L (45-117); BUN Blood Urea Nitrogen 30 mg/dL (7-18); Bicarbonate 24 mmol/L (21-32); Bilirubin Total 0.4 mg/dL (0.2-1.0); Glucose Level 201 mg/dL (74-106); Magnesium 2.4 mg/dL (1.8-2.4); Phosphorus 3.5 mg/dL (2.5-4.9); Potassium 4.3 mmol/L (3.5-5.1); Protein, Total 6.8 g/dL (6.4-8.2); Sodium Level 140 mmol/L (136-145)
[2021-07-13] MEDS: VITAMIN D 1000 UNIT TAB PO SCH (08:36)
[2021-07-13] MEDS: ASPIRIN EC 81 MG TAB PO SCH (08:36)
[2021-07-13] MEDS: ZINC SULFATE 220 MG CAP PO SCH (08:36)
[2021-07-13] MEDS: THIAMINE HCL 100 MG TABLET PO SCH (08:36)
[2021-07-13] MEDS: METHYLPREDNISOLONE 125 MG INJ IV SCH ×2 (08:36→20:03)
[2021-07-13] MEDS: ASCORBIC ACID 500 MG TABLET PO SCH ×2 (08:36→11:57)
[2021-07-13] MEDS: FAMOTIDINE 20 MG TAB PO SCH (08:36)
[2021-07-13] MEDS: BARICITINIB 2 MG TABLET PO SCH (08:37)
[2021-07-13] MEDS: INSULIN -REGULAR HUMAN 50 UNIT/0.5 ML ML SQ SCH ×4 (08:37→20:03)
--- NOTE | 2021-07-13 10:58 | P.PN ---
Subjective Date of Service: 07/13/21 Chief Complaint: covid pneumonia Bradycardia status improved today. Oxygen weaned down to 5 L by nasal cannula. He has no new complaint. Physical Examination - Vital Signs Temperature: 98 F Blood Pressure: 122/73 Pulse: 43 Respirations: 23 Pulse Ox (%): 93 Assessment And Plan - Current Problems (Diagnosis) (1) Acute respiratory failure with hypoxia Current Visit: Yes Status: Acute (2) Pneumonia due to COVID-19 virus Current Visit: Yes Status: Acute (3) Asthma Current Visit: Yes Status: Chronic Qualifiers: Asthma severity: mild Asthma persistence: intermittent Asthma complication type: with acute exacerbation Qualified Code(s): J45.21 - Mild intermittent asthma with (acute) exacerbation (4) T2DM (type 2 diabetes mellitus) Current Visit: Yes Status: Chronic Qualifiers: Diabetes mellitus usp insulin use: without long term acute care registered nurse use Diabetes mellitus complication status: without complication Qualified Code(s): E11.9 - Type 2 diabetes mellitus without complications - Plan Physical exam: General: Alert, NAD HEENT: Mucous membr. moist/pink. Neck: Supple, JVD not distended Respiratory: Bilateral lower lobe crackles, nonlabored breathing. Cardiovascular: No edema, Regular rate/rhythm, Normal S1 S2 Gastrointestinal: Normal bowel sounds, Soft and benign, Non-distended Musculoskeletal: No swelling Integumentary: No rashes, No erythema, No cyanosis Neurological: Normal strength at 5/5 x4 extr, Cranial nerves 3-12 intact Plan He is clinically improving. Continue IV steroid, vitamin supplementation. Pulmonary-Dr. Khan is following Continue baricitinib. Wean oxygen as tolerated. Incentive spirometer Monitor CBC and inflammatory markers. He is on Xarelto for DVT prophylaxis. Insulin sliding scale for glucose management.
--- NOTE | 2021-07-13 12:16 | P.PN ---
Subjective Date of Service: 07/13/21 Chief Complaint: covid pneumonia Oxygen requirements around 40% he is a little drowsy Review of Systems General: Weakness Respiratory: Shortness of Breath Physical Examination - Vital Signs Temperature: 98 F Blood Pressure: 122/73 Pulse: 43 Respirations: 23 Pulse Ox (%): 93 - Physical Exam General: Alert, Cooperative Assessment & Plan - Problems (Diagnosis) (1) Pneumonia due to COVID-19 virus Current Visit: Yes Status: Acute Plan: Respiratory failure continue with present therapy only on 4 L nasal cannula oxygen patient is on Barcitinib and steroid Dc melatonin
[2021-07-13] MEDS: RIVAROXABAN 10 MG TABLET PO SCH (17:10)
[2021-07-13] MEDS: INSULIN GLARGINE 100 UNIT/ML SQ SCH (20:04)
[2021-07-14 05:24] LABS: Absolute Lymphocytes (CBC) 0.4 K/uL (0.7-4.9); Basophils % 0.2 % (0-1.3); Hematocrit 42.9 % (39.6-49.0); Lymphocytes % 3.9 % (15.3-44.8); MPV 7.7 fL (7.6-11.3); RBC Red Blood Cell Count 5.08 M/uL (4.33-5.43)
[2021-07-14 05:41] LABS: ALT/SGPT 78 U/L (12-78); AST/SGOT 31 U/L (15-37); Albumin 2.1 g/dL (3.4-5.0); Alkaline Phosphatase 47 U/L (45-117); BUN Blood Urea Nitrogen 29 mg/dL (7-18); Bicarbonate 22 mmol/L (21-32); Bilirubin Total 0.5 mg/dL (0.2-1.0); Glucose Level 228 mg/dL (74-106); Magnesium 2.3 mg/dL (1.8-2.4); Potassium 4.3 mmol/L (3.5-5.1); Protein, Total 6.8 g/dL (6.4-8.2); Sodium Level 139 mmol/L (136-145)
[2021-07-14 07:51] LABS: Blood Morphology Comment NOT SEEN (NOT SEEN); Platelet Estimate ADEQ
[2021-07-14] MEDS: BARICITINIB 2 MG TABLET PO SCH (08:23)
[2021-07-14] MEDS: FAMOTIDINE 20 MG TAB PO SCH (08:23)
[2021-07-14] MEDS: INSULIN -REGULAR HUMAN 50 UNIT/0.5 ML ML SQ SCH ×4 (08:23→20:26)
[2021-07-14] MEDS: THIAMINE HCL 100 MG TABLET PO SCH (08:24)
[2021-07-14] MEDS: METHYLPREDNISOLONE 125 MG INJ IV SCH ×2 (08:24→20:27)
[2021-07-14] MEDS: VITAMIN D 1000 UNIT TAB PO SCH (08:24)
[2021-07-14] MEDS: ASPIRIN EC 81 MG TAB PO SCH (08:24)
--- NOTE | 2021-07-14 10:38 | P.PN ---
Subjective Date of Service: 07/14/21 Chief Complaint: covid pneumonia Patient states he is feeling much better today. Oxygen weaned down to 4 L. He has no new complaint. Physical Examination - Vital Signs Temperature: 97.3 F Blood Pressure: 115/74 Pulse: 56 Respirations: 56 Pulse Ox (%): 93 Assessment And Plan - Current Problems (Diagnosis) (1) Acute respiratory failure with hypoxia Current Visit: Yes Status: Acute (2) Pneumonia due to COVID-19 virus Current Visit: Yes Status: Acute (3) Asthma Current Visit: Yes Status: Chronic Qualifiers: Asthma severity: mild Asthma persistence: intermittent Asthma complication type: with acute exacerbation Qualified Code(s): J45.21 - Mild intermittent asthma with (acute) exacerbation (4) T2DM (type 2 diabetes mellitus) Current Visit: Yes Status: Chronic Qualifiers: Diabetes mellitus correction insulin use: without termite control service representative use Diabetes mellitus complication status: without complication Qualified Code(s): E11.9 - Type 2 diabetes mellitus without complications - Plan Physical exam: General: Alert, NAD HEENT: Oxygen by nasal cannula Neck: Supple, JVD not distended Respiratory: Nonlabored breathing. Cardiovascular: No edema, Regular rate/rhythm, Normal S1 S2 Gastrointestinal: Normal bowel sounds, Soft and benign, Non-distended Musculoskeletal: No swelling Integumentary: No rashes, No erythema, No cyanosis Neurological: No focal neurologic deficit. Plan He is clinically improving. Continue IV steroid, vitamin supplementation. Pulmonary-Dr. Khan is following Continue baricitinib. Oxygen weaned down to 4 L Incentive spirometry Monitor CBC and inflammatory markers. He is on Xarelto for DVT prophylaxis. Insulin sliding scale for glucose management. Arrange for home oxygen Possible discharge within 1 to 2 days if he continues to wean oxygen.
--- NOTE | 2021-07-14 11:56 | P.PN ---
Subjective Date of Service: 07/14/21 Chief Complaint: covid pneumonia Patient is improving patient is improving oxygen requirements weaned down to 4 L Review of Systems General: Weakness Respiratory: Shortness of Breath Physical Examination - Vital Signs Temperature: 97.3 F Blood Pressure: 115/74 Pulse: 56 Respirations: 56 Pulse Ox (%): 93 - Physical Exam General: Alert, Oriented x2, Cooperative Assessment & Plan - Problems (Diagnosis) (1) Pneumonia due to COVID-19 virus Current Visit: Yes Status: Acute Plan: Patient is improving patient is improving on 4 L of nasal cannula oxygen labs reviewed labs reviewed hopefully plan for discharge
[2021-07-14] MEDS: RIVAROXABAN 10 MG TABLET PO SCH (16:36)
[2021-07-14] MEDS: INSULIN GLARGINE 100 UNIT/ML SQ SCH (20:27)
[2021-07-15 05:04] LABS: Absolute Lymphocytes (CBC) 0.3 K/uL (0.7-4.9); Basophils % 1.3 % (0-1.3); Lymphocytes % 2.9 % (15.3-44.8); MPV 7.6 fL (7.6-11.3); RBC Red Blood Cell Count 5.31 M/uL (4.33-5.43)
[2021-07-15 05:23] LABS: ALT/SGPT 123 U/L (12-78); AST/SGOT 42 U/L (15-37); Albumin 2.3 g/dL (3.4-5.0); Alkaline Phosphatase 47 U/L (45-117); BUN Blood Urea Nitrogen 27 mg/dL (7-18); Bicarbonate 25 mmol/L (21-32); Bilirubin Total 0.5 mg/dL (0.2-1.0); Ferritin 545.6 ng/mL (26-388); Glucose Level 178 mg/dL (74-106); Magnesium 2.4 mg/dL (1.8-2.4); Phosphorus 4.3 mg/dL (2.5-4.9); Potassium 4.4 mmol/L (3.5-5.1); Sodium Level 138 mmol/L (136-145)
[2021-07-15] MEDS: INSULIN -REGULAR HUMAN 50 UNIT/0.5 ML ML SQ SCH ×4 (07:30→20:18)
[2021-07-15] MEDS: THIAMINE HCL 100 MG TABLET PO SCH (08:42)
[2021-07-15] MEDS: ASPIRIN EC 81 MG TAB PO SCH (08:42)
[2021-07-15] MEDS: FAMOTIDINE 20 MG TAB PO SCH (08:42)
[2021-07-15] MEDS: BARICITINIB 2 MG TABLET PO SCH (08:43)
[2021-07-15] MEDS: VITAMIN D 1000 UNIT TAB PO SCH (08:43)
[2021-07-15] MEDS: METHYLPREDNISOLONE 125 MG INJ IV SCH ×2 (08:43→20:29)
--- NOTE | 2021-07-15 11:14 | P.DS ---
Admission Date: 07/11/21 Discharge Date: 07/17/21 Disposition: ROUTINE DISCHARGE Discharge Condition: FAIR Reason for Admission: covid pneumonia - Problems (1) Acute respiratory failure with hypoxia Current Visit: Yes Status: Acute (2) Pneumonia due to COVID-19 virus Current Visit: Yes Status: Acute (3) Asthma Current Visit: Yes Status: Chronic Qualifiers: Asthma severity: mild Asthma persistence: intermittent Asthma complication type: with acute exacerbation Qualified Code(s): J45.21 - Mild intermittent asthma with (acute) exacerbation (4) T2DM (type 2 diabetes mellitus) Current Visit: Yes Status: Chronic Qualifiers: Diabetes mellitus jail insulin use: without jail use Diabetes mellitus complication status: without complication Qualified Code(s): E11.9 - Type 2 diabetes mellitus without complications Brief History of Present Illness: Mr. Iverson is a 55 yo M with DM and asthma who presents after syncopal episode and hypoxia. Patient report cough, SOB, [place], wheezing, night sweats and malaise. He thought he was having an asthma exacerbation and was having mild relief of symptoms with albuterol inhaler and nebs. He went to the bathroom and then remembers waking up on the floor. His son called the ambulance. EMS reported sats of 68% on RA upon arrival, increased to 91% on NRB. COVID + in the ED. CXR IMPRESSION: Moderate bilateral airspace disease concerning for multifocal pneumonia, including Covid-19. Patient requiring high flow oxygen in the ED. He was admitted for further management. Hospital Course: Noted to the medical floor and Covid protocol initiated with IV steroids, vitamin supplementation, and zinc supplementation. He was also placed on low- dose Xarelto for DVT prophylaxis. Patient was initially requiring up to 10 L of oxygen by nasal cannula but his clinical condition improved and oxygen weaned down to 3 L. He ambulated with 3 to 4 L of oxygen by nasal cannula without difficulty or shortness of breath. He was treated briefly with baricitinib. Blood sugar was moderately elevated this was managed with 10 units Lantus insulin. Patient clinically stable for discharge. He is discharged with home oxygen. He is also prescribed Metformin for blood sugar management. He is prescribed prednisone taper to continue treatment per COVID protocol. Vital Signs/Physical Exam: Temp Pulse Resp BP Pulse Ox 97.5 F 54 17 119/75 93 07/15/21 08:00 07/15/21 08:00 07/15/21 08:00 07/15/21 08:00 07/15/21 08:00 General: Alert, In no apparent distress, Oriented x3 HEENT: Mucous membr. moist/pink Respiratory: Other (Nonlabored breathing) Cardiovascular: No edema, Regular rate/rhythm, Normal S1 S2 Gastrointestinal: Soft and benign, Non-distended Musculoskeletal: No swelling Integumentary: No rashes Neurological: Normal strength at 5/5 x4 extr Laboratory Data at Discharge: WBC 10.20 K/uL (4.3-10.9) 07/15/21 04:24 Hgb 15.2 g/dL (13.6-17.9) 07/15/21 04:24 Hct 46.0 % (39.6-49.0) 07/15/21 04:24 Plt Count 307 K/uL (152-406) 07/15/21 04:24 PT 15.3 SECONDS (9.5-12.5) H 07/11/21 16:40 INR 1.33 07/11/21 16:40 Sodium 138 mmol/L (136-145) 07/15/21 04:24 Potassium 4.4 mmol/L (3.5-5.1) 07/15/21 04:24 BUN 27 mg/dL (7-18) H 07/15/21 04:24 Creatinine 0.75 mg/dL (0.55-1.3) 07/15/21 04:24 Glucose 178 mg/dL (74-106) H 07/15/21 04:24 Phosphorus 4.3 mg/dL (2.5-4.9) 07/15/21 04:24 Magnesium 2.4 mg/dL (1.8-2.4) 07/15/21 04:24 Total Bilirubin 0.5 mg/dL (0.2-1.0) 07/15/21 04:24 AST 42 U/L (15-37) H 07/15/21 04:24 ALT 123 U/L (12-78) H 07/15/21 04:24 Alkaline Phosphatase 47 U/L (45-117) 07/15/21 04:24 Triglycerides 175 mg/dL (<150) H 07/12/21 04:30 Cholesterol 167 mg/dL (<200) 07/12/21 04:30 HDL Cholesterol 22 mg/dL (40-60) L 07/12/21 04:30 Cholesterol/HDL Ratio 7.59 07/12/21 04:30 Home Medications: Benzonatate [Tessalon Perle*] 100 mg PO TID PRN #30 cap 07/15/21 Cholecalciferol (Vitamin D3) [Vitamin D3] 4,000 unit PO DAILY #60 capsule 07/15/21 Famotidine [Pepcid*] 40 mg PO DAILY #60 tab 07/15/21 Metformin HCl [Glucophage*] 500 mg PO BIDWM #60 tab 07/15/21 Rivaroxaban [Xarelto*] 10 mg PO DAILY AT SUPPER #30 tablet 07/15/21 Thiamine HCl [Vitamin B-1*] 200 mg PO DAILY #60 tablet 07/15/21 predniSONE [Deltasone] 20 mg PO BID #21 tab 07/15/21 New Medications: Metformin HCl [Glucophage*] 500 mg PO BIDWM #60 tab Famotidine [Pepcid*] 40 mg PO DAILY #60 tab predniSONE [Deltasone] 20 mg PO BID #21 tab Benzonatate [Tessalon Perle*] 100 mg PO TID PRN #30 cap PRN Reason: Cough Thiamine HCl [Vitamin B-1*] 200 mg PO DAILY #60 tablet Cholecalciferol (Vitamin D3) [Vitamin D3] 4,000 unit PO DAILY #60 capsule Rivaroxaban [Xarelto*] 10 mg PO DAILY AT SUPPER #30 tablet Diet: ADA Activity: Ad sofia Followup: Tee Khan MD [ACTIVE - CAN ADMIT] - 1 Week NONE,NONE [Primary Care Provider] - 1-2 Weeks Time spent managing pt's care (in minutes): 37
[2021-07-15] MEDS: RIVAROXABAN 10 MG TABLET PO SCH (16:55)
--- NOTE | 2021-07-15 17:53 | P.PN ---
Subjective Date of Service: 07/15/21 Chief Complaint: covid pneumonia Patient states he is feeling much better today. Oxygen weaned down to 3 L. He has no new complaint. Physical Examination - Vital Signs Temperature: 97.9 F Blood Pressure: 113/81 Pulse: 57 Respirations: 22 Pulse Ox (%): 96 Assessment And Plan - Current Problems (Diagnosis) (1) Acute respiratory failure with hypoxia Current Visit: Yes Status: Acute (2) Pneumonia due to COVID-19 virus Current Visit: Yes Status: Acute (3) Asthma Current Visit: Yes Status: Chronic Qualifiers: Asthma severity: mild Asthma persistence: intermittent Asthma complication type: with acute exacerbation Qualified Code(s): J45.21 - Mild intermittent asthma with (acute) exacerbation (4) T2DM (type 2 diabetes mellitus) Current Visit: Yes Status: Chronic Qualifiers: Diabetes mellitus penitentiary insulin use: without long term care social worker use Diabetes mellitus complication status: without complication Qualified Code(s): E11.9 - Type 2 diabetes mellitus without complications - Plan Physical exam: General: Alert, NAD HEENT: Oxygen by nasal cannula Neck: Supple, JVD not distended Respiratory: Nonlabored breathing. Cardiovascular: No edema, Regular rate/rhythm, Normal S1 S2 Gastrointestinal: Normal bowel sounds, Soft and benign, Non-distended Musculoskeletal: No swelling Integumentary: No rashes, No erythema, No cyanosis Neurological: No focal neurologic deficit. Plan Continue IV steroid, vitamin supplementation. Pulmonary-Dr. Khan is following Continue baricitinib. Need to wean oxygen Incentive spirometry Xarelto for DVT prophylaxis. Insulin sliding scale for glucose management. Home oxygen ordered Waiting for oxygen to be delivered for discharge.
[2021-07-15] MEDS: INSULIN GLARGINE 100 UNIT/ML SQ SCH (20:28)
[2021-07-16] MEDS: FAMOTIDINE 20 MG TAB PO SCH (04:09)
[2021-07-16 04:59] VITALS: BMI 25.7
[2021-07-16 05:56] LABS: Absolute Lymphocytes (CBC) 0.4 K/uL (0.7-4.9); Basophils % 0.1 % (0-1.3); Hematocrit 44.5 % (39.6-49.0); Lymphocytes % 3.6 % (15.3-44.8); MPV 7.8 fL (7.6-11.3); RBC Red Blood Cell Count 5.23 M/uL (4.33-5.43)
[2021-07-16 06:43] LABS: ALT/SGPT 144 U/L (12-78); AST/SGOT 33 U/L (15-37); Albumin 2.4 g/dL (3.4-5.0); Alkaline Phosphatase 48 U/L (45-117); BUN Blood Urea Nitrogen 30 mg/dL (7-18); Bicarbonate 27 mmol/L (21-32); Bilirubin Total 0.5 mg/dL (0.2-1.0); Glucose Level 195 mg/dL (74-106); Magnesium 2.6 mg/dL (1.8-2.4); Phosphorus 4.5 mg/dL (2.5-4.9); Potassium 4.3 mmol/L (3.5-5.1); Protein, Total 6.9 g/dL (6.4-8.2); Sodium Level 138 mmol/L (136-145)
[2021-07-16] MEDS: ASPIRIN EC 81 MG TAB PO SCH (08:42)
[2021-07-16] MEDS: VITAMIN D 1000 UNIT TAB PO SCH (08:42)
[2021-07-16] MEDS: THIAMINE HCL 100 MG TABLET PO SCH (08:43)
[2021-07-16] MEDS: BARICITINIB 2 MG TABLET PO SCH (08:43)
[2021-07-16] MEDS: METHYLPREDNISOLONE 125 MG INJ IV SCH (08:43)
[2021-07-16] MEDS: INSULIN -REGULAR HUMAN 50 UNIT/0.5 ML ML SQ SCH ×4 (08:44→20:54)
[2021-07-16 10:10] LABS: Platelet Estimate ADEQ; White Blood Cell Scan OK (OK)
[2021-07-16 10:11] LABS: Blood Morphology Comment NOT SEEN (NOT SEEN)
--- NOTE | 2021-07-16 10:33 | P.PN ---
Subjective Date of Service: 07/16/21 Chief Complaint: covid pneumonia Patient is doing well is alert oriented responsive cooperative on 2 L of nasal cannula oxygen Review of Systems General: Weakness Respiratory: Shortness of Breath Physical Examination - Vital Signs Temperature: 97.9 F Blood Pressure: 111/68 Pulse: 48 Respirations: 19 Pulse Ox (%): 96 - Physical Exam General: Alert, In no apparent distress, Oriented x3, Cooperative Assessment & Plan - Problems (Diagnosis) (1) Pneumonia due to COVID-19 virus Current Visit: Yes Status: Acute Plan: Patient is doing a really well on 2 L nasal cannula oxygen plan to discharge home change prednisone to 20 mg twice a day Dc Barcitinib labs chemistries reviewed stable to go home on oxygen which has been ordered discharge on prednisone 10 mg twice a day for 2 weeks continue with low-dose aspirin follow- up with me in 2 week
--- NOTE | 2021-07-16 11:51 | P.PN ---
Subjective Date of Service: 07/16/21 Chief Complaint: covid pneumonia Patient has no complaint today. He denies shortness of breath. Oxygen weaned down to 2 L. Physical Examination - Vital Signs Temperature: 97.9 F Blood Pressure: 111/68 Pulse: 48 Respirations: 19 Pulse Ox (%): 96 Assessment And Plan - Current Problems (Diagnosis) (1) Acute respiratory failure with hypoxia Current Visit: Yes Status: Acute (2) Pneumonia due to COVID-19 virus Current Visit: Yes Status: Acute (3) Asthma Current Visit: Yes Status: Chronic Qualifiers: Asthma severity: mild Asthma persistence: intermittent Asthma complication type: with acute exacerbation Qualified Code(s): J45.21 - Mild intermittent asthma with (acute) exacerbation (4) T2DM (type 2 diabetes mellitus) Current Visit: Yes Status: Chronic Qualifiers: Diabetes mellitus termite exterminator insulin use: without termite exterminator use Diabetes mellitus complication status: without complication Qualified Code(s): E11.9 - Type 2 diabetes mellitus without complications - Plan Physical exam: General: Alert, NAD HEENT: Oxygen by nasal cannula Respiratory: Nonlabored breathing. Cardiovascular: No edema, Regular rate/rhythm, Normal S1 S2 Gastrointestinal: Normal bowel sounds, Soft and benign, Non-distended Musculoskeletal: No swelling Integumentary: No rashes, no cyanosis Neurological: No focal neurologic deficit. Plan Continue IV steroid, vitamin supplementation. Pulmonary-Dr. Khan is following Continue baricitinib. Oxygen weaned down to 2 L. Incentive spirometry Xarelto for DVT prophylaxis. Insulin sliding scale for glucose management. Home oxygen ordered. Patient stable for discharge. Waiting for oxygen to be delivered for discharge.
[2021-07-16] MEDS: RIVAROXABAN 10 MG TABLET PO SCH (16:24)
[2021-07-16] MEDS: predniSONE 20 MG TAB PO SCH (20:54)
[2021-07-16] MEDS: INSULIN GLARGINE 100 UNIT/ML SQ SCH (20:54)
[2021-07-17 05:14] LABS: Absolute Lymphocytes (CBC) 0.5 K/uL (0.7-4.9); Basophils % 0.5 % (0-1.3); Hematocrit 42.8 % (39.6-49.0); Lymphocytes % 4.2 % (15.3-44.8); MPV 7.5 fL (7.6-11.3); RBC Red Blood Cell Count 4.97 M/uL (4.33-5.43)
[2021-07-17 05:22] LABS: ALT/SGPT 119 U/L (12-78); AST/SGOT 23 U/L (15-37); Albumin 2.3 g/dL (3.4-5.0); Alkaline Phosphatase 45 U/L (45-117); BUN Blood Urea Nitrogen 30 mg/dL (7-18); Bicarbonate 24 mmol/L (21-32); Bilirubin Total 0.4 mg/dL (0.2-1.0); C-Reactive Protein 6.95 mg/L (<3.00); Ferritin 505.4 ng/mL (26-388); Glucose Level 216 mg/dL (74-106); Magnesium 2.4 mg/dL (1.8-2.4); Phosphorus 3.4 mg/dL (2.5-4.9); Potassium 4.2 mmol/L (3.5-5.1); Protein, Total 6.4 g/dL (6.4-8.2); Sodium Level 137 mmol/L (136-145)
[2021-07-17] MEDS: INSULIN -REGULAR HUMAN 50 UNIT/0.5 ML ML SQ SCH ×2 (07:30→12:04)
[2021-07-17] MEDS: ASPIRIN EC 81 MG TAB PO SCH (08:13)
[2021-07-17] MEDS: THIAMINE HCL 100 MG TABLET PO SCH (08:13)
[2021-07-17] MEDS: FAMOTIDINE 20 MG TAB PO SCH (08:13)
[2021-07-17] MEDS: predniSONE 20 MG TAB PO SCH (08:13)
[2021-07-17] MEDS: VITAMIN D 1000 UNIT TAB PO SCH (08:13)
[2021-07-17 08:31] VITALS: O2SAT 96
[2021-07-17 13:40] VITALS: BP 96/70; TEMP 97.6
== END 2021-07-17 15:25 | disposition home or self-care (01) | DRG 177 ==
LOC: ER 16:30 → ERHOLD 20:51 → 3RD-ICU 21:16
PROVIDERS: ADMIT Internal Medicine; ATTEND Internal Medicine
DX: U07.1 COVID-19 (principal); J12.82 Pneumonia due to coronavirus disease 2019; J96.01 Acute respiratory failure with hypoxia; J45.21 Mild intermittent asthma with (acute) exacerbation; E11.9 Type 2 diabetes mellitus without complications
CPT/HCPCS: 36415; 71045; 71275; 80048; 80053; 80061; 80076; 81003; 81015; 82728; 82947; 83036; 83605; 83735; 83880; 84100; 84145; 84439; 84443; 84484; 85025; 85610; 86140; 87040; 87086; 87088; 93005; 94010; 94760; 96374; 96375; 97110; 97116; 97161; 99285; J2930; J3475; J7030; J7050; J7512; Q9967; U0003